=== PATIENT | female | born 1945 | race Caucasian/White ===

== ENCOUNTER 2019-08-20 12:43 | Outpatient (CLI) | payer MEDICARE, SELFPAY ==
--- NOTE | 2019-08-20 12:55 | MM_ITS ---
WS: [id number] RIGHT DIGITAL MAMMOGRAPHY WITH CAD CLINICAL INFORMATION: 6 MO F/U RT BREAST NODULE COMPARISON: 12/31/2018 and 07/14/2018 TECHNIQUE: 3 views of the right breast were obtained. FINDINGS: Fatty-replaced right breast. Again seen is the 7 mm nodule lower inner quadrant right breast with ass ociated calcifications. Adjacent post biopsy marker. This is unchanged in appearance. Ultrasound is p ending. ULTRASOUND BREAST RIGHT TECHNIQUE: Ultrasound right breast focused area of concern. CLINICAL INFORMATION: 6 MO F/U RT BREAST NODULE FINDINGS: Right breast ultrasound 2:00 position 2 cm in the nipple. Again seen is the hypoechoic partially calc ified nodule with adjacent biopsy marker. This is unchanged in appearance since the prior examination s. Recommend return to annual screening mammography. MM/[place] [id number] IMPRESSION: BI-RADS: 2-Benign FOLLOW UP: 1 Year Follow-up Recommend return to annual screening mammography.
== END 2019-08-20 12:44 | disposition home or self-care (01) ==
LOC: RADSHAW 12:46
PROVIDERS: Family Provider Internal Medicine; PCP Internal Medicine; Visit Provider Internal Medicine
DX: N63.14 Unspecified lump in the right breast, lower inner quadrant (principal); R92.8 Other abnormal and inconclusive findings on diagnostic imaging of breast
CPT/HCPCS: 76642; 77065

== ENCOUNTER → 2019-09-07 08:40 | Outpatient (BNVA) | payer MEDICARE, SELFPAY | PROVIDERS: Family Provider Internal Medicine; PCP Internal Medicine; Visit Provider Nurse Practitioner | DX: F43.12 Post-traumatic stress disorder, chronic (principal) | CPT/HCPCS: 99213 ==

== ENCOUNTER 2019-12-01 12:43 | Outpatient (CLI) | payer MEDICARE, SELFPAY ==
--- NOTE | 2019-12-01 12:50 | XR_ITS ---
WS: [id number] Left hip, AP and frog-leg views, 12/01/2019 Clinical Data: PAIN IN L HIP/S/P FALL Comparison: None. Findings: No fractures or dislocations are seen. The hip joint is intact. The soft tissues are not remarkable. The adjacent pelvis is normal. XR/XR hip LT 2-3V wo/w pel* [id number] Impression: Negative left hip.
== END 2019-12-01 12:44 | disposition home or self-care (01) ==
LOC: RAD 12:47
PROVIDERS: Family Provider Internal Medicine; PCP Internal Medicine; Visit Provider Internal Medicine
DX: M25.552 Pain in left hip (principal)
CPT/HCPCS: 73502

== ENCOUNTER 2020-02-03 11:18 | Outpatient (CLI) | payer MEDICARE, SELFPAY ==
--- NOTE | 2020-02-03 11:26 | XR_ITS ---
WS: [id number] Thoracic spine, 3 views, 02/03/2020 Clinical Data: PAIN IN MID BACK, FALL, EVAL FOR COMPRESSION FRACTURE Comparison: None. Findings: There is a compression fracture of the T12 vertebral body with loss of at least 50% of the anterior a nd central vertebral body height. No other compression fractures are seen. The disc heights are normal. The paravertebral regions are unremarkable. There is degenerative change of the upper lumbar vertebral bodies. There is calcification in the region of the left carotid bifur cation. Osteoporosis of the vertebral bodies is present. XR/XR thoracic spine 3V* [id number] Impression: T12 compression fracture with loss of at least 50% of vertebral body height.
== END 2020-02-03 11:19 | disposition home or self-care (01) ==
LOC: RADWPI 11:25
PROVIDERS: Family Provider Internal Medicine; PCP Internal Medicine; Visit Provider Internal Medicine
DX: S22.080A Wedge compression fracture of T11-T12 vertebra, initial encounter for closed fracture (principal); W19.XXXA Unspecified fall, initial encounter
CPT/HCPCS: 72072

== ENCOUNTER 2020-02-08 17:08 | Outpatient (CLI) | payer MEDICARE, SELFPAY ==
--- NOTE | 2020-02-08 17:25 | MR_ITS ---
WS: [id number] EXAM: MR hip LT wo con* [id number] DATE OF EXAMINATION: 02/08/2020, 1805 hours COMPARISON: CT of the abdomen and pelvis from 11/08/2013. HISTORY: 74 years old with multiple falls for the last 2 months. Complaining of left hip pain. TECHNIQUE: Axial and coronal T1 and T2 inversion recovery; left hip sagittal T1 and T2 inversion recovery FINDINGS: There are findings of edema within both sides of the sacrum consistent with sacral insufficiency frac tures. Edema is also present within the left anterior column of the acetabulum with a fracture at the juncti on with the anterior column and left superior pubic ramus. Additional fracture involving the left pub ic body and the adjacent inferior pubic ramus seen. The left proximal femur is without evidence of paco ny fracture. Small amount of inflammatory changes seen within the adductor muscles surrounding the le ft hip most likely compensatory in nature as well as a small amount of greater trochanteric bursitis change. Some minimal right hip trochanteric bursitis changes also noted. Muscle groups show slight changes of atrophy. Uterus is atretic otherwise unremarkable. No adnexal ma ss. MR/MR hip LT wo con* [id number] IMPRESSION: Findings of bilateral sacral insufficiency fractures. Additional insufficiency fracture involving the left hip anterior acetabular co lumn as well as a fracture involving the left tibia body and adjacent left infe rior pubic ramus. No proximal left femur fracture seen. Greater trochanteric bursitis changes bilaterally. Small amount of edema within the adductor muscles medial left hip region most l ikely compensatory in nature.
== END 2020-02-08 17:09 | disposition home or self-care (01) ==
LOC: RADSHAW 17:16
PROVIDERS: PCP Internal Medicine; Visit Provider Internal Medicine
DX: R29.6 Repeated falls (principal); S32.10XA Unspecified fracture of sacrum, initial encounter for closed fracture; R60.0 Localized edema; X58.XXXA Exposure to other specified factors, initial encounter
CPT/HCPCS: 73721

== ENCOUNTER 2020-02-21 13:32 | Outpatient (CLI) | payer MEDICARE, SELFPAY ==
[2020-02-21 15:07] LABS: 25 Hydroxy Vitamin D 49 ng/mL (30-100); Calcium 9.6 mg/dL (8.5-10.5); Parathyroid Hormone 78.2 pg/mL (15-65); Thyroid Stimulating Hormone 1.94 uIU/mL (0.27-4.20)
== END 2020-02-21 13:33 | disposition home or self-care (01) ==
PROVIDERS: PCP Internal Medicine; Visit Provider Internal Medicine
DX: M81.0 Age-related osteoporosis without current pathological fracture (principal)
CPT/HCPCS: 82306; 82310; 83970; 84443

== ENCOUNTER 2020-02-22 14:20 | Outpatient (CLI) | payer MEDICARE, SELFPAY ==
--- NOTE | 2020-02-22 14:24 | XR_ITS ---
WS: [id number] SCREENING DEXA SCAN [facility] CLINICAL INFORMATION: OSTEOPOROSIS COMPARISON: FINDINGS: Lumbar spine bone mineral density likely spuriously elevated due to endplate sclerosis. The L1-L4 bone mineral density measures 1.077 g/cm2. This corresponds to a T score score of -0.9 and Z score of 0.6. Left femoral neck bone mineral density measures 0.696 g/cm2. This corresponds to a T score of -2.5 an d Z score of -1.0. Right femoral neck bone mineral density measures 0.745 g/cm2. This corresponds to a T score -2.1of an d Z score of -0.6. Mean femoral neck bone mineral density measures 0.721 g/cm2. This corresponds to a T score of -2.3 an d Z score of -0.8. XR/XR DEXA axial skeleton* [id number] IMPRESSION: Osteoporosis femoral necks. Patient's FRAX calculated 10 year probability for major osteoporotic fracture i s 23.1 % and osteoporotic hip fracture is 9.6%.
== END 2020-02-22 14:21 | disposition home or self-care (01) ==
PROVIDERS: PCP Internal Medicine; Visit Provider Internal Medicine
DX: M81.0 Age-related osteoporosis without current pathological fracture (principal)
CPT/HCPCS: 77080

== ENCOUNTER → 2020-02-25 13:30 | Outpatient (BNVA) | payer MEDICARE, SELFPAY | PROVIDERS: PCP Internal Medicine; Referring Provider Internal Medicine; Visit Provider Internal Medicine | DX: M80.059A Age-related osteoporosis with current pathological fracture, unspecified femur, initial encounter for fracture (principal); E34.9 Endocrine disorder, unspecified; R79.89 Other specified abnormal findings of blood chemistry | CPT/HCPCS: 99204 ==

== ENCOUNTER → 2020-03-09 07:54 | Outpatient (BNVA) | payer MEDICARE, SELFPAY | PROVIDERS: Family Provider Internal Medicine; PCP Internal Medicine; Visit Provider Nurse Practitioner | DX: F43.12 Post-traumatic stress disorder, chronic (principal); F41.1 Generalized anxiety disorder | CPT/HCPCS: 99213 ==

== ENCOUNTER 2020-03-17 | Outpatient (CLI) | payer MEDICARE, SELFPAY | END 2020-03-17 23:55 | disposition home or self-care (01) | LOC: SPT 06-07 08:13 | PROVIDERS: PCP Internal Medicine; Referring Provider Internal Medicine; Visit Provider Internal Medicine | DX: Z46.89 Encounter for fitting and adjustment of other specified devices (principal); R29.6 Repeated falls | CPT/HCPCS: 97760; L0456 ==

== ENCOUNTER 2020-03-17 12:34 | Outpatient (CLI) | payer MEDICARE, SELFPAY ==
--- NOTE | 2020-03-17 12:40 | XR_ITS ---
WS: [id number] Left hip, AP and frog leg, AP pelvis, 03/17/2020 Clinical Data: LEFT HIP PAIN Comparison: Left hip, 12/01/2019. Findings: There is a fracture of the junction of the left superior pubic ramus with the body of the left ilium. There is a fracture of the inferior left ischiopubic ramus with periosteal new bone formation. No other pelvic fractures are seen. There are no hip fractures. The SI joints and pubic symphysis are not remarkable. XR/XR hip LT 2-3V wo/w pel* [id number] Impression: Fractures of the left superior and left inferior ischiopubic rami which are sev eral weeks old.
== END 2020-03-17 12:35 | disposition home or self-care (01) ==
LOC: RAD 12:38
PROVIDERS: PCP Internal Medicine; Visit Provider Nurse Practitioner Family
DX: S32.592A Other specified fracture of left pubis, initial encounter for closed fracture (principal); X58.XXXA Exposure to other specified factors, initial encounter
CPT/HCPCS: 73502

== ENCOUNTER 2020-04-10 10:19 | Outpatient (CLI) | payer MEDICARE, SELFPAY ==
--- NOTE | 2020-04-10 10:42 | MR_ITS ---
WS: [id number] MRI LUMBAR SPINE NONCONTRAST HISTORY: BACK PAIN WITH RADICULOPATHY/PAIN IN LEFT LEG COMPARISON: CT abdomen and pelvis 11/08/2013 TECHNIQUE: Sagittal and axial multisequence imaging is submitted. CT from 11/08/2013 is reviewed. 5 nonrib-bearing vertebral bodies were identified on the prior CT. The re are probably 11 thoracic vertebral bodies. Thoracolumbar scoliosis. Burst fractures of T10 and T11. T11 retrolisthesis by 12 mm with contact on the thecal sac and conus. There is encroachment upon the thecal sac at the T10 level through the retropulsion of T10 and facet arthritis. These are probably subacute fractures as there is still increased T2 signal on the STIR s equence. L5 anterolisthesis by 12.3 mm. Slight retrolisthesis of L1. 20% compression fracture of L3. Severe disc desiccation at L5-S1. Otherwise mild spondylitic changes throughout the lumbar spine. Conus terminates normally at L1. L1-L2: Diffuse annular disc bulging with a moderate size central disc protrusion and annular fissure. L2-L3: Diffuse annular disc bulging and osteophytic ridging. Moderate bilateral foraminal and subarti cular recess stenosis. L3-L4: Mild annular disc bulging and osteophytic ridging. Mild foraminal narrowing. L4-L5: Mild annular disc bulging. Shallow central disc protrusion. Mild bilateral foraminal narrowing . L5-S1: Mild deformity the central thecal sac. No central stenosis. Moderate bilateral subarticular re cess and foraminal stenosis. MR/MR lumbar spine wo con* [id number] IMPRESSION: 1. 5 lumbar type vertebral bodies and 11 thoracic vertebral bodies. 2. Subacute burst fractures at T10 and T11 with encroachment upon the conus. 3. T11 retropulsion by 12 mm contacting and displacing the ventral thoracic co rd. 4. Moderate bilateral foraminal and subarticular recess stenosis at L2-3. 5. Moderate size central disc protrusion at L1-2 without stenosis. 6. Moderate bilateral subarticular and foraminal stenosis at L5-S1. 7. L5 grade 2 spondylolisthesis. 8. Remote 20% L3 compression fracture. 9. There is additional marrow edema noted in the lower thoracic spine involvin g the facet joints, paravertebral soft tissue and the facets of the thoracic ve rtebral bodies. Follow-up MRI thoracic spine may be necessary for for complete evaluation. Also to better assess the burst fractures in the lower thoracic spi ne. Probably related to the acute fall. These fractures at T10 and T11 have pro gressed since 02/03/2020.
== END 2020-04-10 10:20 | disposition home or self-care (01) ==
PROVIDERS: PCP Internal Medicine; Visit Provider Surgery
DX: M54.9 Dorsalgia, unspecified (principal); M54.10 Radiculopathy, site unspecified; M48.54XA Collapsed vertebra, not elsewhere classified, thoracic region, initial encounter for fracture; M48.061 Spinal stenosis, lumbar region without neurogenic claudication; M51.26 Other intervertebral disc displacement, lumbar region; M48.07 Spinal stenosis, lumbosacral region; M43.16 Spondylolisthesis, lumbar region; M48.56XA Collapsed vertebra, not elsewhere classified, lumbar region, initial encounter for fracture; R93.7 Abnormal findings on diagnostic imaging of other parts of musculoskeletal system; M51.34 Other intervertebral disc degeneration, thoracic region
CPT/HCPCS: 72148

== ENCOUNTER 2020-04-25 12:57 | Outpatient (RCR) | payer MEDICARE, SELFPAY | END 2020-05-22 23:59 | disposition home or self-care (01) | LOC: SPT 12:57 | PROVIDERS: PCP Internal Medicine; Visit Provider Internal Medicine | DX: R29.6 Repeated falls (principal) | CPT/HCPCS: 97110; 97162 ==

== ENCOUNTER 2020-05-23 06:00 | Outpatient (RCR) | payer MEDICARE, SELFPAY | END 2020-06-22 23:59 | disposition home or self-care (01) | LOC: SPT 06:00 | PROVIDERS: PCP Internal Medicine; Visit Provider Internal Medicine | DX: R29.6 Repeated falls (principal) | CPT/HCPCS: 97110 ==

== ENCOUNTER 2020-06-23 06:00 | Outpatient (RCR) | payer MEDICARE, SELFPAY | END 2020-07-23 23:59 | disposition home or self-care (01) | LOC: SPT 06:00 | PROVIDERS: PCP Internal Medicine; Visit Provider Internal Medicine | DX: R29.6 Repeated falls (principal) | CPT/HCPCS: 97110 ==

== ENCOUNTER 2020-08-25 13:24 | Outpatient (CLI) | payer MEDICARE, SELFPAY ==
--- NOTE | 2020-08-25 13:40 | MR_ITS ---
WS: [id number] MRI THORACIC SPINE WITHOUT CONTRAST TECHNIQUE: Sagittal T1, T2 and STIR imaging. Axial T2 imaging. Noncontrast imaging obtained. CLINICAL INFORMATION: STABLE BURST FRACTURE OF T 11-12 VERTEBRA COMPARISON: MRI April 10, 2020 FINDINGS: Counting performed from the craniocervical junction. 11 thoracic vertebral bodies and 5 lumbar verteb ral bodies. This is in keeping with the prior number convention. Mild thoracic kyphosis. Mild thoracic curve. Anterior wedging with chronic compression of the T10 and T11 vertebral bodies not significantly changed since April 10, 2020. Small fluid-filled fracture c lefts. Moderate retropulsion of the posterior inferior cortex at T11 appears unchanged with slight in dentation on the thoracic cord and mild central canal stenosis. Mild central canal stenosis at T10-11 due to mild disc bulging. No new compression fractures. Small central disc protrusion L1-2 with slight effacement of the ventral thecal sac. Mild bony forami nal narrowing worse at bilateral T9-T10, bilateral T10-11, and right T11-T12. Moderate facet arthropa thy in the lower thoracic spine. Cord signal is normal. Large esophageal hiatal hernia.Lobulated soft tissue density in the upper mediastinum partially visua lized measuring 2.4 x 2.1 cm may be arising from the left inferior thyroid or adjacent esophagus. Rec ommend further evaluation with contrast-enhanced chest CT. This abuts the upper thoracic esophagus. MR/MR thoracic spin wo con* [id number] IMPRESSION: 1. Chronic compression fractures T10 and T11 vertebral bodies with anterior we dging unchanged since April 10, 2020. No new compression fractures. 2. Mild retropulsion of the T11 vertebral body with mild disc bulging at T10-T 11 and T11-T12. Slight indentation on the thoracic cord at T11 with mild centra l canal stenosis. Mild central canal stenosis at T10-11. 3. Mild bony foraminal narrowing described above. 4. Large esophageal hiatal hernia with partial intrathoracic stomach. 5. Lobulated soft tissue density in the upper mediastinum partially visualized measuring 2.4 x 2.1 cm may be arising from the left inferior thyroid or adjace nt esophagus. Recommend further evaluation with contrast-enhanced chest CT.
== END 2020-08-25 13:25 | disposition home or self-care (01) ==
PROVIDERS: PCP Internal Medicine; Visit Provider Anesthesiology Pain Medicine
DX: S22.081A Stable burst fracture of T11-T12 vertebra, initial encounter for closed fracture (principal); S22.070A Wedge compression fracture of T9-T10 vertebra, initial encounter for closed fracture; S22.080A Wedge compression fracture of T11-T12 vertebra, initial encounter for closed fracture; K44.9 Diaphragmatic hernia without obstruction or gangrene; X58.XXXA Exposure to other specified factors, initial encounter
CPT/HCPCS: 72146

== ENCOUNTER → 2020-09-12 15:32 | Outpatient (BNVA) | payer MEDICARE, SELFPAY | PROVIDERS: PCP Internal Medicine; Visit Provider Internal Medicine | DX: E34.9 Endocrine disorder, unspecified (principal); E83.59 Other disorders of calcium metabolism; M80.059A Age-related osteoporosis with current pathological fracture, unspecified femur, initial encounter for fracture; M81.0 Age-related osteoporosis without current pathological fracture | CPT/HCPCS: 99214 ==

== ENCOUNTER 2020-09-27 13:11 | Outpatient (CLI) | payer MEDICARE, SELFPAY ==
--- NOTE | 2020-09-27 13:24 | CT_ITS ---
WS: [id number] CT CHEST WITH INTRAVENOUS CONTRAST HISTORY: ABNORMAL MAGNETIC RESONANCE TECHNIQUE: Contiguous 5 mm axial imaging performed on the thorax. Coronal and sagittal reformats are submitted. All CT scans at [facility] use at least one of these dose optimization techniq ues: automated exposure control; mA and/or kV adjustment per patient size (includes targeted exams wh ere dose is matched to clinical indication); or iterative reconstruction. CONTRAST: Visipaque 320; 95 mL IV. DLP: 869.13 mGycm COMPARISON: MRI thoracic spine 08/25/2020. Lungs and central airway: Mild volume loss in the LEFT lung is probably due to mild scoliosis. No pul monary nodule or mass. No pneumonia. Mild dependent changes and subsegmental atelectasis at the lung bases. Pleura: Normal. No pleural effusion. Heart and pericardium: Mildly enlarged heart. Very mild pericardial thickening surrounding the heart but no fluid. Mediastinum and darrin: No mediastinum or hilar adenopathy. Vessels: Moderate atherosclerosis aorta. Normal size pulmonary artery. Chest wall and lower neck: Enlarged LEFT substernal thyroid corresponds to the abnormality seen on th e recent MRI. Portion of the LEFT thyroid extends inferior to the clavicular heads and posterior to t he trachea to abut the esophagus. There is very slight deviation and mass effect upon the esophagus. Thyroid nodule is similar enhancement as the remaining thyroid. Nodule measures 2.6 x 1.3 cm. Upper abdomen: Stomach extends above the diaphragm. There is no obstruction of the stomach or torsion . Majority of the stomach is above the diaphragm. Osseous structures: Severe compression fractures at T10 and T11 with retropulsion of the T11 vertebra l body. Focal osteophyte or bone fragment projecting into the thecal sac and deforming the thecal sac at the T11 level. These findings were noted on the prior MRI. CT/CT chest w con* [id number] IMPRESSION: 1. Soft tissue mass described on the recent MRI thoracic spine corresponds to a LEFT substernal and posterior tracheal thyroid nodule which is probably part of a goiter. Enhancement and density is similar to the remaining thyroid gland. 2. Retrosternal LEFT thyroid nodule abuts and slightly displaces the esophagus to the RIGHT. 3. Intrathoracic stomach.
== END 2020-09-27 13:12 | disposition home or self-care (01) ==
LOC: RADWPI 13:17
PROVIDERS: PCP Internal Medicine; Visit Provider Internal Medicine
DX: R93.89 Abnormal findings on diagnostic imaging of other specified body structures (principal); E04.1 Nontoxic single thyroid nodule
CPT/HCPCS: 71260; Q9967

== ENCOUNTER 2020-09-29 13:34 | Outpatient (CLI) | payer MEDICARE, SELFPAY ==
--- NOTE | 2020-09-29 13:36 | MM_ITS ---
WS: [id number] BILATERAL SCREENING DIGITAL MAMMOGRAM WITH CAD HISTORY: SCREENING COMPARISON: 08/20/2019 and 12/31/2018 Bilateral CC and MLO views submitted. Computer aided detection analyzed. Breast composition: There are scattered areas of fibroglandular density. No suspicious masses, microc alcifications or architectural distortion. Benign calcifications are stable in the RIGHT breast. MM/[place] [id number] IMPRESSION: BI-RADS: 2-Benign FOLLOW UP: 1 Year Follow-up
== END 2020-09-29 13:35 | disposition home or self-care (01) ==
LOC: RADSHAW 13:35
PROVIDERS: PCP Internal Medicine; Visit Provider Internal Medicine
DX: Z12.31 Encounter for screening mammogram for malignant neoplasm of breast (principal)
CPT/HCPCS: 77067

== ENCOUNTER → 2020-11-10 11:58 | Outpatient (BNVA) | payer MEDICARE, SELFPAY | PROVIDERS: PCP Internal Medicine; Visit Provider Surgery | DX: Z01.812 Encounter for preprocedural laboratory examination (principal); Z20.822 Contact with and (suspected) exposure to COVID-19 | CPT/HCPCS: 87635 ==

== ENCOUNTER 2020-11-13 09:47 | Inpatient (IN) | payer MEDICARE, SELFPAY ==
[2020-11-13] VITALS (11 sets, daily range): BP systolic 100–158; BP diastolic 54–88; PULSE 61–91; RESP 17–20; TEMP 36.6–37.2; O2SAT 90–99; BMI 25.9
--- NOTE | 2020-11-13 09:50 | CT_ITS ---
WS: [id number] CT HEAD NONCONTRAST HISTORY: HEADACHE TECHNIQUE: Contiguous axial imaging performed through the brain in 2.5 mm imaging. Bone and soft tiss ue windows. Sagittal and coronal reformats reviewed. All CT scans at [facility] use at le ast one of these dose optimization techniques: automated exposure control; mA and/or kV adjustment pe r patient size (includes targeted exams where dose is matched to clinical indication); or iterative r econstruction. DLP: 1203.20 mGy-cm. COMPARISON: None available. No acute intracranial hemorrhage, midline shift or mass effect. Mild atrophy and mild chronic microvascular ischemic disease. No large territory prior infarcts. Ventricles: Ventricles and extra-axial spaces are prominent on the basis of atrophy. There are a few foci of air associated with the RIGHT dorsum sellae. This may be pneumatized bone. Th e wall of the adjacent sinus cavities appears intact. Paranasal sinuses: Near complete opacification of the RIGHT sphenoid sinus. Mastoid air cells: Well pneumatized. Calvarium and scalp: Skull is intact with no soft tissue edema or swelling. CT/CT head wo con* [id number] IMPRESSION: 1. No acute intracranial hemorrhage or edema. 2. Mild atrophy and mild chronic microvascular ischemic disease.
--- NOTE | 2020-11-13 09:50 | XR_ITS ---
WS: [id number] Exam: XR chest 1V portable [id number] Date/Time of Exam: 11/13/2020 9:53 AM Reason For Exam: CVA Comparison 03/01/2014. The lungs are fully expanded and clear. Heart size is upper limits normal. No pleural effusions. Ther e may be a hiatal hernia present. Regional bony structures are intact. The mediastinum is not widened . XR/XR chest 1V portable [id number] IMPRESSION: 1. No acute cardiopulmonary finding. 2. There may be a hiatal hernia present
--- NOTE | 2020-11-13 09:51 | ECG_ITS ---
[facility] Test Date: 2020-11-13 Pat Name: Shanon Chávez Department: Room: Gender: Female [employer]: : [id number] Requested By: Darci Cespedes Order Number: [id number] Dl MD: Chris Monson M.D. Measurements Intervals [place] Rate: 76 P: 54 WV: 177 QRS: 51 QRSD: 78 T: 42 QT: 379 QTc: 427 Interpretive Statements SINUS RHYTHM LOW QRS VOLTAGE [QRS DEFLECTION < 0.5/1.0 mV IN LIMB/CHEST LEADS] No previous ECG available for comparison Electronically Signed On 11-13-2020 16:15:10 CDT by Chris Monson M.D. [email or web address]
--- NOTE | 2020-11-13 10:00 | ED_ITS ---
HPI - General Adult General: Chief complaint: Altered Mental Status Stated complaint: ams/ slurred speech/ constricted pupils Time Seen by Provider: 11/13/20 09:49 Source: patient, EMS and RN notes reviewed Mode of arrival: EMS Limitations: altered mental status History of Present Illness: HPI narrative: This patient is a 75-year-old female who presents to the emergency department from confusion/altered mental status. Patient is a history of chronic pain and does take hydrocodone regularly. Initially the concern by family was the patient might have overdosed. Patient has been suffering from some shaking over the past few days and complained of increased left hip pain. Patient was having some slurred speech last night around 8 PM but the family let her go to bed. Patient awakened this morning and having some more difficulty with confusion. Glucose at the bedside was 74. Patient is is awake and alert answers questions appropriately. But is somewhat slow to respond at times. Does not appear to be in acute strokelike pattern however we will CT scan the head and evaluate treat further as needed. Patient does take multiple medications that are on the patient's medication list. The patient states she has been taking her medications regularly. Onset (ago): day(s) Associated symptoms: Reports confusion; Deny chest pain, dyspnea, headache(s), nausea, rash, palpitations or vomiting Review of Systems General: Reports: 10 or more systems reviewed and unremarkable except in HPI and below Const: Denies: fever(s), chills, body aches or fatigue Eyes: Denies: change in vision or blurry vision ENMT: Denies: throat pain, hoarseness or mouth pain Card: Denies: chest pain, palpitations, irregular heart rhythm, edema, swelling of feet/ankles or lightheadedness Resp: Denies: dyspnea, productive cough, non-productive cough, wheezing or pain on inspiration GI: Denies: abdominal pain, nausea or vomiting : Denies: flank pain, difficulty voiding, dysuria, urinary frequency, urinary urgency or urinary hesitancy Musc: Denies: neck pain, back pain, extremity pain, extremity swelling, joint pain, joint swelling, joint redness, joint warmth or limited range of motion Skin/Breast: Denies: rash, pruritus, erythema or skin tenderness Neuro: Reports: sensory changes and confusion; Denies: headache(s), numbness in extremities or weakness in extremities Psych: Denies: anxiety or depression PFS ED PFSH: Medical History Depression Diabetes Dyslipidemia Post-traumatic stress disorder, chronic Surgical History H/O left wrist surgery Status post colonoscopy Family History Mother Diabetes Father No problems noted. Social History Smoking and tobacco status: never smoked Alcohol intake: never Physical Exam Const: COMMON NORMALS: no acute distress, average body habitus, no limitations, healthy appearing, alert and well nourished O RIENTATION/CONSCIOUSNESS: Yes oriented to person HENMT: COMMON NORMALS: normocephalic, atraumatic, hearing grossly normal bilaterally, external ears normal, EAC's normal, TM's normal bilaterally, Normal external nose present, Normal nasal mucous membranes and turbinates present, moist oral mucous membranes, oropharynx normal, dentition normal and gingiva normal HEAD & SCALP: normocephalic and atraumatic NOSE: Normal external nose present and Normal nasal mucous membranes and turbinates present EXTERNAL EAR: Yes external ears normal EXTERNAL AUDITORY CANAL: EAC's normal TYMPANIC MEMBRANE: TM's normal bilaterally Neck/C-Spine: COMMON NORMALS: full ROM, no lymphadenopathy, supple, no meninge al signs, no JVD, Thyroid normal and No carotid bruits THYROID: Thyroid normal Chest: COMMONS NORMALS: normal inspection of the chest, normal palpation of entire chest wall, normal inspection of the breasts and normal palpation of the breasts Breast/axilla inspection: Yes normal inspection of the breasts BREAST/AXILLA PALPATION: Yes normal palpation of the breasts Resp: COMMON NORMALS: normal respiratory effort, No retractions, No use of accessory muscles, clear to auscultation bilaterally and percussion normal AUSCULTATION: clear to auscultation bilaterally PERCUSSION: percussion normal Cardio: COMMON NORMALS: no JVD, regular rate, regular rhythm, S1 normal heart sound present, S2 normal heart sound present, No gallops present (Cardio), No clicks present (Cardio), No murmurs present (Cardio), No rub (Cardio) and Peripheral pulses 2+ throughout RATE: regular rate RHYTHM: regular rhythm HEART SOUNDS: S1 normal heart sound present and S2 normal heart sound present PERIPHERAL PULSES: Peripheral pulses 2+ throughout GI: COMMON NORMALS: Normal to inspection, nondistended, normoactive bowel sounds present, Soft to palpation, non-tender, No hepatosplenomegaly present, no masses and no bruits PALPATION: Yes Soft to palpation and Yes No hepatosplenomegaly present : COMMON NORMALS: Yes no CVA tenderness, Yes normal external appearance, Yes normal appearance of the vagina, Yes normal appearance of the cervix, Yes normal bimanual exam, Yes No adnexal tenderness and Yes no masses BLADDER/KIDNEY EXAM: Yes no CVA tenderness BIMANUAL EXAM - VAGINA & UTERUS: Yes normal bimanual exam Back/Pelvis: COMMON NORMALS: no CVA tenderness, thoracic and lumbar spine normal to inspection, no thoracic nor lumbar tenderness, thoraco-lumbar ROM normal and straight leg raise negative bilaterally Extremity: COMMON NORMALS: normal to inspection, full ROM, capillary refill normal, no joint enlargement, no clubbing, cyanosis or edema, no calf tenderness and no pedal edema Neuro: COMMON NORMALS: CN's II-XII intact bilaterally, moves all extremities, no focal motor deficits and no sensory deficits noted SENSORIUM/ORIENTATION: Yes alert and Yes oriented to person MENINGEAL SIGNS: Yes no meningeal signs Course Reevaluation(s): Reevaluation #1: Patient is restless and appears to be a little bit confused. Patient explained in her IV lines and electrodes. Will give patient Ativan 25 mg to try to help calm down. Time: 10:29 Reevaluation #2: Patient has elevated lactate level. I do not believe this patient has sepsis but I do believe the lactate level is elevated due to the patient's tremors and shaking. Agitation. Patient has been treated with antibiotics and has had IV fluid bolus. However I do not believe the patient needs in the complete 30 mL/kg bolus at this time. But may need additional fluids. We will repeat the initial 500 cc bolus of normal saline and then will put her on normal saline at 125 mL's per hour. Patient will be admitted to the hospital. Rocephin given for UTI. Time: 11:47 Reevaluation #3: I did discuss at length with patient spouse at the bedside he stated that patient was having issues this morning when he come back into the bedroom about 630 this morning the patient was sitting and squatting and fighting with things and they went near. Patient has had a history of having problems with her medication and at times the states that he had had his medications for the patient was taken. He states normally everything is okay but she does have issues he is agreeable with patient be admitted to the hospital. Patient is calm at this time and resting comfortably after second 0.5 of Ativan has been given. Time: 11:59 Consultations: Consultation #1: I did discuss at length with Dr. Torres hospitalist. He will come see the patient and evaluate and accepts the patient for admission. Time: 11:59 Consultation #2: Patient was seen and evaluated by Dr. Torres who believes patient can go to the [facility] floor with observation with one-to-one at the bedside. Time: 12:42 Vital Signs: Vital signs: Vital Signs Temperature 98.8 F 11/13/20 09:50 Pulse Rate 84 11/13/20 10:07 Respiratory Rate 18 11/13/20 10:07 Blood Pressure 158/78 11/13/20 10:07 Pulse Oximetry 99 11/13/20 10:07 MDM - General Adult MDM Narrative: Medical decision making narrative: This patient is a 75-year-old female who presents to the emergency department from confusion/altered mental status. Patient is a history of chronic pain and does take hydrocodone regularly. Initially the concern by family was the patient might have overdosed. Patient has been suffering from some shaking over the past few days and complained of increased left hip pain. Patient was having some slurred speech last night around 8 PM but the family let her go to bed. Patient awakened this morning and having some more difficulty with confusion. Glucose at the bedside was 74. Patient is is awake and alert answers questions appropriately. But is somewhat slow to respond at times. Does not appear to be in acute strokelike pattern however we will CT scan the head and evaluate treat further as needed. Patient does take multiple medications that are on the patient's medication list. The patient states she has been taking her medications regularly. Patient appears to have be a urinary tract infection. Patient started on Rocephin. We will admit the patient for further altercations with patient and treatment. Patient has elevated lactate level. I do not believe this patient has sepsis but I do believe the lactate level is elevated due to the patient's tremors and shaking. Agitation. Patient has been treated with antibiotics and has had IV fluid bolus. However I do not believe the patient needs in the complete 30 mL/kg bolus at this time. But may need additional fluids. We will repeat the initial 500 cc bolus of normal saline and then will put her on normal saline at 125 mL's per hour. Patient will be admitted to the hospital. Rocephin given for UTI. I did discuss at length with patient spouse at the bedside he stated that patient was having issues this morning when he come back into the bedroom about 630 this morning the patient was sitting and squatting and fighting with things and they went near. Patient has had a history of having problems with her m edication and at times the states that he had had his medications for the patient was taken. He states normally everything is okay but she does have issues he is agreeable with patient be admitted to the hospital. Patient is calm at this time and resting comfortably after second 0.5 of Ativan has been given. I did discuss at length with Dr. Torres hospitalist. [facility] and accepts the patient for [facility]. Medical Records: Attestation: I reviewed the patient's medical records. Lab Data: Attestation: I reviewed the patient's lab results. Labs: Lab Results 11/13/20 11/13/20 11/13/20 Range/Units 09:52 09:59 10:05 WBC 16.9 H (4.0-10.0) 10^3/ uL RBC 4.22 (4.1-5.3) 10^6/u L Hgb 12.5 (11.5-15.3) g/dL Hct 38.7 (37.0-47.0) % MCV 91.7 (81-99) fL MCH 29.6 (28.0-34.0) pg MCHC 32.3 (30.0-36.0) g/dL RDW 13.6 (12.1-15.1) % Plt Count 303 (130-400) 10^3/c mm MPV 12.5 H (7.4-10.4) fL Neut % (Auto) 91.7 % Lymph % (Auto) 5.0 % Chaves % (Auto) 2.7 % Eos % (Auto) 0.0 % Baso % (Auto) 0.2 % Neut # (Auto) 15.44 H (1.8-7.7) 10^3/u L Lymph # (Auto) 0.9 (0.8-4.8) 10^3/u L Chaves # (Auto) 0.5 (0.2-0.9) 10^3/u L Eos # (Auto) 0.0 (0.0-0.8) 10^3/u L Baso # (Auto) 0.0 (0.0-0.1) 10^3/u L Nucleated RBC % (a uto) 0 % Nucleated RBCs # 0.0 /100WBC PT (12.1-14.9) SECO NDS INR (0.8-1.2) APTT (23.9-36.7) SECO NDS Specimen Type Arterial Sample Site Radial, right ABG pH 7.56 H (7.35-7.45) ABG pCO2 22.2 L (35-45) mmHg ABG pO2 84.4 (80.0-100.0) mmH g ABG HCO3 19.8 L (22-26) mmol/L ABG O2 Saturation 98.5 ABG Base Excess -0.7 (-2.0-2.0) mmol/ L Timmy Test Pos A-a O2 Gradient 4.8 L (5-10) mmHg Hematocrit 40.1 (37-47) % Hgb O2 Saturation 96.9 (95-100) % Carboxyhemoglobin 0.8 (0.4-20.1) %THgb Methemoglobin 0.8 (0.4-1.5) % Total Hemoglobin 13.1 (12-16) g/dL Sodium 143.0 (131-143) mmol/L Potassium 3.9 (3.5-5.0) mmol/L Glucose 78.0 (70-115) mg/dL Ionized Calcium 1.1 (1.1-1.4) mmol/L O2 Delivery Device Room air FiO2 21.0 % Secondary English Teacher ID Ed Chloride (98-107) mmol/L Carbon Dioxide (22-29) mmol/L Anion Gap (5-19) BUN (8-23) mg/dL Creatinine (0.5-0.9) mg/dL GFR Calculation POC Glucose 72 (70-110) mg/dL Calculated Osmolal ity (285-295) mOsm/k g Lactic Acid (0.5-2.2) mmol/L Calcium (8.5-10.5) mg/dL Total Bilirubin (0.15-1.2) mg/dL AST (0-32) U/L ALT (0-33) U/L Alkaline Phosphata se (35-105) IU/L Ammonia (11-51) umol/L Creatine Kinase (26-192) U/L Troponin T Baselin e (0-10) ng/L NT-Pro-B Natriuret Pep (0-125) pg/mL Total Protein (6.6-8.7) g/dL Albumin (3.5-5.2) g/dL Globulin (1.3-4.6) g/dL Urine Color (Yellow) Urine Appearance (CLEAR) Urine pH (5-7) Ur Specific Gravit y (1.005-1.030) Urine Protein (Negative) Urine Glucose (UA) (Normal) Urine Ketones (Negative) Urine Blood (Negative) Urine Nitrate (Negative) Urine Bilirubin (Negative) Urine Urobilinogen (Negative) mg/dL Ur Leukocyte Chrystal ase (Negative) Urine RBC (0-2) /hpf Urine WBC (0-5) /hpf Ur Squamous Epith Cells (0-5) /hpf Amorphous Sediment Urine Bacteria (NONE) /hpf Salicylates (3-10) mg/dL Urine Opiates Scre en (Negative) ng/mL Acetaminophen (10-30) ug/mL Ur Barbiturates Sc reen (Negative) ng/mL Ur Phencyclidine S crn (Negative) ng/mL Ur Amphetamines Sc reen (Negative) ng/mL U Benzodiazepines Scrn (Negative) ng/mL Urine Cocaine Scre en (Negative) ng/mL U Marijuana (THC) Screen (Negative) ng/mL Ethyl Alcohol (0-10) mg/dL SARS-CoV-2 Ag (Rap id) (Negative) 11/13/20 11/13/20 11/13/20 Range/Units 10:05 10:05 10:05 WBC (4.0-10.0) 10^3/ uL RBC (4.1-5.3) 10^6/u L Hgb (11.5-15.3) g/dL Hct (37.0-47.0) % MCV (81-99) fL MCH (28.0-34.0) pg MCHC (30.0-36.0) g/dL RDW (12.1-15.1) % Plt Count (130-400) 10^3/c mm MPV (7.4-10.4) fL Neut % (Auto) % Lymph % (Auto) % Chaves % (Auto) % Eos % (Auto) % Baso % (Auto) % Neut # (Auto) (1.8-7.7) 10^3/u L Lymph # (Auto) (0.8-4.8) 10^3/u L Chaves # (Auto) (0.2-0.9) 10^3/u L Eos # (Auto) (0.0-0.8) 10^3/u L Baso # (Auto) (0.0-0.1) 10^3/u L Nucleated RBC % (a uto) % Nucleated RBCs # /100WBC PT 12.80 (12.1-14.9) SECO NDS INR 0.94 (0.8-1.2) APTT 30.1 (23.9-36.7) SECO NDS Specimen Type Sample Site ABG pH (7.35-7.45) ABG pCO2 (35-45) mmHg ABG pO2 (80.0-100.0) mmH g ABG HCO3 (22-26) mmol/L ABG O2 Saturation ABG Base Excess (-2.0-2.0) mmol/ L Timmy Test A-a O2 Gradient (5-10) mmHg Hematocrit (37-47) % Hgb O2 Saturation (95-100) % Carboxyhemoglobin (0.4-20.1) %THgb Methemoglobin (0.4-1.5) % Total Hemoglobin (12-16) g/dL Sodium 142 (131-143) mmol/L Potassium 4.1 (3.5-5.0) mmol/L Glucose 71 (70-115) mg/dL Ionized Calcium (1.1-1.4) mmol/L O2 Delivery Device FiO2 % Secondary English Teacher ID Chloride 106 (98-107) mmol/L Carbon Dioxide 20 L (22-29) mmol/L Anion Gap 20.1 H (5-19) BUN 22 (8-23) mg/dL Creatinine 1.0 H (0.5-0.9) mg/dL GFR Calculation Not Reportable POC Glucose (70-110) mg/dL Calculated Osmolal ity 296 H (285-295) mOsm/k g Lactic Acid 2.9 H (0.5-2.2) mmol/L Calcium 8.7 (8.5-10.5) mg/dL Total Bilirubin 0.6 (0.15-1.2) mg/dL AST 23 (0-32) U/L ALT 14 (0-33) U/L Alkaline Phosphata se 137 H (35-105) IU/L Ammonia (11-51) umol/L Creatine Kinase 81 (26-192) U/L Troponin T Baselin e (0-10) ng/L NT-Pro-B Natriuret Pep 534 H (0-125) pg/mL Total Protein 6.8 (6.6-8.7) g/dL Albumin 4.2 (3.5-5.2) g/dL Globulin 2.6 (1.3-4.6) g/dL Urine Color (Yellow) Urine Appearance (CLEAR) Urine pH (5-7) Ur Specific Gravit y (1.005-1.030) Urine Protein (Negative) Urine Glucose (UA) (Normal) Urine Ketones (Negative) Urine Blood (Negative) Urine Nitrate (Negative) Urine Bilirubin (Negative) Urine Urobilinogen (Negative) mg/dL Ur Leukocyte Chrystal ase (Negative) Urine RBC (0-2) /hpf Urine WBC (0-5) /hpf Ur Squamous Epith Cells (0-5) /hpf Amorphous Sediment Urine Bacteria (NONE) /hpf Salicylates < 0.3 L (3-10) mg/dL Urine Opiates Scre en (Negative) ng/mL Acetaminophen < 5.0 L (10-30) ug/mL Ur Barbiturates Sc reen (Negative) ng/mL Ur Phencyclidine S crn (Negative) ng/mL Ur Amphetamines Sc reen (Negative) ng/mL U Benzodiazepines Scrn (Negative) ng/mL Urine Cocaine Scre en (Negative) ng/mL U Marijuana (THC) Screen (Negative) ng/mL Ethyl Alcohol < 10 (0-10) mg/dL SARS-CoV-2 Ag (Rap id) (Negative) 11/13/20 11/13/20 11/13/20 Range/Units 10:05 10:05 10:14 WBC (4.0-10.0) 10^3/ uL RBC (4.1-5.3) 10^6/u L Hgb (11.5-15.3) g/dL Hct (37.0-47.0) % MCV (81-99) fL MCH (28.0-34.0) pg MCHC (30.0-36.0) g/dL RDW (12.1-15.1) % Plt Count (130-400) 10^3/c mm MPV (7.4-10.4) fL Neut % (Auto) % Lymph % (Auto) % Chaves % (Auto) % Eos % (Auto) % Baso % (Auto) % Neut # (Auto) (1.8-7.7) 10^3/u L Lymph # (Auto) (0.8-4.8) 10^3/u L Chaves # (Auto) (0.2-0.9) 10^3/u L Eos # (Auto) (0.0-0.8) 10^3/u L Baso # (Auto) (0.0-0.1) 10^3/u L Nucleated RBC % (a uto) % Nucleated RBCs # /100WBC PT (12.1-14.9) SECO NDS INR (0.8-1.2) APTT (23.9-36.7) SECO NDS Specimen Type Sample Site ABG pH (7.35-7.45) ABG pCO2 (35-45) mmHg ABG pO2 (80.0-100.0) mmH g ABG HCO3 (22-26) mmol/L ABG O2 Saturation ABG Base Excess (-2.0-2.0) mmol/ L Timmy Test A-a O2 Gradient (5-10) mmHg Hematocrit (37-47) % Hgb O2 Saturation (95-100) % Carboxyhemoglobin (0.4-20.1) %THgb Methemoglobin (0.4-1.5) % Total Hemoglobin (12-16) g/dL Sodium (131-143) mmol/L Potassium (3.5-5.0) mmol/L Glucose (70-115) mg/dL Ionized Calcium (1.1-1.4) mmol/L O2 Delivery Device FiO2 % Secondary English Teacher ID Chloride (98-107) mmol/L Carbon Dioxide (22-29) mmol/L Anion Gap (5-19) BUN (8-23) mg/dL Creatinine (0.5-0.9) mg/dL GFR Calculation POC Glucose (70-110) mg/dL Calculated Osmolal ity (285-295) mOsm/k g Lactic Acid (0.5-2.2) mmol/L Calcium (8.5-10.5) mg/dL Total Bilirubin (0.15-1.2) mg/dL AST (0-32) U/L ALT (0-33) U/L Alkaline Phosphata se (35-105) IU/L Ammonia 18 (11-51) umol/L Creatine Kinase (26-192) U/L Troponin T Baselin e 33 H (0-10) ng/L NT-Pro-B Natriuret Pep (0-125) pg/mL Total Protein (6.6-8.7) g/dL Albumin (3.5-5.2) g/dL Globulin (1.3-4.6) g/dL Urine Color Yellow (Yellow) Urine Appearance Hazy A (CLEAR) Urine pH 6.5 (5-7) Ur Specific Gravit y 1.010 (1.005-1.030) Urine Protein Neg (Negative) Urine Glucose (UA) Norm (Normal) Urine Ketones Negative (Negative) Urine Blood Neg (Negative) Urine Nitrate Negative (Negative) Urine Bilirubin Neg (Negative) Urine Urobilinogen Norm (Negative) mg/dL Ur Leukocyte Chrystal ase 2+ H (Negative) Urine RBC 0-4 H (0-2) /hpf Urine WBC 40-55 H (0-5) /hpf Ur Squamous Epith Cells 5-10 H (0-5) /hpf Amorphous Sediment Not Reportable Urine Bacteria 2+ H (NONE) /hpf Salicylates (3-10) mg/dL Urine Opiates Scre en (Negative) ng/mL Acetaminophen (10-30) ug/mL Ur Barbiturates Sc reen (Negative) ng/mL Ur Phencyclidine S crn (Negative) ng/mL Ur Amphetamines Sc reen (Negative) ng/mL U Benzodiazepines Scrn (Negative) ng/mL Urine Cocaine Scre en (Negative) ng/mL U Marijuana (THC) Screen (Negative) ng/mL Ethyl Alcohol (0-10) mg/dL SARS-CoV-2 Ag (Rap id) (Negative) 11/13/20 11/13/20 Range/Units 10:14 10:45 WBC (4.0-10.0) 10^3/ uL RBC (4.1-5.3) 10^6/u L Hgb (11.5-15.3) g/dL Hct (37.0-47.0) % MCV (81-99) fL MCH (28.0-34.0) pg MCHC (30.0-36.0) g/dL RDW (12.1-15.1) % Plt Count (130-400) 10^3/c mm MPV (7.4-10.4) fL Neut % (Auto) % Lymph % (Auto) % Chaves % (Auto) % Eos % (Auto) % Baso % (Auto) % Neut # (Auto) (1.8-7.7) 10^3/u L Lymph # (Auto) (0.8-4.8) 10^3/u L Chaves # (Auto) (0.2-0.9) 10^3/u L Eos # (Auto) (0.0-0.8) 10^3/u L Baso # (Auto) (0.0-0.1) 10^3/u L Nucleated RBC % (a uto) % Nucleated RBCs # /100WBC PT (12.1-14.9) SECO NDS INR (0.8-1.2) APTT (23.9-36.7) SECO NDS Specimen Type Sample Site ABG pH (7.35-7.45) ABG pCO2 (35-45) mmHg ABG pO2 (80.0-100.0) mmH g ABG HCO3 (22-26) mmol/L ABG O2 Saturation ABG Base Excess (-2.0-2.0) mmol/ L Timmy Test A-a O2 Gradient (5-10) mmHg Hematocrit (37-47) % Hgb O2 Saturation (95-100) % Carboxyhemoglobin (0.4-20.1) %THgb Methemoglobin (0.4-1.5) % Total Hemoglobin (12-16) g/dL Sodium (131-143) mmol/L Potassium (3.5-5.0) mmol/L Glucose (70-115) mg/dL Ionized Calcium (1.1-1.4) mmol/L O2 Delivery Device FiO2 % Secondary English Teacher ID Chloride (98-107) mmol/L Carbon Dioxide (22-29) mmol/L Anion Gap (5-19) BUN (8-23) mg/dL Creatinine (0.5-0.9) mg/dL GFR Calculation POC Glucose (70-110) mg/dL Calculated Osmolal ity (285-295) mOsm/k g Lactic Acid (0.5-2.2) mmol/L Calcium (8.5-10.5) mg/dL Total Bilirubin (0.15-1.2) mg/dL AST (0-32) U/L ALT (0-33) U/L Alkaline Phosphata se (35-105) IU/L Ammonia (11-51) umol/L Creatine Kinase (26-192) U/L Troponin T Baselin e (0-10) ng/L NT-Pro-B Natriuret Pep (0-125) pg/mL Total Protein (6.6-8.7) g/dL Albumin (3.5-5.2) g/dL Globulin (1.3-4.6) g/dL Urine Color (Yellow) Urine Appearance (CLEAR) Urine pH (5-7) Ur Specific Gravit y (1.005-1.030) Urine Protein (Negative) Urine Glucose (UA) (Normal) Urine Ketones (Negative) Urine Blood (Negative) Urine Nitrate (Negative) Urine Bilirubin (Negative) Urine Urobilinogen (Negative) mg/dL Ur Leukocyte Chrystal ase (Negative) Urine RBC (0-2) /hpf Urine WBC (0-5) /hpf Ur Squamous Epith Cells (0-5) /hpf Amorphous Sediment Urine Bacteria (NONE) /hpf Salicylates (3-10) mg/dL Urine Opiates Scre en Positive H (Negative) ng/mL Acetaminophen (10-30) ug/mL Ur Barbiturates Sc reen Negative (Negative) ng/mL Ur Phencyclidine S crn Negative (Negative) ng/mL Ur Amphetamines Sc reen Negative (Negative) ng/mL U Benzodiazepines Scrn Negative (Negative) ng/mL Urine Cocaine Scre en Negative (Negative) ng/mL U Marijuana (THC) Screen Negative (Negative) ng/mL Ethyl Alcohol (0-10) mg/dL SARS-CoV-2 Ag (Rap id) Negative (Negative) Imaging Data^: CT Head: Attestation: I personally reviewed and interpreted this imaging study as follows: Radiologist's impression: IMPRESSION: 1. No acute intracranial hemorrhage or edema. 2. Mild atrophy and mild chronic microvascular ischemic disease. CXR: Attestation: I personally reviewed and interpreted this imaging study as follows: Radiologist's impression: IMPRESSION: 1. No acute cardiopulmonary finding. 2. There may be a hiatal hernia present EKG Data^: EKG 1: Attestation: I personally reviewed and interpreted this EKG as follows: EKG interpretation date: 11/13/20 EKG interpretation time: 10:07 Prior EKG tracings: available for review Interpretation: Sinus rhythm heart rate 76 nonspecific EKG changes. Computer generated interpretation: Chest X-Ray 11/13/20 09:50 IMPRESSION: 1. No acute cardiopulmonary finding. 2. There may be a hiatal hernia present Head CT 11/13/20 09:50 IMPRESSION: 1. No acute intracranial hemorrhage or edema. 2. Mild atrophy and mild chronic microvascular ischemic disease. ABG Data^: ABG Interpretation 1: ABG results: 11/13/20 09:52 ABG pH 7.56 H ABG pCO2 22.2 L ABG pO2 84.4 ABG HCO3 19.8 L ABG O2 Saturation 98.5 ABG Base Excess -0.7 Respiratory alkalosis. Attestation: I personally reviewed and interpreted this ABG as follows: Discharge Plan Discharge Patient Disposition: Admitted As Inpatient Clinical Impression: Altered mental status, Acute UTI, Medication adverse effect, Chronic pain, Elevated lactic acid level Condition: Stable Coding Level of Care Code ED V [employer] for Chg Fwd Exam Comprehensive
[2020-11-13 10:02] LABS: Glucose Point of Care 72 mg/dL (70-110)
[2020-11-13 10:02] LABS: ABG PCO2 22.2 mmHg (35-45); ABG PH Result 7.56 (7.35-7.45); Alveolar-Arterial Oxygen Gradi 4.8 mmHg (5-10); Arterial Blood Gas Hematocrit 40.1 % (37-47); Base Excess ABG -0.7 mmol/L (-2.0-2.0); Blood Gas Allen Test Pos; Blood Gas Sample Type Arterial; Carboxyhemoglobin 0.8 %THgb (0.4-20.1); HCO3 ABG 19.8 mmol/L (22-26); HGB O2 Sat 96.9 % (95-100); Ionized Calcium Level - ABG 1.1 mmol/L (1.1-1.4); Methemoglobin 0.8 % (0.4-1.5); Oxygen Saturation ABG 98.5; PO2 ABG 84.4 mmHg (80.0-100.0); Potassium Level - ABG 3.9 mmol/L (3.5-5.0); Total Hemoglobin 13.1 g/dL (12-16)
[2020-11-13 10:03] LABS: Blood Gas Operator Identificat ED; Blood Gas Sample Site Radial, right; Oxygen Device ROOM AIR
[2020-11-13 10:16] LABS: Basophils % 0.2 %; Hematocrit 38.7 % (37.0-47.0); Hemoglobin 12.5 g/dL (11.5-15.3); Lymphocytes # 0.9 10^3/uL (0.8-4.8); Mean Corpuscular HGB Conc 32.3 g/dL (30.0-36.0); Mean Corpuscular Hemoglobin 29.6 pg (28.0-34.0); Mean Corpuscular Volume 91.7 fL (81-99); Mean Platelet Volume 12.5 fL (7.4-10.4); Monocytes # 0.5 10^3/uL (0.2-0.9); Monocytes % 2.7 %; Neutrophils # 15.44 10^3/uL (1.8-7.7); Neutrophils % 91.7 %; Nucleated Red Blood Cells % 0 %; Platelet Count 303 10^3/cmm (130-400); Red Blood Count 4.22 10^6/uL (4.1-5.3); Red Cell Distribution Width 13.6 % (12.1-15.1); White Blood Count 16.9 10^3/uL (4.0-10.0)
[2020-11-13] MEDS: dextrose 50% syringe 50 mL 25 ML IVP (10:17)
[2020-11-13] MEDS: sodium chloride 0.9% 500 ML IV ×2 (10:18→11:51)
[2020-11-13 10:31] LABS: Add Urine Microscopic? YES; Bilirubin Urine Neg (Negative); Blood Urine Neg (Negative); Glucose Urine UA Norm (Normal); Ketones Urine Negative (Negative); Leukocyte Esterase Urine 2+ (Negative); Nitrate Urine Negative (Negative); Protein Urine Neg (Negative); Urine Appearance Hazy (CLEAR); Urine Color Yellow (Yellow); Urobilinogen Urine Norm (Negative); pH Urine 6.5 (5-7)
[2020-11-13 10:36] LABS: INR 0.94 (0.8-1.2)
[2020-11-13 10:37] LABS: Partial Thromboplastin Time 30.1 SECONDS (23.9-36.7)
[2020-11-13] MEDS: LORazepam 2 mg/mL INJ 1 mL 0.5 MG IVP ×2 (10:37→11:09)
[2020-11-13 10:40] LABS: Amphetamines Screen Urine Negative (Negative); Barbiturates Screen Urine Negative (Negative); Benzodiazepines Screen Urine Negative (Negative); Cocaine Screen Urine Negative (Negative); Opiate Screen Urine Positive (Negative); PCP Screen Urine Negative (Negative); RBC Urine 0-4 /hpf (0-2); THC Screen Urine Negative (Negative); WBC Urine 40-55 /hpf (0-5)
[2020-11-13 10:42] LABS: Bacteria Urine 2+ /hpf
[2020-11-13] MEDS: cefTRIAXone 1,000 MG in sodium chloride 0.9% (plus) 50 ML 100 MG IV (10:42)
[2020-11-13 10:43] LABS: Add Urine Culture? Yes
[2020-11-13 11:08] LABS: SARS Covid-2 Antigen Negative (Negative)
[2020-11-13 11:12] LABS: Ammonia 18 umol/L (11-51); Lactic Sepsis W/Reflex 2.9 mmol/L (0.5-2.2); Troponin(5th) Baseline 33 ng/L (0-10)
--- NOTE | 2020-11-13 11:14 | PC.NURSE ---
Sitter in room
[2020-11-13 11:19] LABS: Albumin Level 4.2 g/dL (3.5-5.2); Alkaline Phosphatase 137 IU/L (35-105); Chloride 106 mmol/L (98-107); NT Pro B Type Natriuretic Pept 534 pg/mL (0-125); Potassium 4.1 mmol/L (3.5-5.1); Sodium 142 mmol/L (136-145)
[2020-11-13 11:24] LABS: Acetaminophen < 5.0 ug/mL (10-30)
[2020-11-13 11:35] LABS: Alanine Aminotransferase 14 U/L (0-33); Anion Gap 20.1 (5-19); Aspartate Amino Transferase 23 U/L (0-32); Blood Urea Nitrogen 22 mg/dL (8-23); Calcium 8.7 mg/dL (8.5-10.5); Carbon Dioxide 20 mmol/L (22-29); Creatine Phosphokinase 81 U/L (26-192); Globulin 2.6 g/dL (1.3-4.6); Glucose 71 mg/dL (65-115); Osmolality Calculated 296 mOsm/kg (285-295); Total Bilirubin 0.6 mg/dL (0.15-1.2); Total Protein 6.8 g/dL (6.6-8.7)
[2020-11-13 11:38] LABS: Alcohol Level < 10 mg/dL (0-10); Salicylate < 0.3 mg/dL (3-10)
[2020-11-13] MEDS: metroNIDAZOLE IV 500 MG/100 ML PREMIX 100 MG IV (11:50)
[2020-11-13 12:02] LABS: Reflex Lactate Order REFLEX LACTIC ORDERD
--- NOTE | 2020-11-13 12:36 | P.HP_ITS ---
Providers/Chief Complaint Primary Care Provider: Camila Rao MD Chief Complaint: ams/ slurred speech/ constricted pupils History of Present Illness Shanon Chávez is a 75 year old female who presents to the emergency department with her family with history of not acting normally since 8 PM last night. They report at that time she was having some twitching, and confused. Family reports this is happened before and she has come out of it and it is never lasted this long. They attributed in the past the medicine she takes for anxiety, and pain. They do not know of any intentional overdose. They do report that she had one episode of emesis, last night. She has not had any diarrhea. There is no documented fever. There is no blood in the emesis. She has been complaining of some pain lately, and there is documentation in the emergency to physicians record of left hip pain although I did not get the specific history from the family. She was eating normally and drinking normally up until 8 PM when symptoms occurred. Family did not believe symptom onset was sudden. They report she does not typically have any hypoglycemia although she did have an event perhaps last year. No history of any particular chest pain, shortness of breath, cough, or abdominal pain according to the family. The patient herself is really not able to give a history. She has received some Ativan in the emergency department and from all indications she had delirium upon arrival. In the emergency department she received Rocephin, Flagyl, a dose of D50 although sugar was not documented as significantly low, fluids, and a dose of Ativan. Review of Systems General: Reports: 10 or more systems reviewed and unremarkable except in HPI and below and ROS unobtainable due to mental status (Review of systems is markedly limited as the patient currently has delirium) Const: Denies: fever(s) or chills Eyes: Denies: change in vision ENMT: Reports: other (History of difficulty swallowing) Card: Denies: chest pain Resp: Denies: dyspnea GI: Reports: nausea and vomiting; Denies: abdominal pain : Denies: flank pain Musc: Reports: back pain Neuro: Reports: confusion Psych: Reports: anxiety and depression Endo: Denies: deepening of the voice Cody/Lymph: Denies: easy bruising All/Imm: Denies: urticaria Medications/Allergies Home Medications Medication Instructions Recorded Confirmed Last Taken Type cetirizine 10 mg capsule 10 mg PO DAILY PRN cap 09/07/19 11/13/20 Unknown History lisinopril 10 mg tablet 10 mg PO DAILY 09/07/19 11/13/20 Unknown History aspirin 81 mg tablet,delayed 81 mg PO DAILY 02/25/20 11/13/20 Unknown History release atorvastatin 20 mg tablet 40 mg PO DAILY tab 02/25/20 11/13/20 Unknown History hydroxyzine HCl 25 mg tablet See Rx Instructions PO DAILY PRN 03/09/20 11/13/20 Unknown Rx #90 tab trazodone 50 mg tablet See Rx Instructions PO DAILY PRN 03/09/20 11/13/20 Unknown Rx #60 tab hydrocodone 5 mg-acetaminophen 325 1 tab PO BID PRN 09/12/20 11/13/20 Unknown Hi story mg tablet insulin detemir U-100 100 unit/mL 21 unit SUBCUT BID ml 09/12/20 11/13/20 U nknown History (3 mL) subcutaneous pen Celexa 20 mg PO DAILY 11/13/20 11/13/20 Unknown History Allergies Allergy/AdvReac Type Severity Reaction Status Date / Time Penicillins Allergy Unknown Verified 10/27/20 11:18 PFSH Acute PFSH: Medical History (Updated 11/13/20 @ 12:58 by Anastacio Torres MD) Chronic pain Depression Diabetes Dyslipidemia Insomnia Post-traumatic stress disorder, chronic Surgical History H/O left wrist surgery Status post colonoscopy Family History Mother Diabetes Father No problems noted. Social History Smoking and tobacco status: never smoked Alcohol intake: never Vitals/I&O/Wt Last Vital Signs Temp 98.8 F 11/13/20 09:50 Pulse 84 11/13/20 10:07 Resp 18 11/13/20 10:07 BP 158/78 11/13/20 10:07 Pulse Ox 99 11/13/20 10:07 11/12/20 11/13/20 11/13/20 22:59 06:59 14:59 Intake Total 550 / 550 Balance 550 / 550 Weight last 48 hrs Weight 60.328 kg Physical Exam Narrative: EXAM NARRATIVE: Obese white female, who has diminished responsiveness. She is able to answer a few questions but not accurately. She appears confused. She will awaken for several seconds at a time, and then go back to sleep. Neurologic: No obvious focal deficits. She moves all 4 extremities. She responds when stimulated. HEENT: Pupils equally round. They are reactive to light. Oropharynx is clear. Head was atraumatic and normocephalic. Mucous membranes are moist Neck is supple no lymphadenopathy or thyromegaly Cardiovascular regular rate and rhythm without murmur. No S3 or S4 Lungs are clear no wheezing or crackles Abdomen is soft with positive bowel sounds. No obvious organomegaly was deferred. Sifuentes is noted Extremities show no cyanosis clubbing or edema, cap refill brisk. Left lower extremity appears shortened, with external rotation Skin no obvious rash Data : 11/13/20 10:05 11/13/20 10:05 Other data: ABG demonstrates pH 7.56, PCO2 of 22, PO2 of 84. LFTs are normal with exception of alk phos which is 137 Calcium 8.7 Albumin 4.2 Urinalysis demonstrates 2+ leukocyte Estrace 0-4 white blood cells and 40-55 w hites. There are 5-10 squamous epithelials, and 2+ bacteria. Urine drug screen is positive for opiates, negative for salicylates and ethanol. Rapid Covid is negative Chest x-ray demonstrates hiatal hernia, calcified aortic knob consistent with atherosclerotic disease and no infiltrate EKG demonstrates normal sinus rhythm, normal axis with a rate of 76. No ST or T wave changes noted CT head is negative for any acute findings Lactic acid was 2.9 A&P Assessment and plan (1) Delirium, acute: Acute delirium may be secondary to UTI with systemic effects. This could also be secondary to medications. Doubt CVA. Will provide supportive care, treatment of underlying conditions, and monitor closely. One-on-one will be needed currently secondary to agitation, pulling at IV lines, risk of fall Status: Acute (2) Acute UTI: Urinalysis suggest UTI. Rocephin has been initiated. Urine culture and sensitivity Blood culture Status: Acute (3) Dehydration: Hydration with IV fluids. She has been given 2 boluses in the emergency department as well. Status: Acute (4) Medication adverse effect: She is on quite a bit of antihistamines, as well as serotonin reuptake inhibitors. This may contribute to her twitching and/or acute delirium. We will hold these currently while providing supportive care. Status: Acute (5) Diabetes: Mild sliding scale insulin Status: Acute Additional A&P Information History of left hip pain, and abnormal physical exam. Check x-ray of left hip. Hyperlipidemia. Continue home medications Depression. Hold medication currently, reassess in the morning Chronic pain. Hold medication currently, reassess in the morning History of memory loss, nonacute according to family. She has had a rather recent TSH that was normal. We will check a B12. Full code Lovenox for DVT prophylaxis Attestations Medical Necessity Statement*: Will need greater than 2 midnight stay for evaluation and treatment of acute delirium, acute UTI with systemic effect, l ikely medication effect. Time Spent in Patient Care: Greater than 35 minutes Coding Level of Care Code Acute Probate Clerk for Adonis Buck Diagnoses Delirium, acute R41.0 Acute UTI N39.0 Dehydration E86.0 Medication adverse effect T50.905A Diabetes E11.9
--- NOTE | 2020-11-13 12:39 | XR_ITS ---
WS: [id number] Exam: XR hip LT 2-3V wo/w pel* [id number] Date/Time of Exam: 11/13/2020 12:39 PM Reason For Exam: pain There is an old subcapital fracture of the left hip. There has been partial resorption of the femoral head and neck. There is superior and lateral displacement of the femoral shaft.. Joint effusion is n oted. Healed fracture of the left ischium noted. XR/XR hip LT 2-3V wo/w pel* [id number] IMPRESSION: 1. Displaced subcapital fracture of the left hip probably old. There has been p artial resorption of the femoral head and neck. The proximal femoral shaft is d isplaced superior and lateral.
--- NOTE | 2020-11-13 12:50 | PC.NURSE ---
Difficult to get accurate vital. Pt pulls and tugs, moves arms or legs with blood pressure.
--- NOTE | 2020-11-13 12:52 | PC.NURSE ---
Pt uncooperative, pulling at tubes, holding on to rails and beating them.
[2020-11-13 13:01] LABS: Troponin 5 2HR 31.87 ng/L (0-10); Troponin 5 2HR Delta -1.13 ABS# (0-10)
--- NOTE | 2020-11-13 13:10 | PC.NURSE ---
Report taken from ER nurse. Informed that patient pulled IV access out from her arm and the only access that could be obtained was in her right ankle. Per ED nurse Dr. Torres was present at the time of IV placement and he was okay with it being in her ankle. Dr. Torres clarified this via voalte messaging with this nurse.
[2020-11-13 13:29] LABS: Vitamin B12 379 pg/mL (232-1245)
[2020-11-13] MEDS: morphine 4 mg/mL SDV 1 mL IVP (13:36)
--- NOTE | 2020-11-13 13:46 | PC.NURSE ---
pt report called to Shannan BRADSHAW in SBAR format.
[2020-11-13 13:50] LABS: Lactic Acid level (Lactate) 1.9 mmol/L (0.5-2.2)
[2020-11-13] MEDS: enoxaparin 40 mg/0.4 mL Syringe SUBCUT (16:00)
[2020-11-13] MEDS: sodium chloride 0.9% 1,000 ML 100 ML IV (16:03)
--- NOTE | 2020-11-13 16:50 | PM.CONSULT ---
Providers/Reason For Consult Consulting Physican/Specialty*: Godwin Brennan MD; orthopedic surgery Reason for Consult*: Left hip fracture Attending Physician: Anastacio Torres MD Primary Care Provider: Camila Rao MD History of Present Illness History of Present Illness Shanon Chávez is a 75 year old female who I am asked to see for a left hip fracture. Apparently was admitted to the emergency room for a confusion. While in the ER she complained of left hip pain. I have no specific history. The patient is confused and cannot contribute anything to her care Meds/Allergies Home Medications and Allergies Home Medications Medication Instructions Recorded Confirmed Last Taken Type cetirizine 10 mg capsule 10 mg PO DAILY PRN cap 09/07/19 11/13/20 Unknown History lisinopril 10 mg tablet 10 mg PO DAILY 09/07/19 11/13/20 Unknown History aspirin 81 mg tablet,delayed 81 mg PO DAILY 02/25/20 11/13/20 Unknown History release atorvastatin 20 mg tablet 40 mg PO DAILY tab 02/25/20 11/13/20 Unknown History hydroxyzine HCl 25 mg tablet See Rx Instructions PO DAILY PRN 03/09/20 11/13/20 Unknown Rx #90 tab trazodone 50 mg tablet See Rx Instructions PO DAILY PRN 03/09/20 11/13/20 Unknown Rx #60 tab hydrocodone 5 mg-acetaminophen 325 1 tab PO BID PRN 09/12/20 11/13/20 Unknown History mg tablet insulin detemir U-100 100 unit/mL 21 unit SUBCUT BID ml 09/12/20 11/13/20 Unknown History (3 mL) subcutaneous pen Celexa 20 mg PO DAILY 11/13/20 11/13/20 Unknown History Allergies Allergy/AdvReac Type Severity Reaction Status Date / Time Penicillins Allergy Unknown Verified 10/27/20 11:18 Current Medications Current Medications Generic Name Dose Route Start Last Admin Trade Name Freq PRN Reason Stop Dose Admin Enoxaparin Sodium 40 mg 11/13/20 16:00 11/13/20 16:00 Enoxaparin 40 Mg/0.4 Ml Syringe SUBCUT 40 mg Q24H DIANELYS Administration Sodium Chloride 1,000 mls @ 100 mls/hr 11/13/20 14:07 11/13/20 16:03 Sodium Chloride 0.9% IV 100 mls/hr .Q10H DIANELYS Administration PFSH Acute PFSH: Medical History (Updated 11/13/20 @ 16:56 by Godwin Brennan MD) Chronic pain Depression Diabetes Dyslipidemia Insomnia Post-traumatic stress disorder, chronic Surgical History H/O left wrist surgery Status post colonoscopy Family History Mother Diabetes Father No problems noted. Social History Smoking and tobacco status: never smoked Alcohol intake: never Vitals/I&O/Wt Last Vital Signs Temp 98.0 F 11/13/20 16:00 Pulse 89 11/13/20 16:00 Resp 18 11/13/20 16:00 BP 153/54 11/13/20 16:00 Pulse Ox 95 11/13/20 16:00 11/13/20 11/13/20 11/13/20 06:59 14:59 22:59 Intake Total 1150 / 1150 Balance 1150 / 1150 Weight last 48 hrs Weight 133 lb Physical Exam Narrative: EXAM NARRATIVE: The patient is curled up in a decubital position on her left side. She does appear to have some clear shortening of the left hip compared to the right and there may be some pain with motion of the hip. Data Micro: Micro: Microbiology 11/13/20 13:13 Blood Culture - Pr eliminary Blood SPECIMEN [facility] JERONIMO 11/13/20 13:16 Blood Culture - Pr eliminary Blood SPECIMEN [facility] Imaging^: Xray Ortho: Radiologist's impression: I reviewed radiographs of the left hip obtained today. The patient has a nonunion of the left femoral neck. There is substantial migration of the shaft relative to the acetabulum and resorption of the femoral head. I found old radiographs dated 03/16/2020 showing fractures left superior and inferior pubic rami as well as a minimally displaced femoral neck fracture. 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 It would appear the fracture happened at least in February of the last year. Patient is delirious and I really cannot have any quality discussion dictated history or treatment goals. She alleges he has been ambulatory and based on that I am not certain that surgical stabilization would be of significant benefit. I am suggesting at this point that they optimize her medical status. 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
[2020-11-13 17:20] LABS: Glucose Point of Care 121 mg/dL (70-110)
[2020-11-13 20:24] LABS: Glucose Point of Care 175 mg/dL (70-110)
[2020-11-14] MEDS: sodium chloride 0.9% 1,000 ML 100 ML IV (02:03)
[2020-11-14 04:23] VITALS: BP 100/58; PULSE 78; RESP 17; TEMP 36.7; O2SAT 95
[2020-11-14 06:02] LABS: Basophils # 0.1 10^3/uL (0.0-0.1); Basophils % 0.7 %; Eosinophils # 0.1 10^3/uL (0.0-0.8); Eosinophils % 0.8 %; Hematocrit 34.1 % (37.0-47.0); Hemoglobin 10.6 g/dL (11.5-15.3); Lymphocytes # 3.5 10^3/uL (0.8-4.8); Lymphocytes % 28.5 %; Mean Corpuscular HGB Conc 31.1 g/dL (30.0-36.0); Mean Corpuscular Hemoglobin 29.5 pg (28.0-34.0); Mean Platelet Volume 13.2 fL (7.4-10.4); Monocytes # 1.2 10^3/uL (0.2-0.9); Monocytes % 9.9 %; Neutrophils # 7.22 10^3/uL (1.8-7.7); Neutrophils % 59.7 %; Nucleated Red Blood Cells % 0 %; Platelet Count 209 10^3/cmm (130-400); Red Blood Count 3.59 10^6/uL (4.1-5.3); Red Cell Distribution Width 13.7 % (12.1-15.1); White Blood Count 12.1 10^3/uL (4.0-10.0)
[2020-11-14 06:29] LABS: Alanine Aminotransferase 11 U/L (0-33); Alkaline Phosphatase 109 IU/L (35-105); Anion Gap 14.9 (5-19); Aspartate Amino Transferase 26 U/L (0-32); Blood Urea Nitrogen 16 mg/dL (8-23); Calcium 7.8 mg/dL (8.5-10.5); Carbon Dioxide 20 mmol/L (22-29); Chloride 110 mmol/L (98-107); Globulin 2.3 g/dL (1.3-4.6); Glucose 92 mg/dL (65-115); Osmolality Calculated 293 mOsm/kg (285-295); Potassium 3.9 mmol/L (3.5-5.1); Sodium 141 mmol/L (136-145); Total Bilirubin 0.6 mg/dL (0.15-1.2); Total Protein 5.3 g/dL (6.6-8.7)
[2020-11-14 06:39] LABS: Glucose Point of Care 93 mg/dL (70-110)
--- NOTE | 2020-11-14 07:47 | PM.PN ---
Subjective Subjective: Interval history: Shanon reports she feels better today. She is alert, and appears to be oriented. She denies any specific complaints today. Medications: Reviewed: Yes Vitals/I&O/Wt Last Vital Signs Temp 98.0 F 11/14/20 04:23 Pulse 78 11/14/20 04:23 Resp 17 11/14/20 04:23 BP 100/58 11/14/20 04:23 Pulse Ox 95 11/14/20 04:23 11/13/20 11/14/20 11/14/20 22:59 06:59 14:59 Intake Total 120 / 1270 1000 / 2270 Output Total 400 / 400 300 / 700 Balance -280 / 870 700 / 1570 Weight last 48 hrs Weight 60.328 kg Physical Exam Narrative: EXAM NARRATIVE: General exam is an alert, oriented female in no distress Cardiovascular regular rate and rhythm without murmur. No S3 or S4 Lungs are clear no wheezing or crackles Abdomen is soft with positive bowel sounds. No obvious organomegaly Sifuentes is noted Extremities show no cyanosis clubbing or edema, cap refill brisk. Left lower extremity appears shortened, with external rotation Data : 11/14/20 05:25 11/14/20 05:25 Micro: Microbiology 11/13/20 13:13 Blood Culture - Preliminary Blood SPECIMEN COLLECTED 11/13/20 13:16 Blood Culture - Preliminary Blood SPECIMEN COLLECTED A&P Assessment and plan (1) Delirium, acute: Acute delirium may be secondary to UTI with systemic effects. This could also be secondary to medications. Doubt CVA. Will provide supportive care, treatment of underlying conditions, and monitor closely. Today, 11/14 patient is alert and oriented. She is no longer nauseated. Status: Acute (2) Acute UTI: Urinalysis suggest UTI. Rocephin has been initiated. UTI likely complicated secondary to systemic effects and acute encephalopathy manifested with acute delirium. White blood cell count improving Await urine culture, blood culture Secondary to severity of illness and mental status change further monitoring is needed prior to discharge. Status: Acute (3) Dehydration: Hydration improved. Reduce fluids to 50 cc an hour Status: Acute (4) Medication adverse effect: She is on quite a bit of antihistamines, as well as serotonin reuptake inhibitors. This may contribute to her twitching and/or acute delirium. These medications were held. The patient no longer has any twitching and is alert. Will reinstitute Celexa alone. Try to avoid hydroxyzine. Status: Acute (5) Diabetes: Mild sliding scale insulin. No evidence of hypoglycemia Status: Acute Additional A&P Information History of left hip pain, and abnormal physical exam. 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 Orthopedics consulted. Will need outpatient follow-up. No weightbearing restrictions currently. Hyperlipidemia. Continue home medications Depression. Restart Celexa History of hypertension. Blood pressure borderline low. Hold lisinopril today. Chronic pain. Hydrocodone as needed History of memory loss, nonacute according to family. She has had a rather recent TSH that was normal. B12 was normal Full code Lovenox for DVT prophylaxis Attestations Medical Necessity Statement*: Needs continued hospitalization for IV antibiotics secondary to complicated UTI with acute delirium/encephalopathy. Coding Level of Care Code Acute Kennel Manager Dog Track for Adonis Buck Diagnoses Delirium, acute R41.0 Acute UTI N39.0 Dehydration E86.0 Medication adverse effect T50.905A Diabetes E11.9
[2020-11-14 07:56] VITALS: PULSE 80; O2SAT 94
[2020-11-14 07:58] VITALS: BP 111/68; PULSE 80; RESP 16; TEMP 37.1; O2SAT 94
[2020-11-14] MEDS: aspirin 81 mg EC Tablet PO (08:27)
[2020-11-14] MEDS: atorvastatin 40 mg Tablet PO (08:27)
--- NOTE | 2020-11-14 10:42 | PC.CHAP ---
Pastoral Care Encounter/Spiritual Assessment Type of Contact [] Declined robotic toy inventor visit [] Patient/Family/Request visit [] Outpatient visit [] Follow-up visit [] Physician referral [] Code/Alert [xx] Routine visit [] Staff referral [] Actively dying [x] Patient sleeping [] Family support [] [] Out of room [] Palliative care [] [] Receiving care in room [] Pre-surgical visit [] Trauma [] Long length of stay [] ICU visit [] Other: Relational/Emotional Strength [] Patient feels connected with others/family/visitors/staff [] Distress [] Loneliness/isolation [] Abandonment Spirituality of Patient [] Person of Patricia [] Attends Religious of their Patricia [] Believes in Prayer [] Reads Bible or Buddhist materials [] There are Spiritual issues to be addressed Rn Radiology Interventions [] Prayer [] Active listening [] Non-anxious presence [] Spiritual/emotional support [] Crisis/trauma care [] Spiritual counseling [] Bereavement support [] Provided bereavement packet [] Provided Bible/devotional materials [] Provided toy/stuffed animal, coloring book to patient or family member [] Provided Communion [] Anointing/[place] [] Salvation [] Completed spiritual assessment [] Other: Impact on Illness or Injury [] Angry [] Fearful [] Anxious [] Often cries [] Exhaustion [] Unable to work [] Unable to attend sikh [] Unable to walk/stand [] Unable to read [] Unable to drive [] Unable to eat/drink [] Unable to sleep [] Unable to be with family [] Patient intubated [] Other: Summary Time spent with patient
[2020-11-14 11:36] VITALS: BP 129/83; PULSE 77; RESP 16; TEMP 37.2; O2SAT 95
[2020-11-14 11:39] LABS: Glucose Point of Care 208 mg/dL (70-110)
[2020-11-14] MEDS: cefTRIAXone 1,000 MG in sodium chloride 0.9% (plus) 50 ML 100 MG IV (12:40)
[2020-11-14] MEDS: sodium chloride 0.9% 1,000 ML 50 ML IV (15:31)
[2020-11-14] MEDS: enoxaparin 40 mg/0.4 mL Syringe SUBCUT (15:32)
[2020-11-14 16:00] VITALS: BP 138/83; PULSE 77; RESP 18; TEMP 36.6; O2SAT 96
[2020-11-14 16:59] LABS: Glucose Point of Care 187 mg/dL (70-110)
[2020-11-14 19:27] VITALS: BP 124/75; PULSE 74; RESP 18; TEMP 36.6; O2SAT 94
[2020-11-14 20:12] LABS: Glucose Point of Care 194 mg/dL (70-110)
[2020-11-15] VITALS: BP 120/76; PULSE 77; RESP 18; TEMP 36.5; O2SAT 95
[2020-11-15 04:01] VITALS: BP 135/73; PULSE 73; RESP 18; TEMP 36.6; O2SAT 96
--- NOTE | 2020-11-15 05:17 | PC.NURSE ---
SHIFT SUMMARY Patient rested well throughout the night. PAtient had no complaints of pain during this shift.
[2020-11-15 06:22] VITALS: PULSE 75; O2SAT 96
[2020-11-15 06:34] LABS: Glucose Point of Care 313 mg/dL (70-110)
[2020-11-15 06:35] LABS: Basophils # 0.1 10^3/uL (0.0-0.1); Basophils % 0.9 %; Eosinophils # 0.3 10^3/uL (0.0-0.8); Hematocrit 37.1 % (37.0-47.0); Hemoglobin 11.4 g/dL (11.5-15.3); Lymphocytes # 2.5 10^3/uL (0.8-4.8); Lymphocytes % 26.1 %; Mean Corpuscular HGB Conc 30.7 g/dL (30.0-36.0); Mean Corpuscular Hemoglobin 29.3 pg (28.0-34.0); Mean Corpuscular Volume 95.4 fL (81-99); Mean Platelet Volume 12.7 fL (7.4-10.4); Monocytes # 1.1 10^3/uL (0.2-0.9); Monocytes % 10.8 %; Neutrophils # 5.71 10^3/uL (1.8-7.7); Neutrophils % 58.9 %; Nucleated Red Blood Cells % 0 %; Platelet Count 216 10^3/cmm (130-400); Red Blood Count 3.89 10^6/uL (4.1-5.3); Red Cell Distribution Width 13.6 % (12.1-15.1); White Blood Count 9.7 10^3/uL (4.0-10.0)
[2020-11-15 06:53] LABS: Blood Urea Nitrogen 15 mg/dL (8-23); Calcium 7.7 mg/dL (8.5-10.5); Carbon Dioxide 22 mmol/L (22-29); Chloride 109 mmol/L (98-107); Glucose 330 mg/dL (65-115); Osmolality Calculated 300 mOsm/kg (285-295); Sodium 138 mmol/L (136-145)
[2020-11-15 07:47] VITALS: BP 144/73; PULSE 68; RESP 18; TEMP 36.7; O2SAT 97
[2020-11-15] MEDS: aspirin 81 mg EC Tablet PO (09:00)
[2020-11-15] MEDS: atorvastatin 40 mg Tablet PO (09:00)
[2020-11-15] MEDS: cefTRIAXone 1,000 MG in sodium chloride 0.9% (plus) 50 ML 100 MG IV (10:26)
--- NOTE | 2020-11-15 10:53 | P.DS_ITS ---
Discharge Providers Date of Admission: 11/13/20 12:38 Date of Discharge: November 15, 2020 Attending Provider at Admission: Anastacio Torres MD Attending Provider at Discharge: Anastacio Torres MD Primary Care Provider: Camila Rao MD Diagnoses at Discharge Discharge Diagnosis (1) Delirium, acute: Status: Acute (2) Acute UTI: Status: Acute (3) Dehydration: Status: Acute (4) Medication adverse effect: Status: Acute (5) Diabetes: Status: Acute Reason for Visit Reason for Visit: ams/ slurred speech/ constricted pupils Hospital Course Hospital Course Shanon is a 75-year-old white female who presented to the hospital with altered mental status, consistent with acute encephalopathy. UTI was found, although there is some concern the patient had been taking extra doses of pain or anxiety medicine. Sedative medicine was held, and UTI treated. White blood cell count was markedly elevated on admission, at approximately 17,000. The following the day the patient was responding much more appropriately. She had a low-grade temperature elevation of 99. White blood cell count had come down some to 12.1. It was thought at that time she was not quite back to baseline, and further monitoring would be needed. She was monitored until November 15 when white blood cell count was normal. Mental status was at baseline. Urine culture had come back as group B beta strep. Blood cultures were negative at a 48-hour read. It was then safe for the patient to be discharged home with close follow-up with her primary care provider. Other studies done during her hospital stay included a CT of head which showed no acute changes. She had an x-ray of her left hip secondary to pain and it was found she had a chronic fracture dislocation. Orthopedics saw her and recommended outpatient follow-up, with no weightbearing restrictions. Physical Exam Narrative: EXAM NARRATIVE: General exam no apparent distress Cardiovascular regular in rhythm without murmur Lungs clear Abdomen is soft with positive bowel sounds, obese Extremities no cyanosis clubbing or edema, left lower extremity shortened and externally rotated. Discharge Data Data Completed and Pending: Completed Studies During Hospitalization Category Date Time Status CT head wo con* [id number] [id number] Stat Cat Scan 11/13/20 09:50 Completed XR chest 1V kaden ble [id number] Stat Exams 11/13/20 09:50 Completed XR hip LT 2-3V wo /w pel* [id number] Urge nt Exams 11/13/20 12:39 Completed Pending at discharge Category Date Time Status Blood Culture Sta t Lab 11/13/20 13:13 Results Labs from last 24 hours 11/15/20 11/15/20 11/15/20 06:25 06:17 06:17 WBC 9.7 RBC 3.89 L Hgb 11.4 L Hct 37.1 MCV 95.4 MCH 29.3 MCHC 30.7 RDW 13.6 Plt Count 216 MPV 12.7 H Neut % (Auto) 58.9 Lymph % (Auto) 26.1 [place] % (Auto) 10.8 Eos % (Auto) 3.0 Baso % (Auto) 0.9 Neut # (Auto) 5.71 Lymph # (Auto) 2.5 [place] # (Auto) 1.1 H Eos # (Auto) 0.3 Baso # (Auto) 0.1 Nucleated RBC % (a uto) 0 Nucleated RBCs # 0.0 Sodium 138 Potassium 4.0 Chloride 109 H Carbon Dioxide 22 Anion Gap 11.0 BUN 15 Creatinine 0.9 GFR Calculation Not Reportable Glucose 330 H POC Glucose 313 H Calculated Osmolal ity 300 H Calcium 7.7 L 11/14/20 11/14/20 11/14/20 20:08 16:51 11:33 WBC RBC Hgb Hct MCV MCH MCHC RDW Plt Count MPV Neut % (Auto) Lymph % (Auto) [place] % (Auto) Eos % (Auto) Baso % (Auto) Neut # (Auto) Lymph # (Auto) [place] # (Auto) Eos # (Auto) Baso # (Auto) Nucleated RBC % (a uto) Nucleated RBCs # Sodium Potassium Chloride Carbon Dioxide Anion Gap BUN Creatinine GFR Calculation Glucose POC Glucose 194 H 187 H 208 H Calculated Osmolal ity Calcium Vitals: Last Vital Signs Temp 98.1 F 11/15/20 07:47 Pulse 68 11/15/20 07:47 Resp 18 11/15/20 07:47 BP 144/73 11/15/20 07:47 Pulse Ox 97 11/15/20 07:47 Discharge Plan Discharge Patient Disposition: Home Condition: Stable Prescriptions: New cefuroxime axetil 250 mg tablet 250 mg PO BID 5 Days Qty: 10 RF: 0 Continued lisinopril 10 mg tablet 10 mg PO DAILY RF: 0 atorvastatin 20 mg tablet 40 mg PO DAILY RF: 0 aspirin 81 mg tablet,delayed release (DR/EC) 81 mg PO DAILY RF: 0 insulin detemir U-100 100 unit/mL (3 mL) insulin pen 21 unit SUBCUT BID RF: 0 hydrocodone-acetaminophen 5-325 mg tablet 1 tab PO BID PRN (Reason: Pain) RF: 0 Celexa 20 mg tablet 20 mg PO DAILY RF: 0 Discontinued Zyrtec 10 mg capsule 10 mg PO DAILY PRN (Reason: Allergy Symptoms) RF: 0 trazodone 50 mg tablet See Rx Instructions PO DAILY PRN (Reason: sleep) Qty: 60 RF: 5 hydroxyzine HCl 25 mg tablet See Rx Instructions PO DAILY PRN (Reason: sleep) Qty: 90 RF: 5 Discharge Orders: Discharge Order (Routine); Ordered 11/15/20 Ordered By: Anastacio Torres Referrals: Camila Rao MD [Primary Care Provider] - 4-7 days Godwin Brennan MD [Physician] - 2 weeks Discharge Diet: Cardiac and Diabetic Discharge Activity: Increase activity as tolerated Patient Instructions: Opioid Safety Activity Restrictions/Additional Instructions: Take all medicine as prescribed. Note that your hydroxyzine has been discontinued. Follow-up with Dr. Brennan in 2 weeks Discharge Attestations Time Spent in Discharge Care*: greater than 30 min Quality Metrics Clinical Quality Measures During this hospital stay, did patient experience: None Coding Level of Care Code Acute g FW DC note Diagnoses Delirium, acute R41.0 Acute UTI N39.0 Dehydration E86.0 Medication adverse effect T50.905A Diabetes E11.9
[2020-11-15 11:06] LABS: Glucose Point of Care 162 mg/dL (70-110)
[2020-11-15 11:08] VITALS: BP 122/73; PULSE 70; RESP 15; TEMP 36.7; O2SAT 97
[2020-11-15 15:10] VITALS: BP 122/73; PULSE 70; RESP 15; TEMP 36.7; O2SAT 97
== END 2020-11-15 14:50 | disposition home or self-care (01) | DRG 689 ==
LOC: ER 11:53 → MEDSURG 13:21
PROVIDERS: Admitting Provider Internal Medicine; Emergency Provider Emergency Medicine; PCP Internal Medicine; Visit Provider Internal Medicine
DX: N39.0 Urinary tract infection, site not specified (principal); G92 Toxic encephalopathy; S72.002K Fracture of unspecified part of neck of left femur, subsequent encounter for closed fracture with nonunion; X58.XXXD Exposure to other specified factors, subsequent encounter; G89.29 Other chronic pain; F32.9 Major depressive disorder, single episode, unspecified; E11.9 Type 2 diabetes mellitus without complications; E78.5 Hyperlipidemia, unspecified; G47.00 Insomnia, unspecified; F43.12 Post-traumatic stress disorder, chronic; E86.0 Dehydration; T45.0X5A Adverse effect of antiallergic and antiemetic drugs, initial encounter; Z79.82 Long term (current) use of aspirin; Z79.891 Long term (current) use of opiate analgesic; Z79.4 Long term (current) use of insulin
CPT/HCPCS: 36415; 36416; 36600; 70450; 71045; 73502; 80048; 80051; 80053; 80306; 80307; 81001; 82140; 82330; 82550; 82607; 82805; 82962; 83605; 83880; 84484; 85025; 85610; 85730; 86850; 86900; 87040; 87086; 87426; 87635; 93005; 96365; 96367; 96372; 96375; 96376; 97116; 97161; 97530; 99285; J0696; J1650; J1815; J2060; J2270; J7030; J7040; S0030

== ENCOUNTER → 2020-12-26 11:48 | Outpatient (BNVA) | payer MEDICARE, SELFPAY | PROVIDERS: PCP Internal Medicine; Visit Provider Orthopaedic Surgery | DX: Z01.812 Encounter for preprocedural laboratory examination (principal); Z20.822 Contact with and (suspected) exposure to COVID-19 | CPT/HCPCS: 87635 ==

== ENCOUNTER 2021-01-01 20:51 | Observation (INO) | payer MEDICARE, SELFPAY ==
[2020-12-22 11:35] VITALS: BMI 19.8
--- NOTE | 2020-12-22 12:26 | ANES.PREANE2 ---
Pre-Anesthetic Assessment Pre-Anesthetic Assessment: Height/Weight: Height 1.73 m Weight 58.967 kg Proposed Procedure: Operation Date: 01/01/21 12:00 Proposed Procedures p left Hemiarthroplasty Hip 71642 s72.002k(Left) - Godwin Brennan MD Was Beta [place] taken within 24 hours: N/A Was Clonidine taken within 24 hours: N/A Social: Social History: No alcohol and No tobacco Exam: Pre-Anes Outpt Exam: alert, oriented x 3, clear to auscultation bilaterally and regular rate & rhythm Airway: Submandibular: WNL Cervical ROM: WNL MP: 2 Dentition: Full CV/HEM: CV/HEM: HTN Metabolic: Metabolic: DM and Hyperlipidemia Neuropsych: Comments: PTSD Anesthetic Plan: ASA status: 3 Anesthesia: General Risk of > 500 ml blood loss (7ml/kg in children): No PFSH Anesthesia PFSH: Medical History Chronic pain Depression Diabetes Dyslipidemia Insomnia Medication adverse effect Post-traumatic stress disorder, chronic Surgical History H/O left wrist surgery Status post colonoscopy Family History Mother Diabetes Father No problems noted. Social History Smoking and tobacco status: never smoked Alcohol intake: never Data Anesthesia Cardiac Studies: No Data to Display
[2021-01-01] VITALS (15 sets, daily range): BP systolic 127–179; BP diastolic 62–114; PULSE 74–92; RESP 12–24; TEMP 36.3–36.8; O2SAT 92–100
[2021-01-01] MEDS: CELEcoxib 200 mg Capsule 400 MG PO (14:31)
[2021-01-01] MEDS: sodium chloride 0.9% 1,000 ML 30 ML IV (14:31)
[2021-01-01] MEDS: oxyCODONE 20 mg ER (12 HR) Tablet PO (14:35)
[2021-01-01] MEDS: gabapentin 300 mg Capsule PO (14:39)
[2021-01-01 14:44] LABS: Glucose Point of Care 291 mg/dL (70-110)
--- NOTE | 2021-01-01 15:06 | P.ANESUD_ITS ---
Pre-Anesthetic Update Pre-Anesthetic Assessment: Date of Surgery/Procedure: 01/01/21 Preop Rubi gnosis: Nonunion left femoral neck Proposed Procedure: Operation Date: 01/01/21 12:00 Proposed Procedures p left Hemiarthroplasty Hip 37930 s72.002k(Left) - Godwin Brennan MD Any changes to Pre-Anesthetic Assessment?: No Last Intake: Intake Last Liquid Date 12/31/20 Last Liquid Time 23:00 Last Solid Date 12/31/20 Last Solid Time 21:50 Labs Last 48hrs: Laboratory Results - last 48 hr 01/01/21 14:28 POC Glucose 291 H Vitals: Temperature 98.3 F 01/01/21 13:45 Temperature Source Temporal Artery S can 01/01/21 13:45 Pulse Rate 92 01/01/21 13:45 Respiratory Rate 16 01/01/21 13:45 Blood Pressure 179/114 01/01/21 13:45 Blood Pressure Felisha n 135 01/01/21 13:45 Pulse Oximetry 98 01/01/21 13:45 Oxygen Delivery Me thod 01/01/21 13:45 Exam: Pre-Anes Outpt Exam: alert, oriented x 3, clear to auscultation bilaterally and regular rate & rhythm Other Pertinent Information: Other Pertinent Information: SAB Cardiac Studies: No Data to Display
[2021-01-01] MEDS: insulin regular-human 100 units/1 mL 10 UNIT IVP (15:09)
[2021-01-01 15:51] LABS: Glucose Point of Care 251 mg/dL (70-110)
--- NOTE | 2021-01-01 16:36 | W.PM.OPSFHP ---
Same Day Surgery H&P Indication for Procedure/HPI DATE OF PROCEDURE: January 01, 2021 CHIEF COMPLAINT/INDICATIONFOR SURGICAL PROCEDURE: The patient is a 75-year-old year ago with resulting hip pain. Radiographs in our emergency room earlier this year revealed displaced she was managed in a pain clinic and ultimately was seen in our emergency room for altered mental status. 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 PLANNED PROCEDRUE: Operation Date: 01/01/21 12:00 Proposed Procedures p left Hemiarthroplasty Hip 66170 s72.002k(Left) - Godwin Brennan MD Medications/Allergies* Home Medications Medication Instructions Recorded Confirmed Type lisinopril 10 mg tablet 10 mg PO DAILY 09/07/19 01/01/21 History aspirin 81 mg tablet,delayed 81 mg PO DAILY 02/25/20 01/01/21 History release atorvastatin 20 mg tablet 40 mg PO DAILY tab 02/25/20 01/01/21 History insulin detemir U-100 100 unit/mL 19 unit SUBCUT BID ml 09/12/20 01/01/21 History (3 mL) subcutaneous pen Allergies/Adverse Reactions Allergy/AdvReac Type Severity Reaction Status Date / Time Penicillins Allergy Unknown Verified 12/22/20 11:33 bandaid Allergy ALGY-Hives Uncoded 01/01/21 08:58 Current Medications: Generic Name Dose Route Start Last Admin Trade Name Freq PRN Reason Stop Dose Admin Sodium Chloride 1,000 mls @ 30 mls/hr 01/01/21 13:45 01/01/21 14:31 Sodium Chloride 0.9% IV 01/02/21 13:44 30 mls/hr .Q24H DIANELYS Administration Pertinent History/Comorbid Conditions* Medical History (Updated 11/16/20 @ 00:01 by ) Chronic pain Depression Diabetes Dyslipidemia Insomnia Medication adverse effect Post-traumatic stress disorder, chronic Surgical History (Updated 10/27/20 @ 11:50 by Anibal Valdes MD) H/O left wrist surgery Status post colonoscopy Family History (Updated 02/25/20 @ 13:44 by Ledy Oconnor LPN) Father Mother Diabetes Mother Social History Smoking and tobacco status: never smoked Alcohol intake: never Pertinent Exam Findings alert, oriented x 3, clear to auscultation bilaterally, regular rate & rhythm and operative site marked Recommendations Surgery/Procedure today Coding Level of Care Code Acute Engagement Engineer for g Heber
--- NOTE | 2021-01-01 19:23 | PM.OP ---
Operative Report Date of procedure: January 01, 2021 Pre-op Diagnosis: Nonunion left femoral neck Post-op diagnosis: same Post-op Findings: Same Procedure Done: Left bipolar hip arthroplasty Pathology: none sent Surgeon: Godwin Brennan Anesthesia: General Estimated blood loss (mL): 50 Findings: The patient had a nonunion of the left femoral neck with proximal migration of the shaft relative to the hip Condition: stable Disposition: PACU Procedure: The patient was taken to the operating room and a spinal l anesthesia was provided by the anesthesia service. It was later converted to laryngeal mask airway with the patient continued to experience pain. They were given 2 g of Ancef. and positioned in the lateral position with the hip exposed. A 10 cm long incision was made over the greater trochanter with a scalpel blade. Dissection was carried down through the fascia sunshine to the greater trochanter. The anterior two thirds of gluteus medius and minimus were elevated off the greater trochanter with electrocautery. The capsule was divided T like fashion. The nonunion was identified. The hip was externally rotated and the neck brought up into the wound. An oscillating saw was really used to resect the neck just above the level of the lesser trochanter. A slightly greater resection was done to facilitate reduction of the hip later. The femoral head was removed and the acetabulumt sized to a 44 mm bipolar head. Sequential reaming and broaching of the canal was accomplished up to a size 6. A size 4 Magdi cemeted stem was submitted into place. A trial reduction with a -3 mm neck provided excellent stability. The final head and neck were placed and the hip reduced. The anterior capsule were reapproximated with 1 Ethibond. The gluteus medius and minimus were repaired through the greater trochanter with 5 Ethibond and reinforced with 1 Ethibond. The fascia sunshine was closed with 1 Stratafix. The subcutaneous tissues were closed with 2-0 Stratafixl. The skin was closed with a running 3-0 Stratafix. Sterile dressings were applied. The patient was placed in abduction pillow and taken recovery room in stable condition. Melita 1) Magdi plus 127 degree collored stem, size 4 2) 44 bipolar femoral head 3) 28mm/-3 neck length femoral head
--- NOTE | 2021-01-01 19:31 | XRR_ITS ---
PROCEDURE INFORMATION: Exam: XR Left Hip Exam date and time: 01/01/2021 7:31 PM Age: 75 years old Clinical indication: Condition or disease; Joint replacement status; Left; Prior surgery; Surgery date: Post-operative (0-2 days); Surgery type: Post op lt total hip; Additional info: Total hip arthroplasty, low ap pelvis TECHNIQUE: Imaging protocol: XR Left hip. Views: 1 view hip with pelvis when performed. COMPARISON: CR XR hip LT 2-3V wo/w pel* [id number] 11/13/2020 12:38 PM FINDINGS: Bones/joints: The patient is status post left total hip arthroplasty. No evidence of hardware related complication. No fracture or dislocation. Expected postoperative changes of the adjacent soft tissues is noted. Soft tissues: See Bones/joints finding. XR/XR hip LT 1V wo/w pel [id number] IMPRESSION: Status post left total hip arthroplasty, without evidence of hardware related complication.
--- NOTE | 2021-01-01 20:08 | PC.NURSE ---
FIRST ICE APPLIED TO L HIP, ABDUCTION PILLOW IN PLACE. DRESSING C/D/I, PEDAL PULSE STRONG. RESPONDS TO VOICE AND TOUCH, DENIES PAIN. VSS. REPORT CALLED TO FLOOR.
--- NOTE | 2021-01-01 20:12 | ANE.PACU2 ---
Inpatient post-anesthesia follow up: Airway intact: Yes Vital signs: Temperature 97.8 F Pulse Rate 79 Respiratory Rate 24 Blood Pressure 141/80 Pulse Oximetry 98 Oxygen Delivery Me thod Nasal Cannula Oxygen Flow Rate 2 Fraction of Inspir ed Oxygen Hydration adequate: Yes Nausea and vomiting: No Pain level: 1 Mental status: Baseline
[2021-01-01 21:34] LABS: Glucose Point of Care 133 mg/dL (70-110)
[2021-01-01] MEDS: CELEcoxib 200 mg Capsule PO (23:39)
[2021-01-01] MEDS: sodium chloride 0.9% 1,000 ML 75 ML IV (23:39)
[2021-01-01] MEDS: oxyCODONE 5 mg IR Tab/Cap PO (23:39)
[2021-01-01] MEDS: acetaminophen 500 mg Tablet 1000 MG PO (23:39)
[2021-01-02] VITALS (8 sets, daily range): BP systolic 106–135; BP diastolic 65–72; PULSE 81–93; RESP 14–18; TEMP 36.3–36.7; O2SAT 92–98
[2021-01-02] MEDS: morphine 4 mg/mL SDV 1 mL 2 MG IVP (01:32)
[2021-01-02] MEDS: oxyCODONE 5 mg IR Tab/Cap PO ×2 (05:45→21:51)
[2021-01-02] MEDS: acetaminophen 500 mg Tablet 1000 MG PO ×3 (05:45→21:51)
[2021-01-02 06:26] LABS: Glucose Point of Care 384 mg/dL (70-110)
--- NOTE | 2021-01-02 07:44 | P.PN_ITS ---
Subjective Subjective: Interval history: Patient complains of some left hip pain. Tolerating p.o. intake. Passing urine. Vitals/I&O/Wt Last Vital Signs Temp 97.7 F 01/02/21 03:25 Pulse 81 01/02/21 03:25 Resp 14 01/02/21 05:45 BP 135/67 01/02/21 03:25 Pulse Ox 94 01/02/21 05:45 01/01/21 01/02/21 01/02/21 22:59 06:59 14:59 Intake Total 100 / 100 100 / 200 Output Total 50 / 50 Balance 50 / 50 100 / 150 Physical Exam Narrative: EXAM NARRATIVE: Left hip dressing clean and dry. Expected left thigh left hip dressing clean and dry. Minimal swelling A&P Assessment and plan (1) Closed displaced fracture of left femoral neck with nonunion: Status: Resolved (2) Status post hip hemiarthroplasty: Patient doing well medically she had some instability under anesthesia in the left hip with the hip and abduction. We will continue an abduction pillow except when up with therapy for 1 month to allow time for soft tissue healing. Patient completed surgery late last night. May need additional day of hospitalization Status: Acute Attestations Medical Necessity Statement*: Patient has yet to begin therapy. Discharge home when ambulatory and pain under good control. Coding Level of Care Code Acute Cooker Soda for Adonis Buck Diagnoses Closed displaced fracture of left femoral neck with nonunion S72.002K Status post hip hemiarthroplasty Z96.649
[2021-01-02] MEDS: gabapentin 300 mg Capsule PO ×2 (08:54→17:55)
[2021-01-02] MEDS: sennosides-docusate Tablet 2 TAB PO ×2 (08:54→17:55)
[2021-01-02] MEDS: lisinopril 10 mg Tablet PO (08:54)
[2021-01-02] MEDS: aspirin 81 mg EC Tablet PO (08:54)
[2021-01-02] MEDS: atorvastatin 40 mg Tablet PO (08:54)
[2021-01-02] MEDS: CELEcoxib 200 mg Capsule PO ×2 (08:54→21:51)
[2021-01-02 10:03] LABS: Hemoglobin 12.6 g/dL (11.5-15.3)
--- NOTE | 2021-01-02 10:43 | PC.CHAP ---
Pastoral Care Encounter/Spiritual Assessment Type of Contact [] Declined welding machine setter visit [] Patient/Family/Request visit [] Outpatient visit [] Follow-up visit [] Physician referral [] Code/Alert [x] Routine visit [] Staff referral [] Actively dying [] Patient sleeping [] Family support [] [] Out of room [] Palliative care [] [] Receiving care in room [] Pre-surgical visit [] Trauma [] Long length of stay [] ICU visit [] Other: Relational/Emotional Strength [] Patient feels connected with others/family/visitors/staff [] Distress [] Loneliness/isolation [] Abandonment Spirituality of Patient [x] Person of Patricia [] Attends Religion of their Patricia [x] Believes in Prayer [] Reads Bible or Episcopal materials [] There are Spiritual issues to be addressed Electric Installer Interventions [x] Prayer [] Active listening [] Non-anxious presence [] Spiritual/emotional support [] Crisis/trauma care [] Spiritual counseling [] Bereavement support [] Provided bereavement packet [] Provided Bible/devotional materials [] Provided toy/stuffed animal, coloring book to patient or family member [] Provided Communion [] Anointing/[place] [] Salvation [] Completed spiritual assessment [] Other: Impact on Illness or Injury [] Angry [] Fearful [x] Anxious [] Often cries [] Exhaustion [x] Unable to work [] Unable to attend nondenominational [] Unable to walk/stand [] Unable to read [] Unable to drive [] Unable to eat/drink [] Unable to sleep [x] Unable to be with family [] Patient intubated [] Other: Summary This poor girl feels anxious about getting things done at home. Fears her & daughter are not keeping up with the house and chores at home. Troubled and nervous. She said she was turning her head back and forth a lot, watching to see who is coming in, and was doing that when I entered the room. She said she had had more company in her room in a short time than a long time at home. That was good to her, but seemed like it may be concerning to her. Time spent with patient 5 minutes.
[2021-01-02] MEDS: ondansetron 2 mg/ML SDV 2 mL 4 MG IVP (11:42)
[2021-01-02 12:05] LABS: Glucose Point of Care 326 mg/dL (70-110)
[2021-01-02] MEDS: sodium chloride 0.9% 1,000 ML 75 ML IV (16:29)
[2021-01-02 17:25] LABS: Glucose Point of Care 290 mg/dL (70-110)
[2021-01-02 20:15] LABS: Glucose Point of Care 316 mg/dL (70-110)
[2021-01-03] VITALS (7 sets, daily range): BP systolic 94–136; BP diastolic 59–82; PULSE 87–100; RESP 16–18; TEMP 36.3–37.2; O2SAT 90–95
[2021-01-03] MEDS: acetaminophen 500 mg Tablet 1000 MG PO ×3 (05:47→21:33)
[2021-01-03 06:29] LABS: Glucose Point of Care 366 mg/dL (70-110)
--- NOTE | 2021-01-03 07:51 | PM.DCS ---
Discharge Providers Date of Admission: 01/01/21 20:51 Date of Discharge: January 03, 2021 Attending Provider at Admission: Godwin Brennan MD Attending Provider at Discharge: Godwin Brennan MD Primary Care Provider: Camila Rao MD Diagnoses at Discharge Discharge Diagnosis (1) Closed displaced fracture of left femoral neck with nonunion: Status: Resolved (2) Status post hip hemiarthroplasty: Status: Acute Reason for Visit Reason for Visit: left hip hemiarthroplasty 57536 s72.002K Hospital Course Hospital Course The patient tolerated surgery well. They remained hemodynamically stable. They was begun on aspirin and sequential compression devices for DVT prophylaxis. The patient was mobilized with therapy beginning the day of surgery and by the second postoperative day independent with the walker. Hip abduction precautions were maintained throughout the hospitalization due to soft tissue compromise with the chronic fracture dislocation of the hip preoperatively. As the pain was adequately controlled and they were fully mobile they were discharged home. Physical Exam Narrative: EXAM NARRATIVE: On the day of discharge the hip incision was clean. The incision was free of drainage. They had no particular swelling about the thigh or distal. No distal neurovascular deficits were noted. Discharge Data Data Completed and Pending: Completed Studies During Hospitalization Category Date Time Status XR hip LT 1V wo/w pel [id number] Routine Exams 01/01/21 19:31 Completed Labs from last 24 hours 01/03/21 01/02/21 01/02/21 06:16 20:12 17:09 Hgb POC Glucose 366 H 316 H 290 H 01/02/21 01/02/21 11:58 09:48 Hgb 12.6 POC Glucose 326 H Vitals: Last Vital Signs Temp 98.2 F 01/03/21 03:48 Pulse 100 01/03/21 03:48 Resp 16 01/03/21 03:48 BP 109/67 01/03/21 03:48 Pulse Ox 93 01/03/21 03:48 Discharge Plan Discharge Patient Disposition: Home Condition: Stable Prescriptions: New oxycodone 5 mg Tablet 5 mg PO Q4H PRN (Reason: Moderate Pain) 7 Days Qty: 30 RF: 0 acetaminophen 500 mg Tablet 1,000 mg PO Q8H 14 Days Qty: 84 RF: 0 celecoxib 200 mg Capsule 200 mg PO Q12H 14 Days Qty: 28 RF: 0 Continued lisinopril 10 mg tablet 10 mg PO DAILY RF: 0 atorvastatin 20 mg tablet 40 mg PO DAILY RF: 0 aspirin 81 mg tablet,delayed release (DR/EC) 81 mg PO DAILY RF: 0 insulin detemir U-100 100 unit/mL (3 mL) insulin pen 19 unit SUBCUT BID RF: 0 Discharge Orders: Discharge Order (Routine); Ordered 01/03/21 Ordered By: Godwin Brennan Referrals: Godwin Brennan MD [Physician] - 1-3 days Discharge Diet: Advance as tolerated Discharge Activity: Limit activity as instructed Patient Instructions: Opioid Safety Activity Restrictions/Additional Instructions: Okay to shower. No soaking incision in tub Apply FirstIce up to 20 min/hr for pain and swelling Keep abduction in place at night. Keep pillows or abduction pillow between legs when up in chair. Take Celebrex twice a day for the next 15 days for pain , discontinue other anti-inflammatories Take Tylenol 500mg (up to 2 tabs) 3 times a day for mild pain Take oxycodone for breakthrough pain. Exercises per physical therapy. May weight-bear as tolerated on total hip arthroplasty Discharge Attestations Time Spent in Discharge Care*: other Quality Metrics Clinical Quality Measures During this hospital stay, did patient experience: None Coding Level of Care Code Acute g FW DC note Diagnoses Closed displaced fracture of left femoral neck with nonunion S72.002K Status post hip hemiarthroplasty Z96.649
[2021-01-03] MEDS: sennosides-docusate Tablet 2 TAB PO ×2 (10:17→17:33)
[2021-01-03] MEDS: atorvastatin 40 mg Tablet PO (10:18)
[2021-01-03] MEDS: CELEcoxib 200 mg Capsule PO ×2 (10:18→21:33)
[2021-01-03] MEDS: aspirin 81 mg EC Tablet PO (10:18)
[2021-01-03] MEDS: gabapentin 300 mg Capsule PO ×2 (10:18→17:34)
[2021-01-03] MEDS: lisinopril 10 mg Tablet PO (10:18)
[2021-01-03 11:29] LABS: Glucose Point of Care 563 mg/dL (70-110)
[2021-01-03 11:29] LABS: Glucose Point of Care > 600 mg/dL (70-110)
--- NOTE | 2021-01-03 11:31 | PC.NURSE ---
Blood sugar Samples taken received a reading of 563 Test was reconfirmed, with a reading of HI. Reported to primary nurse Ammon.
--- NOTE | 2021-01-03 11:35 | PC.NURSE ---
Pt has been eating regular diet and had a sprite on her bedside table blood glucose levels are high insulin given and will recheck level.
--- NOTE | 2021-01-03 11:46 | PC.NURSE ---
Bath patient has been uncomfortable the majority of the morning. After pain medications were given, patient back to bed and resting quietly. Will complete bath later when patient is ready. LEACH CELL OPERATOR was notified.
[2021-01-03 12:33] LABS: Glucose Point of Care 553 mg/dL (70-110)
[2021-01-03 14:01] LABS: Glucose Point of Care 510 mg/dL (70-110)
[2021-01-03 14:01] LABS: Glucose Point of Care 547 mg/dL (70-110)
--- NOTE | 2021-01-03 14:19 | P.CONIM_ITS ---
Providers/Reason For Consult Consulting Physician/Specialty*: MD Cullen/internal medicine Reason for Consult*: Hyperglycemia Attending Physician: Godwin Brennan MD Primary Care Provider: Camila Rao MD History of Present Illness History of Present Illness Shanon Chávez is a 75 year old female with past medical history of type 2 diabetes mellitus for which she takes Levemir 19 units twice daily, hypertension, depression with admitted to the hospital on January 01 and underwent left bipolar hip arthroplasty with Dr. Brennan. Patient hospitalization has been unremarkable. Patient was supposed to be discharged today but prior to discharge yesterday morning her blood sugars have been running high in 500s so hospitalist team was consulted for further management. On review of medications with the patient she states she takes Levemir 19 units twice daily. She checks her blood sugar fasting at home and fasting blood sugars usually range from 60s to 134 with numbers as low as 34 as well. She states she has numbers as low as 30 for at least 2 or 3 times a week. On review of hospital records it seems patient has been on a regular diet and getting insulin sliding scale at moderate protocol. Yesterday morning patient has received 30 units of insulin and yesterday she received 48 units of insulin. Review of Systems General: Reports: 10 or more systems reviewed and unremarkable except in HPI and below Const: Denies: fever(s), chills, body aches, change in appetite, change in weight, malaise, night sweats, diaphoresis, change in sleep pattern, daytime sleepiness or snoring Eyes: Denies: change in vision, blurry vision, photophobia, eye discomfort or eye discharge ENMT: Denies: throat pain, enlarged tonsils, hoarseness, mouth pain, oral sores, dry mouth, tinnitus, nasal congestion or post nasal drip Card: Denies: chest pain, palpitations, irregular heart rhythm, edema, swelling of feet/ankles, lightheadedness, syncope, pre-syncope, dyspnea on exertion, orthopnea, leg pain with exertion or acrocyanosis Resp: Denies: dyspnea, productive cough, non-productive cough, wheezing, stridor, pain on inspiration, change in phlegm color, hemoptysis or chest congestion GI: Denies: abdominal pain, nausea, vomiting, hematemesis, coffee ground emesis, dysphagia, heartburn, diarrhea, constipation, bloating, GI cramping, change in bowel habits, pain on defecation, hematochezia or melena : Denies: flank pain, dysuria, urinary frequency, urinary urgency, urinary hesitancy, nocturia or hematuria Musc: Denies: neck pain, back pain, extremity pain, joint pain, joint swelling, joint redness, joint stiffness or limited range of motion Neuro: Denies: headache(s), numbness in extremities, weakness in extremities, sensory changes, lack of coordination, difficulty walking, frequent falls, dizziness, vertigo, confusion, Slurred speech present, difficulty communicating thoughts or seizure-like activity Psych: Denies: anxiety, depression, mood swings, panic attacks, hopelessness or irritability Endo: Denies: polyuria, polydipsia, tired all the time, cold intolerance, excessive sweating, flushing or heat intolerance Cody/Lymph: Denies: easy bruising or easy bleeding All/Imm: Denies: tongue swelling, facial swelling or acute wheezing Meds/Allergies Home Medications and Allergies Home Medications Medication Instructions Recorded Confirmed Last Taken Type lisinopril 10 mg tablet 10 mg PO DAILY 09/07/19 01/01/21 12/31/20 History aspirin 81 mg tablet,delayed 81 mg PO DAILY 02/25/20 01/01/21 12/25/20 History release atorvastatin 20 mg tablet 40 mg PO DAILY tab 02/25/20 01/01/21 12/31/20 History insulin detemir U-100 100 unit/mL 19 unit SUBCUT BID ml 09/12/20 01/01/21 12/31/20 History (3 mL) subcutaneous pen 50 acetaminophen 1,000 mg PO Q8H 14 Days #84 tab 01/03/21 Unknown Rx celecoxib 200 mg PO Q12H 14 Days #28 cap 01/03/21 Unknown Rx oxycodone 5 mg PO Q4H PRN 7 Days #30 tab 01/03/21 Unknown Rx Allergies Allergy/AdvReac Type Severity Reaction Status Date / Time Penicillins Allergy Unknown Verified 12/22/20 11:33 bandaid Allergy ALGY-Hives Uncoded 01/01/21 08:58 Current Medications Current Medications Generic Name Dose Route Start Last Admin Trade Name Freq PRN Reason Stop Dose Admin Acetaminophen 1,000 mg 01/01/21 21:13 01/03/21 12:53 Acetaminophen 500 Mg Tablet PO 1,000 mg Q8H DIANELYS Administration Aspirin 81 mg 01/02/21 09:00 01/03/21 10:18 Aspirin 81 Mg Ec Tablet PO 81 mg DAILY DIANELYS Administration Atorvastatin Calcium 40 mg 01/02/21 09:00 01/03/21 10:18 Atorvastatin 40 Mg Tablet PO 40 mg DAILY DIANELYS Administration Celecoxib 200 mg 01/01/21 21:13 01/03/21 10:18 Celecoxib 200 Mg Capsule PO 200 mg Q12H DIANELYS Administration Gabapentin 300 mg 01/02/21 09:00 01/03/21 10:18 Gabapentin 300 Mg Capsule PO 300 mg BID DIANELYS Administration Sodium Chloride 1,000 mls @ 75 mls/hr 01/01/21 21:13 01/03/21 13:02 Sodium Chloride 0.9% IV Infused .[id number] DIANELYS Infusion Insulin Aspart 0 unit 01/01/21 21:13 01/03/21 11:33 Insulin Aspart 100 Unit/1 Ml SUBCUT 16 unit WM&BEDTIME DIANELYS Administration Protocol Lisinopril 10 mg 01/02/21 09:00 01/03/21 10:18 Lisinopril 10 Mg Tablet PO 10 mg DAILY DIANELYS Administration Ondansetron HCl 4 mg 01/01/21 21:13 01/02/21 11:42 Ondansetron 2 Mg/Ml Sdv 2 Ml IVP 4 mg Q6H PRN Administration NAUSEA AND VOMITING Oxycodone HCl 5 mg 01/01/21 21:13 01/02/21 21:51 Oxycodone 5 Mg Ir Tab/Cap PO 5 mg Q4H PRN Administration MODERATE PAIN Senna/Docusate Sodium 2 tab 01/02/21 09:00 01/03/21 10:17 Sennosides-Docusate Tablet PO 2 tab BID DIANELYS Administration PFSH Acute PFSH: Medical History Chronic pain Depression Diabetes Dyslipidemia Insomnia Medication adverse effect Post-traumatic stress disorder, chronic Surgical History H/O left wrist surgery Status post colonoscopy Family History Mother Diabetes Father No problems noted. Social History Smoking and tobacco status: never smoked Alcohol intake: never Vitals/I&O/Wt Last Vital Signs Temp 97.4 F L 01/03/21 11:40 Pulse 98 01/03/21 11:40 Resp 18 01/03/21 11:40 BP 96/64 01/03/21 11:40 Pulse Ox 95 01/03/21 11:40 01/02/21 01/03/21 01/03/21 22:59 06:59 14:59 Intake Total 300 / 2310 200 / 2510 1600 / 1600 Output Total 150 / 350 Balance 300 / 2110 50 / 2160 1600 / 1600 Physical Exam Narrative: EXAM NARRATIVE: EXAM NARRATIVE: General: No acute distress, AO x3, HEENT: PERRLA, pupils bilaterally equal and reactive Chest: Normal vesicular breath sounds bilaterally, equal good air entry bilaterally, CVS: S1-S2 regular, no murmurs, no tachycardia, no gallops, no rubs Abdomen: Soft, nontender, no organomegaly, bowel sounds present, morbidly obese Neuro: No focal deficits, no facial deformity, AO x3, power 5/5 in all limbs A&P Assessment and plan (1) Hyperglycemia: Status: Acute (2) WENDY (acute kidney injury): Status: Acute (3) Status post hip hemiarthroplasty: Status: Acute (4) Diabetes: Status: Acute Additional A&P Information Hyperglycemia/history of type 2 diabetes mellitus: Patient takes 19 units of Levemir twice daily. Check HbA1c. Start normal saline at 75 cc/h. Check CBC, CMP, urinalysis, procalcitonin to rule out any signs of infection. Start on Levemir 20 units twice daily Insulin sliding scale at high-dose protocol. If patient has diabetic ketoacidosis and a high anion gap can move to ICU for insulin drip. Switch to regular diet to carb consistent diet. For now patient does not have any signs of infection, no fever so we will hold off on starting on any antibiotic. Acute kidney injury: IV fluids as above. Monitor BMP daily for now. Most likely secondary to dehydration from hyperglycemia. Medical reconciliation done for nephrotoxic drugs. For now stop home dose of lisinopril. Hypertension: Goal blood pressure less than 140/90 mmHg. Stop lisinopril because of WENDY. Continue to monitor. Status post hip hemiarthroplasty: Management as per orthopedics team. Full code. Anticoagulation as per orthopedics team. Carb consistent diet. Thank you for making a for part of care for Ms. Chávez. We will continue to follow. Consult Attestations Medical Necessity Statement: Patient requires further hospitalization because of ongoing severe hyperglycemia, acute kidney injury Time Spent in Patient Care: Greater than 35 minutes (>than 50% of time spent in counselling and/or direct pt care on unit) . Coding Level of Care Code Acute Loss Prevention Consultant for Adonis Buck Diagnoses Hyperglycemia R73.9 WENDY (acute kidney injury) N17.9 Status post hip hemiarthroplasty Z96.649 Diabetes E11.9
[2021-01-03] MEDS: sodium chloride 0.9% 1,000 ML 75 ML IV (14:53)
[2021-01-03 15:06] LABS: Basophils % 0.3 %; Eosinophils % 0.3 %; Hematocrit 32.5 % (37.0-47.0); Hemoglobin 10.2 g/dL (11.5-15.3); Lymphocytes # 1.1 10^3/uL (0.8-4.8); Lymphocytes % 7.8 %; Mean Corpuscular HGB Conc 31.4 g/dL (30.0-36.0); Mean Corpuscular Hemoglobin 29.1 pg (28.0-34.0); Mean Corpuscular Volume 92.9 fL (81-99); Mean Platelet Volume 14.1 fL (7.4-10.4); Monocytes # 0.8 10^3/uL (0.2-0.9); Monocytes % 5.6 %; Neutrophils % 85.4 %; Nucleated Red Blood Cells % 0 %; Platelet Count 191 10^3/cmm (130-400); Positive M 1; Red Cell Distribution Width 13.4 % (12.1-15.1); White Blood Count 14.4 10^3/uL (4.0-10.0)
[2021-01-03] MEDS: insulin glargine 100 units/1 mL 20 UNIT SUBCUT ×2 (16:00→17:33)
[2021-01-03 16:06] LABS: Alanine Aminotransferase < 5 U/L (0-33); Albumin Level 2.4 g/dL (3.5-5.2); Alkaline Phosphatase 113 IU/L (35-105); Aspartate Amino Transferase 14 U/L (0-32); Blood Urea Nitrogen 25 mg/dL (8-23); Calcium 7.6 mg/dL (8.5-10.5); Carbon Dioxide 19 mmol/L (22-29); Chloride 106 mmol/L (98-107); Globulin 2.7 g/dL (1.3-4.6); Glucose 398 mg/dL (65-115); Osmolality Calculated 303 mOsm/kg (285-295); Sodium 136 mmol/L (136-145); Total Bilirubin 0.2 mg/dL (0.15-1.2); Total Protein 5.1 g/dL (6.6-8.7)
[2021-01-03 16:09] LABS: Creatinine Clr Calc Pharmacy 37.1164
[2021-01-03 16:46] LABS: Glucose Point of Care 344 mg/dL (70-110)
[2021-01-03 17:32] LABS: Procalcitonin 17.19 ng/mL (0-0.5)
[2021-01-03 18:10] LABS: Bilirubin Urine Neg (Negative); Blood Urine Neg (Negative); Glucose Urine UA 4+ (Normal); Ketones Urine Negative (Negative); Nitrate Urine Negative (Negative); Protein Urine Neg (Negative); Urine Appearance Hazy (CLEAR); Urine Color Yellow (Yellow); Urobilinogen Urine Norm (Negative); pH Urine 5 (5-7)
[2021-01-03 18:11] LABS: Add Urine Microscopic? YES; Leukocyte Esterase Urine Trace (Negative)
[2021-01-03 18:14] LABS: Add Urine Culture? No; Bacteria Urine 1+ /hpf; Squamous Epithelial Cell Urine 25-40 /hpf (0-5); WBC Urine 25-40 /hpf (0-5)
[2021-01-03 19:40] LABS: Glucose Point of Care 237 mg/dL (70-110)
[2021-01-03 20:26] LABS: Estmated Average Glucose 166; Hemoglobin A1C 7.4 % (4.0-6.0)
[2021-01-03 20:55] LABS: Glucose Point of Care 93 mg/dL (70-110)
[2021-01-04 03:57] VITALS: BP 126/74; PULSE 83; RESP 16; TEMP 36.7; O2SAT 90
[2021-01-04] MEDS: acetaminophen 500 mg Tablet 1000 MG PO ×2 (05:47→14:46)
[2021-01-04 06:44] LABS: Glucose Point of Care 67 mg/dL (70-110)
[2021-01-04 07:14] VITALS: BP 120/75; PULSE 86; RESP 17; TEMP 36.8; O2SAT 92
[2021-01-04] MEDS: CELEcoxib 200 mg Capsule PO (08:54)
[2021-01-04] MEDS: gabapentin 300 mg Capsule PO (08:54)
[2021-01-04] MEDS: aspirin 81 mg EC Tablet PO (08:54)
[2021-01-04] MEDS: atorvastatin 40 mg Tablet PO (08:54)
[2021-01-04] MEDS: sennosides-docusate Tablet 2 TAB PO (08:55)
[2021-01-04] MEDS: insulin glargine 100 units/1 mL 20 UNIT SUBCUT (09:19)
[2021-01-04 09:32] LABS: Glucose Point of Care 149 mg/dL (70-110)
[2021-01-04 11:09] LABS: Glucose Point of Care 193 mg/dL (70-110)
[2021-01-04 11:15] VITALS: BP 124/75; PULSE 94; RESP 18; TEMP 36.8; O2SAT 91
[2021-01-04 11:20] LABS: Basophils # 0.1 10^3/uL (0.0-0.1); Basophils % 0.4 %; Eosinophils # 0.3 10^3/uL (0.0-0.8); Eosinophils % 1.9 %; Hematocrit 34.5 % (37.0-47.0); Hemoglobin 11.1 g/dL (11.5-15.3); Lymphocytes # 1.8 10^3/uL (0.8-4.8); Lymphocytes % 12.7 %; Mean Corpuscular HGB Conc 32.2 g/dL (30.0-36.0); Mean Corpuscular Hemoglobin 29.4 pg (28.0-34.0); Mean Corpuscular Volume 91.3 fL (81-99); Mean Platelet Volume 13.2 fL (7.4-10.4); Monocytes % 7.1 %; Neutrophils # 11.12 10^3/uL (1.8-7.7); Neutrophils % 77.4 %; Nucleated Red Blood Cells % 0 %; Platelet Count 228 10^3/cmm (130-400); Red Blood Count 3.78 10^6/uL (4.1-5.3); Red Cell Distribution Width 13.5 % (12.1-15.1); White Blood Count 14.4 10^3/uL (4.0-10.0)
[2021-01-04 11:47] LABS: Alanine Aminotransferase 7 U/L (0-33); Albumin Level 2.6 g/dL (3.5-5.2); Alkaline Phosphatase 124 IU/L (35-105); Anion Gap 14.4 (5-19); Aspartate Amino Transferase 20 U/L (0-32); Blood Urea Nitrogen 25 mg/dL (8-23); Calcium 7.6 mg/dL (8.5-10.5); Carbon Dioxide 20 mmol/L (22-29); Chloride 107 mmol/L (98-107); Globulin 3.1 g/dL (1.3-4.6); Glucose 222 mg/dL (65-115); Osmolality Calculated 297 mOsm/kg (285-295); Potassium 3.4 mmol/L (3.5-5.1); Sodium 138 mmol/L (136-145); Total Bilirubin 0.3 mg/dL (0.15-1.2); Total Protein 5.7 g/dL (6.6-8.7)
--- NOTE | 2021-01-04 13:44 | P.PN_ITS ---
Subjective Subjective: Interval history: Patient complains of some left hip pain. Tolerating p.o. intake. Passing urine. Vitals/I&O/Wt Last Vital Signs Temp 98.2 F 01/04/21 11:15 Pulse 94 01/04/21 11:15 Resp 18 01/04/21 11:15 BP 124/75 01/04/21 11:15 Pulse Ox 91 01/04/21 11:15 01/03/21 01/04/21 01/04/21 22:59 06:59 14:59 Intake Total 100 / 1940 1200 / 3140 480 / 480 Output Total 0 / 0 450 / 450 Balance 100 / 1940 750 / 2690 480 / 480 Physical Exam Narrative: EXAM NARRATIVE: EXAM NARRATIVE: General: No acute distress, AO x3, HEENT: PERRLA, pupils bilaterally equal and reactive Chest: Normal vesicular breath sounds bilaterally, equal good air entry bilaterally, CVS: S1-S2 regular, no murmurs, no tachycardia, no gallops, no rubs Abdomen: Soft, nontender, no organomegaly, bowel sounds present, morbidly obese Neuro: No focal deficits, no facial deformity, AO x3, power 5/5 in all limbs Data : 01/04/21 11:10 01/04/21 11:10 A&P Assessment and plan (1) Hyperglycemia: Status: Acute (2) WENDY (acute kidney injury): Status: Acute (3) Status post hip hemiarthroplasty: Status: Acute (4) Diabetes: Status: Acute Additional A&P Information Labs reviewed. Hyperglycemia/history of type 2 diabetes mellitus: Patient takes 19 units of Levemir twice daily. A1c 7.4. BS better controlled. Noted to have mild hypoglycemia in AM. Patient states same happens at home. Advice to take Levemir 19 Units in AM, 10 units at PM and recheck FBS. If FBS >120 to increase nightly dose Patient is also advised to maintain a blood sugar diary at home and follow-up wi th her primary care provider for further adjustment of hypoglycemics. Acute kidney injury: Creatinine 1.2. Resolving. Most likely secondary to hyperglycemia/dehydration and continuing of NICOLE inhibitor. Patient advised to maintain her hydration with at least 2 to 3 L of fluids daily. She is also advised to stop lisinopril for now as her blood pressures have been fine off the medication. Advised to maintain a blood pressure diary and not to start lisinopril before she repeats a BMP in 1 week and she follow-up with her primary care provider. Hypertension: Goal blood pressure less than 140/90 mmHg. Stop lisinopril because of WENDY. Continue to monitor. Status post hip hemiarthroplasty: Management as per orthopedics team. Full code. Anticoagulation as per orthopedics team. Carb consistent diet. Patient stable enough to be discharged from medicine point of view on above recommendations. Thank you for involving us in care of Ms. Chávez. Attestations Medical Necessity Statement*: As per primary team. Time Spent in Patient Care: Greater than 35 minutes (>than 50% of time spent in counselling and/or direct pt care on unit) . Coding Level of Care Code Acute Informatics Manager for Adonis Buck Diagnoses Hyperglycemia R73.9 WENDY (acute kidney injury) N17.9 Status post hip hemiarthroplasty Z96.649 Diabetes E11.9
[2021-01-04 16:16] VITALS: BP 124/75; PULSE 94; RESP 18; TEMP 36.8; O2SAT 91
== END 2021-01-04 16:17 | disposition home or self-care (01) ==
LOC: MEDSURG 20:51
PROVIDERS: Student in an Organized Health Care Education/Training Program; Admitting Provider Orthopaedic Surgery; PCP Internal Medicine; Visit Provider Orthopaedic Surgery
PROC: (CPT 27125; principal; 2021-01-01 11:40)
DX: S72.002K Fracture of unspecified part of neck of left femur, subsequent encounter for closed fracture with nonunion (principal); X58.XXXD Exposure to other specified factors, subsequent encounter; M80.059A Age-related osteoporosis with current pathological fracture, unspecified femur, initial encounter for fracture; E11.65 Type 2 diabetes mellitus with hyperglycemia; Z79.4 Long term (current) use of insulin; N17.9 Acute kidney failure, unspecified; I10 Essential (primary) hypertension; F32.9 Major depressive disorder, single episode, unspecified; Z79.82 Long term (current) use of aspirin; E11.9 Type 2 diabetes mellitus without complications; E78.5 Hyperlipidemia, unspecified
CPT/HCPCS: 27130; 36415; 36416; 72170; 73501; 80053; 81001; 82962; 83036; 84145; 85018; 85025; 96372; 96374; 97110; 97116; 97161; 97165; 97530; 97535; C1713; C1776; G0378; J0690; J1815 ×2; J2270; J2405; J2704; J3010; J7030

== ENCOUNTER → 2021-01-30 14:10 | Outpatient (BNVA) | payer MEDICARE, SELFPAY | PROVIDERS: PCP Internal Medicine; Visit Provider Orthopaedic Surgery | DX: Z96.642 Presence of left artificial hip joint (principal) | CPT/HCPCS: 73502 ==

== ENCOUNTER 2021-06-14 06:00 | Outpatient (RCR) | payer MEDICARE, SELFPAY | END 2021-06-22 23:59 | disposition home or self-care (01) | LOC: SPT 06:00 | PROVIDERS: PCP Internal Medicine; Referring Provider Internal Medicine; Visit Provider Internal Medicine | DX: M25.552 Pain in left hip (principal) | CPT/HCPCS: 97161 ==

== ENCOUNTER 2021-06-23 06:00 | Outpatient (RCR) | payer MEDICARE, SELFPAY | END 2021-07-23 23:59 | disposition home or self-care (01) | LOC: SPT 06:00 | PROVIDERS: PCP Internal Medicine; Referring Provider Internal Medicine; Visit Provider Internal Medicine | DX: M25.552 Pain in left hip (principal) | CPT/HCPCS: 97110 ==

== ENCOUNTER → 2021-07-03 13:01 | Outpatient (BNVA) | payer MEDICARE, SELFPAY | PROVIDERS: PCP Internal Medicine; Visit Provider Internal Medicine | DX: M80.059A Age-related osteoporosis with current pathological fracture, unspecified femur, initial encounter for fracture (principal); E34.9 Endocrine disorder, unspecified; E83.59 Other disorders of calcium metabolism; X58.XXXA Exposure to other specified factors, initial encounter; Z79.4 Long term (current) use of insulin | CPT/HCPCS: 99214 ==

== ENCOUNTER 2021-07-24 06:00 | Outpatient (RCR) | payer MEDICARE, SELFPAY | END 2021-08-20 23:59 | disposition home or self-care (01) | LOC: SPT 06:00 | PROVIDERS: PCP Internal Medicine; Referring Provider Internal Medicine; Visit Provider Internal Medicine | DX: M25.552 Pain in left hip (principal) | CPT/HCPCS: 97110 ==

== ENCOUNTER 2021-09-05 21:15 | Inpatient (IN) | payer MEDICARE, SELFPAY ==
[2021-09-05 21:16] VITALS: BP 157/86; PULSE 106; RESP 18; TEMP 36.8; O2SAT 95; BMI 22.4
--- NOTE | 2021-09-05 21:16 | ED_ITS ---
HPI - General Adult General: Chief complaint: General Medical Stated complaint: DIABETES Time Seen by Provider: 09/05/21 21:16 Limitations: altered mental status History of Present Illness: Ms. Chávez is a 75-year-old lady with history of diabetes who presents emergency department due to altered mental status. Apparently her daughter called EMS as the patient's blood sugar was high. She did apparently receive insulin about 30 minutes prior to coming to the emergency department however has continued to have high blood sugar. She does not typically check her blood sugar at home. There is a questionable history of seizure-like episodes for the patient shakes but can answer questions. No reported history prior to this of seizures. History is otherwise limited by patient's mental status. Review of Systems General: Reports: ROS unobtainable due to mental status PFS ED PFSH: Medical History Chronic pain Depression Diabetes Dyslipidemia Insomnia Medication adverse effect Post-traumatic stress disorder, chronic Surgical History H/O left wrist surgery Status post colonoscopy Family History Mother Diabetes Father No problems noted. Social History Smoking and tobacco status: never smoked Alcohol intake: never Physical Exam Const: COMMON NORMALS: alert GENERAL APPEARANCE: cooperative, well developed and ill appearing (somewhat) HENMT: COMMON NORMALS: normocephalic and atraumatic HEAD & SCALP: normocephalic and atraumatic THROAT: posterior oropharynx normal Eye: COMMON NORMALS: conjunctivae normal CONJUNCTIVA: Yes conjunctivae normal SCLERA: sclerae normal Neck/C-Spine: COMMON NORMALS: supple GENERAL: Yes trachea midline Resp: COMMON NORMALS: normal respiratory effort EFFORT & INSPECTION: Yes able to speak in complete sentences Cardio: COMMON NORMALS: regular rhythm RATE: tachycardic RHYTHM: regular rhythm GI: COMMON NORMALS: Soft to palpation PALPATION: Yes Soft to palpation and No Tenderness to palpation present (GI) PERCUSSION: normal to percussion Extremity: GENERAL: Yes normal exam except as noted and No edema Neuro: COMMON NORMALS: moves all extremities SENSORIUM/ORIENTATION: Yes amanda rt and Yes Orientation impaired OTHER: Patient is alert but at times provides very limited history, she appears to be unable to recall specific events. No focal neurologic deficits otherwise Course ED course: - Patient was seen and evaluated by me at bedside - Patient placed on cardiac monitors, IV access obtained - Initial evaluation notable for exam as above - Labs and xrays personally interpreted by me - Fluids given - Labs notable for no leukocytosis, normal hemoglobin. ABG with mild hypoxemia and decreased bicarb however pH is normal. Metabolic panel notable for glucose of 1200. Serum osm is a send out and pending at this time. Ketones negative. Urinalysis not concerned for urine tract infection. Toxic?labs otherwise negative. - Imaging notable for no lobar consolidation. CT head and neck negative for acute traumatic injury. Given unclear history and concern regarding possibility of inciting event in conjugation with the patient's mental status CT chest abdomen pelvis limited. No acute allergy/infectious etiology as an explanation for patient symptoms. - Upon serial reexamination after treatment the patient was mildly improved. - Given evidence of HHS additional fluids given and insulin drip initiated at 0.1 units/kg/h. - Based on patient history, evaluation, and testing as interpreted the most likely cause of the patient's condition is HHS resulting in neurologic dysfunction - The results of ED evaluation were discussed with the patient including plan for admission due to requirement for level of care not available if discharged to prevent significant worsening/deterioration. - Hospitalist service contacted and agreed with the patient - Patient was admitted without further deterioration or significant events. Note: Click bubbles or prepopulated cottrell in note writing are used for assistance with data collection and billing and are inherently more limited than narrative and other text portions of this note. Please use narrative for additional clinical history and defer to narrative/free test for any case of contradictory information. If information appears in only free text or click bubble it should be considered present or absent as reported. Please contact note underwriter solicitation director for clarifications of clinical information or contradictory information. MDM is a brief summary, contradictory or erroneous seeming information should be clarified and full note should be reviewed. Vital Signs: Vital signs: Vital Signs Temperature 98.1 F 09/09/21 16:00 Pulse Rate 92 09/09/21 16:00 Respiratory Rate 17 09/09/21 16:00 Blood Pressure 103/63 09/09/21 16:00 Pulse Oximetry 95 09/09/21 16:00 MDM - General Adult Medical Decision Making 75-year-old lady with history of diabetes presenting with altered mental status and hypoglycemia. Patient's glucose 1201 without evidence of DKA. Likely etiology is HHS. Fluids and insulin drip initiated. Admitted to ICU for further treatment and management.. Medical Records I reviewed the patient's medical records. Lab Data I reviewed the patient's lab results. : 09/09/21 05:36 09/09/21 05:36 Radiology Impressions Chest X-Ray 09/05/21 21:25 IMPRESSION: No acute findings. Head CT 09/05/21 21:25 IMPRESSION: No acute intracranial abnormality. Chronic microvascular ischemic changes. Cervical Spine CT 09/05/21 21:29 IMPRESSION: No acute abnormality Chest/Abdomen/Pelvis CT 09/05/21 23:35 IMPRESSION: 1. Large hiatus hernia 2. Mild basilar atelectasis 3. No change in intrathoracic extension of goiter 4. Chronic compression fractures at T11 and T12 5. No acute findings in the chest or significant change compared with 09/27/2020 IMPRESSION: 1. No acute findings in the abdomen or pelvis. 2. Chronic displacement of left hip prosthesis. 3. Old lumbar spine and pelvic fractures. Laboratory Results WBC 9.9 10^3/uL (4.0-10.0) 09/05/21 21: RBC 4.83 10^6/uL (4.1-5.3) 09/05/21 21:21 Hgb 13.9 g/dL (11.5-15.3) 09/05/21 21: Hct 45.9 % (37.0-47.0) 09/05/21 21: MCV 95.0 fl (81-99) 09/05/21 21: MCH 28.8 pg (28.0-34.0) 09/05/21 21: MCHC 30.3 g/dL (30.0-36.0) 09/05/21 21: RDW 12.8 % (12.1-15.1) 09/05/21 21: Plt Count 237 10^3/cmm (130-400) 09/05/21 21:21 MPV 14.4 fL (7.4-10.4) H 09/05/21 21:21 Neut % (Auto) 73.8 % 09/05/21 21:21 Lymph % (Auto) 18.1 % 09/05/21 21:21 [place] % (Auto) 6.6 % 09/05/21 21:21 Eos % (Auto) 0.7 % 09/05/21 21:21 Baso % (Auto) 0.5 % 09/05/21 21:21 Neut # (Auto) 7.33 10^3/uL (1.8-7.7) 09/05/21 21: Lymph # (Auto) 1.8 10^3/uL (0.8-4.8) 09/05/21 21:21 [place] # (Auto) 0.7 10^3/uL (0.2-0.9) 09/05/21 21: Eos # (Auto) 0.1 10^3/uL (0.0-0.8) 09/05/21 21:21 Baso # (Auto) 0.1 10^3/uL (0.0-0.1) 09/05/21 21:21 Nucleated RBC % (auto) 0 % 09/05/21 21: Nucleated RBCs # 0.0 /100WBC 09/05/21 21:21 Specimen Type Arterial 09/05/21 21:40 Sample Site Umbilical cord 09/05/21 21:40 ABG pH 7.41 (7.35-7.45) 09/05/21 21:40 ABG pCO2 33.1 mmHg (35-45) L 09/05/21 21:40 ABG pO2 68.8 mmHg (80.0-100.0) L 09/05/21 21:40 ABG HCO3 21.0 mmol/L (22-26) L 09/05/21 21:40 ABG Base Excess -2.9 mmol/L (-2.0-2.0) L 09/05/21 21:40 Timmy Test Pos 09/05/21 21:40 Hematocrit 39.7 % (37-47) 09/05/21 21:40 O2 Delivery Device None 09/05/21 21:40 Household Appliance Repairer ID [email or web address] 09/05/21 21:40 Sodium 126 mmol/L (136-145) L 09/05/21 21:21 Potassium 4.8 mmol/L (3.5-5.1) 09/05/21 21:21 Chloride 87 mmol/L (98-107) L 09/05/21 21:21 Carbon Dioxide 20 mmol/L (22-29) L 09/05/21 21:21 Anion Gap 23.8 (5-19) H 09/05/21 21:21 BUN 25 mg/dL (8-23) H 09/05/21 21:21 Creatinine 1.2 mg/dL (0.5-0.9) H 09/05/21 21:21 GFR Calculation Not Reportable 09/05/21 21:21 Glucose 1201 mg/dL (65-115) H* 09/05/21 21:21 POC Glucose 191 mg/dL (70-110) H 09/06/21 02:59 Estimat Average Glucose 303 09/05/21 21:21 Hemoglobin A1c 12.2 % (4.0-6.0) H 09/05/21 21:21 Serum Osmolality 331 mOsm/kg (278-305) H 09/05/21 23:30 Calculated Osmolality 328 mOsm/kg (285-295) H 09/05/21 21:21 Lactic Acid 2.5 mmol/L (0.5-2.2) H 09/05/21 23:11 Lactic Acid (Sepsis) 3.5 mmol/L (0.5-2.2) H 09/06/21 03:56 Calcium 9.6 mg/dL (8.5-10.5) 09/05/21 21:21 Phosphorus 3.2 mg/dL (2.5-4.5) 09/05/21 23:30 Magnesium 1.8 mg/dL (1.7-2.3) 09/05/21 23:30 Total Bilirubin 0.2 mg/dL (0.15-1.2) 09/05/21 21:21 AST 17 U/L (0-32) 09/05/21 21:21 ALT 14 U/L (0-33) 09/05/21 21:21 Alkaline Phosphatase 211 IU/L (35-105) H 09/05/21 21:21 Creatine Kinase 145 U/L (26-192) 09/05/21 21:21 Troponin T Baseline 44 ng/L (0-10) H 09/05/21 21:21 Troponin T 120 Minute 45.58 ng/L (0-10) H 09/05/21 23:30 Delta Troponin T 1.58 ABS# (0-10) 09/05/21 23:30 Troponin T Hi Sens 6Hr 32.99 ng/L (0-10) H 09/06/21 03:48 Troponin T Hi Sens 6Hr Delta -11.01 ng/L (0-12) L 09/06/21 03:48 NT-Pro-B Natriuret Pep 321 pg/mL (0-125) H 09/05/21 21:21 Total Protein 6.7 g/dL (6.6-8.7) 09/05/21 21: Albumin 3.8 g/dL (3.5-5.2) 09/05/21 21: Globulin 2.9 g/dL (1.3-4.6) 09/05/21 21: TSH 2.21 uIU/mL (0.27-4.20) 09/05/21 21:21 Urine Color Colorless (Yellow) 09/05/21 22:04 Urine Appearance Clear (CLEAR) 09/05/21 22:04 Urine pH 5 (5-7) 09/05/21 22:04 Ur Specific [place] 1.010 (1.005-1.030) 09/05/21 22:04 Urine Protein Neg (Negative) 09/05/21 22:04 Urine Glucose (UA) 4+ (Normal) H 09/05/21 22:04 Urine Ketones Negative (Negative) 09/05/21 22:04 Urine Blood Neg (Negative) 09/05/21 22:04 Urine Nitrate Negative (Negative) 09/05/21 22:04 Urine Bilirubin Neg (Negative) 09/05/21 22:04 Urine Urobilinogen Norm mg/dL (Negative) 09/05/21 22:04 Ur Leukocyte Esterase Negative (Negative) 09/05/21 22:04 Salicylates < 0.3 mg/dL (3-10) L 09/05/21 21: Acetaminophen < 5.0 ug/mL (10-30) L 09/05/21 21:21 Ethyl Alcohol < 10 mg/dL (0-10) 09/05/21 21:21 Serum Ketones Negative (Negative) 09/05/21 21:21 EKG Data EKG 1: I personally reviewed and interpreted this EKG as follows: EKG interpretation date: 09/05/21 Interpretation: Twelve-lead EKG shows a regular rhythm at a rate of 103. VA interval 172, QRS duration 84, QTc 397. Normal axis. Interpretation: Sinus tachycardia. Nonspecific ST segment abnormalities Computer generated interpretation: Chest X-Ray 09/05/21 21:25 IMPRESSION: No acute findings. Head CT 09/05/21 21:25 IMPRESSION: No acute intracranial abnormality. Chronic microvascular ischemic changes. Cervical Spine CT 09/05/21 21:29 IMPRESSION: No acute abnormality Chest/Abdomen/Pelvis CT 09/05/21 23:35 IMPRESSION: 1. Large hiatus hernia 2. Mild basilar atelectasis 3. No change in intrathoracic extension of goiter 4. Chronic compression fractures at T11 and T12 5. No acute findings in the chest or significant change compared with 09/27/2020 IMPRESSION: 1. No acute findings in the abdomen or pelvis. 2. Chronic displacement of left hip prosthesis. 3. Old lumbar spine and pelvic fractures. EKG 2: I personally reviewed and interpreted this EKG as follows: EKG interpretation date: 09/06/21 EKG interpretation time: 00:10 Interpretation: Twelve-lead EKG shows a regular rhythm at a rate of 96. VA interval 176, QRS ration 85, QTc 417. Right axis deviation Interpretation: Sinus rhythm. [place] deviation. Nonspecific ST segment abnormalities. Computer generated interpretation: Chest X-Ray 09/05/21 21:25 IMPRESSION: No acute findings. Head CT 09/05/21 21:25 IMPRESSION: No acute intracranial abnormality. Chronic microvascular ischemic changes. Cervical Spine CT 09/05/21 21:29 IMPRESSION: No acute abnormality Chest/Abdomen/Pelvis CT 09/05/21 23:35 IMPRESSION: 1. Large hiatus hernia 2. Mild basilar atelectasis 3. No change in intrathoracic extension of goiter 4. Chronic compression fractures at T11 and T12 5. No acute findings in the chest or significant change compared with 09/27/2020 IMPRESSION: 1. No acute findings in the abdomen or pelvis. 2. Chronic displacement of left hip prosthesis. 3. Old lumbar spine and pelvic fractures. Critical Care Time Critical Care Time: Critical Care Time: Yes Total Critical Care Time: 45 Attestation: Due to a high probability of clinically significant, possibly life threatening deterioration, the patient required my highest level of attention and preparedness to intervene emergently and I personally spent this critical care time directly and personally managing the patient. This critical care time included obtaining a history; examining the patient; pulse oximetry; ordering and review of laboratory and imaging studies; arranging urgent treatment with development of a management plan; evaluation of patient's response to treatment; frequent reassessment; and, discussions with other providers as applicable. It was exclusive of separately billable procedures. Primary systems involved is neuro and metabolic/endocrine. Discharge Plan Discharge Patient Disposition: Admitted As Inpatient Admit Provider: Adria Lemus Clinical Impression: HHS (hypothenar hammer syndrome), Altered mental status Condition: Stable Coding Level of Care Code ED [place] Laborer for Adonis Buck
--- NOTE | 2021-09-05 21:25 | XRR_ITS ---
PROCEDURE INFORMATION: Exam: XR Chest Exam date and time: 09/05/2021 9:25 PM Age: 75 years old Clinical indication: Other: AMS TECHNIQUE: Imaging protocol: XR of the chest. Views: 1 view. COMPARISON: CR XR chest 1V portable [id number] 11/13/2020 10:36 AM FINDINGS: Lungs: Unremarkable. No consolidation. Pleural spaces: Unremarkable. No pleural effusion. No pneumothorax. Heart/Mediastinum: Unremarkable. No cardiomegaly. Bones/joints: Unremarkable. XR/XR chest 1V portable [id number] IMPRESSION: No acute findings.
--- NOTE | 2021-09-05 21:25 | ECG_ITS ---
[facility] Test Date: 2021-09-05 Pat Name: Shanon Chávez Department: Room: Gender: Female Pan Puller: : 1945 Requested By: Juan F Salgado Order Number: [id number] Dl MD: Chris Monson M.D. Measurements Intervals [place] Rate: 103 P: 65 AR: 172 QRS: 63 QRSD: 84 T: 50 QT: 338 QTc: 443 Interpretive Statements SINUS TACHYCARDIA LOW QRS VOLTAGE [QRS DEFLECTION < 0.5/1.0 mV IN LIMB/CHEST LEADS] Compared to ECG 11/13/2020 10:07:14 Sinus rhythm no longer present Electronically Signed On 09-05-2021 23:04:53 CDT by Chris Monson M.D. [id number]
--- NOTE | 2021-09-05 21:25 | CTR_ITS ---
PROCEDURE INFORMATION: Exam: CT Head Without Contrast Exam date and time: 09/05/2021 9:25 PM Age: 75 years old Clinical indication: Injury or trauma; Fall; Blunt trauma (contusions or hematomas); Altered mental status/memory loss; Patient HX: AMS. Seizure like activity. Elevated blood glucose. Patient states she fell out of bed this evening. Poor historian. ; Additional info: AMS, seizure like episodes TECHNIQUE: Imaging protocol: Computed tomography of the head without contrast. Radiation optimization: All CT scans at this facility use at least one of these dose optimization techniques: automated exposure control; mA and/or kV adjustment per patient size (includes targeted exams where dose is matched to clinical indication); or iterative reconstruction. COMPARISON: CT head wo con* [id number] 11/13/2020 9:49 AM RADIATION DOSE METRICS: Total DLP (mGy-cm): 874.61 FINDINGS: Brain: There are moderate periventricular and subcortical lucencies consistent with chronic microvascular ischemic changes. The cordoba-white differentiation is maintained. No hemorrhage. No edema. Cerebral ventricles: No ventriculomegaly. Paranasal sinuses: Visualized sinuses are unremarkable. No fluid levels. Mastoid air cells: Visualized mastoid air cells are well aerated. Bones/joints: Unremarkable. No acute fracture. Soft tissues: Unremarkable. CT/CT head wo con* [id number] IMPRESSION: No acute intracranial abnormality. Chronic microvascular ischemic changes.
[2021-09-05] MEDS: LORazepam 2 mg/mL INJ 1 mL 1 MG IVP (21:28)
--- NOTE | 2021-09-05 21:29 | CTR_ITS ---
PROCEDURE INFORMATION: Exam: CT Cervical Spine Without Contrast Exam date and time: 09/05/2021 9:29 PM Age: 75 years old Clinical indication: Injury or trauma; Fall; Blunt trauma; Patient HX: AMS. Seizure like activity. Elevated blood glucose. Patient states she fell out of bed this evening. Poor historian. TECHNIQUE: Imaging protocol: Computed tomography images of the cervical spine without contrast. Radiation optimization: All CT scans at this facility use at least one of these dose optimization techniques: automated exposure control; mA and/or kV adjustment per patient size (includes targeted exams where dose is matched to clinical indication); or iterative reconstruction. COMPARISON: CT head wo con* [id number] 09/05/2021 9:39 PM RADIATION DOSE METRICS: Total DLP (mGy-cm): 359.57 FINDINGS: Bones/joints: Grade 1 retrolisthesis of C3 over C4. Discs/Spinal canal/Neural foramina: Non fusion of posterior arch of C1.There is multilevel uncovertebral and facet hypertrophy with neural foramina narrowing. Multilevel degenerative disc disease. Lungs: Lung apices are normal. Soft tissues: Unremarkable. CT/CT cervical spin wo con* [id number] IMPRESSION: No acute abnormality
[2021-09-05 21:37] LABS: Glucose Point of Care > 600 mg/dL (70-110)
[2021-09-05 21:52] LABS: ABG PCO2 33.1 mmHg (35-45); ABG PH Result 7.41 (7.35-7.45); Arterial Blood Gas Hematocrit 39.7 % (37-47); Base Excess ABG -2.9 mmol/L (-2.0-2.0); Blood Gas Allen Test Pos; Blood Gas Sample Site Umbilical cord; Blood Gas Sample Type Arterial; PO2 ABG 68.8 mmHg (80.0-100.0)
[2021-09-05 22:03] LABS: Basophils # 0.1 10^3/uL (0.0-0.1); Basophils % 0.5 %; Eosinophils # 0.1 10^3/uL (0.0-0.8); Eosinophils % 0.7 %; Hematocrit 45.9 % (37.0-47.0); Hemoglobin 13.9 g/dL (11.5-15.3); Lymphocytes # 1.8 10^3/uL (0.8-4.8); Lymphocytes % 18.1 %; Mean Corpuscular HGB Conc 30.3 g/dL (30.0-36.0); Mean Corpuscular Hemoglobin 28.8 pg (28.0-34.0); Monocytes # 0.7 10^3/uL (0.2-0.9); Monocytes % 6.6 %; Neutrophils # 7.33 10^3/uL (1.8-7.7); Neutrophils % 73.8 %; Nucleated Red Blood Cells % 0 %; Platelet Count 237 10^3/cmm (130-400); Red Blood Count 4.83 10^6/uL (4.1-5.3); Red Cell Distribution Width 12.8 % (12.1-15.1); White Blood Count 9.9 10^3/uL (4.0-10.0)
[2021-09-05 22:04] LABS: Mean Platelet Volume 14.4 fL (7.4-10.4)
[2021-09-05 22:07] LABS: Ketone (Acetest) Serum Negative (Negative)
[2021-09-05] MEDS: sodium chloride 0.9% 1,000 ML 999 ML IV (22:09)
[2021-09-05 22:10] LABS: Add Urine Microscopic? NO; Charge for UA Resulting for Rev
[2021-09-05 22:12] LABS: Bilirubin Urine Neg (Negative); Blood Urine Neg (Negative); Glucose Urine UA 4+ (Normal); Ketones Urine Negative (Negative); Leukocyte Esterase Urine Negative (Negative); Nitrate Urine Negative (Negative); Protein Urine Neg (Negative); Urine Appearance Clear (CLEAR); Urine Color Colorless (Yellow); Urobilinogen Urine Norm (Negative); pH Urine 5 (5-7)
[2021-09-05 22:18] LABS: Troponin(5th) Baseline 44 ng/L (0-10)
[2021-09-05 22:19] LABS: Acetaminophen < 5.0 ug/mL (10-30); Alanine Aminotransferase 14 U/L (0-33); Albumin Level 3.8 g/dL (3.5-5.2); Alcohol Level < 10 mg/dL (0-10); Alkaline Phosphatase 211 IU/L (35-105); Anion Gap 23.8 (5-19); Aspartate Amino Transferase 17 U/L (0-32); Blood Urea Nitrogen 25 mg/dL (8-23); Calcium 9.6 mg/dL (8.5-10.5); Carbon Dioxide 20 mmol/L (22-29); Chloride 87 mmol/L (98-107); Creatine Phosphokinase 145 U/L (26-192); Globulin 2.9 g/dL (1.3-4.6); Potassium 4.8 mmol/L (3.5-5.1); Salicylate < 0.3 mg/dL (3-10); Sodium 126 mmol/L (136-145); Total Bilirubin 0.2 mg/dL (0.15-1.2); Total Protein 6.7 g/dL (6.6-8.7)
[2021-09-05 22:25] LABS: NT Pro B Type Natriuretic Pept 321 pg/mL (0-125); Thyroid Stimulating Hormone 2.21 uIU/mL (0.27-4.20)
[2021-09-05 22:31] LABS: Glucose 1201 mg/dL (65-115); Osmolality Calculated 328 mOsm/kg (285-295)
[2021-09-05 23:13] VITALS: BP 161/94; PULSE 90; RESP 20; TEMP 36.2; O2SAT 98
--- NOTE | 2021-09-05 23:25 | ECG_ITS ---
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 Measurements Intervals [place] Rate: 96 P: 75 [place]: 176 QRS: 101 QRSD: 85 T: 31 QT: 363 QTc: 460 Interpretive Statements SINUS RHYTHM RIGHT AXIS DEVIATION [QRS AXIS > 100] LOW QRS VOLTAGE [QRS DEFLECTION < 0.5/1.0 mV IN LIMB/CHEST LEADS] Compared to ECG 09/05/2021 20:56:31 Right-axis deviation now present Sinus tachycardia no longer present Electronically Signed On 09-06-2021 21:55:31 CDT by Nicole Radford M.D. [id number]
--- NOTE | 2021-09-05 23:35 | CTR_ITS ---
PROCEDURE INFORMATION: Exam: CT Chest With Contrast; Diagnostic Exam date and time: 09/05/2021 11:35 PM Age: 75 years old Clinical indication: Other: Ams/ bsg of 1200; Other: Ams/bsg of 1200; Prior surgery; Surgery type: Thr; Patient HX: AMS. Blood sugar of 1200. Hyponatremia. TECHNIQUE: Imaging protocol: Diagnostic computed tomography of the chest with contrast. Radiation optimization: All CT scans at this facility use at least one of these dose optimization techniques: automated exposure control; mA and/or kV adjustment per patient size (includes targeted exams where dose is matched to clinical indication); or iterative reconstruction. Contrast material: VISI 320; Contrast volume: 75 ml; Contrast route: INTRAVENOUS (IV); COMPARISON: CT chest w con* [id number] 09/27/2020 1:49 PM RADIATION DOSE METRICS: Total DLP (mGy-cm): 1487.55 FINDINGS: Lungs: There is some partial atelectasis at the left lung base. No focal consolidation is identified. Pleural spaces: Unremarkable. No pneumothorax. No pleural effusion. Heart: There is left paratracheal soft tissue mass contiguous with the lower pole of the left thyroid gland representing intrathoracic extension of border not significantly changed There is moderate atherosclerotic calcification of the coronary arteries. Aorta: There is atherosclerotic calcification of the aortic arch.There is no thoracic aortic aneurysm or dissection. Lymph nodes: There is no evidence of lymphadenopathy. Diaphragm: A large hiatal hernia is present. Bones/joints: There is severe compression deformity of T11 and T12 not significantly changed. Soft tissues: Unremarkable. PROCEDURE INFORMATION: Exam: CT Abdomen And Pelvis With Contrast Exam date and time: 09/05/2021 11:35 PM Age: 75 years old Clinical indication: Other: Ams/ bsg of 1200; Other: Ams/bsg of 1200; Prior surgery; Surgery type: Thr; Patient HX: AMS. Blood sugar of 1200. Hyponatremia. TECHNIQUE: Imaging protocol: Computed tomography of the abdomen and pelvis with contrast. Radiation optimization: All CT scans at this facility use at least one of these dose optimization techniques: automated exposure control; mA and/or kV adjustment per patient size (includes targeted exams where dose is matched to clinical indication); or iterative reconstruction. Contrast material: VISI 320; Contrast volume: 75 ml; Contrast route: INTRAVENOUS (IV); COMPARISON: CR XR hip LT 2-3V wo/w pel* [id number] 01/30/2021 2:18 PM RADIATION DOSE METRICS: Total DLP (mGy-cm): 1487.55 FINDINGS: Tubes, catheters and devices: There is left hip replacement with chronic displacement of the acetabular component of the left hip prosthesis is demonstrated on prior plain radiographs of 01/30/2021. The degree of displacement appears slightly greater than on the plain radiographs. Liver: There is no focal abnormality within the liver. Gallbladder and bile ducts: The gallbladder is normal. Pancreas: Pancreas is moderately atrophic but otherwise unremarkable. Spleen: The spleen is normal. Adrenal glands: The adrenal glands are normal. Kidneys and ureters: The kidneys are normal. There is no evidence of hydronephrosis. There is no evidence of renal or ureteral calcifications. Stomach and bowel: There is no evidence of colitis/diverticulitis. Appendix: Not identified Intraperitoneal space: Unremarkable. No free air. No significant fluid collection. Vasculature: The aorta demonstrates mild atherosclerotic calcification. There is no evidence of an abdominal aortic aneurysm. Lymph nodes: There is no evidence of lymphadenopathy. Urinary bladder: Unremarkable as visualized. Reproductive: Unremarkable as visualized. Bones/joints: There are old healed pelvic fractures. There is bilateral L5 spondylolysis and severe disc space narrowing and spondylolisthesis at L5-S1 with approximately 12 mm of anterior displacement of L5 on S1. There is chronic appearing compression deformity of the superior endplate of L3. Soft tissues: Unremarkable. CT/CT chest abd pel w con* IMPRESSION: 1. Large hiatus hernia 2. Mild basilar atelectasis 3. No change in intrathoracic extension of goiter 4. Chronic compression fractures at T11 and T12 5. No acute findings in the chest or significant change compared with 09/27/2020 IMPRESSION: 1. No acute findings in the abdomen or pelvis. 2. Chronic displacement of left hip prosthesis. 3. Old lumbar spine and pelvic fractures.
[2021-09-05] MEDS: iodixanol 320 mg/mL 100mL Btl IV (23:51)
[2021-09-05 23:54] LABS: Lactic Sepsis W/Reflex 2.5 mmol/L (0.5-2.2)
[2021-09-06] VITALS (107 sets, daily range): BP systolic 107–169; BP diastolic 64–115; PULSE 57–123; RESP 9–26; TEMP 36.4–36.8; O2SAT 92–98; BMI 22.8
[2021-09-06] LABS: Troponin 5 2HR 45.58 ng/L (0-10)
[2021-09-06 00:04] LABS: Troponin 5 2HR Delta 1.58 ABS# (0-10)
[2021-09-06] MEDS: insulin regular-human 250 UNIT in sodium chloride 0.9% 250 ML 34.23 UNIT IV (00:04)
[2021-09-06 00:05] LABS: Magnesium 1.8 mg/dL (1.7-2.3); Phosphorus 3.2 mg/dL (2.5-4.5)
[2021-09-06] MEDS: sodium chloride 0.9% 250 ML IV (00:16)
[2021-09-06 01:05] LABS: Glucose Point of Care 590 mg/dL (70-110)
[2021-09-06 01:13] LABS: Reflex Lactate Order REFLEX LACTIC ORDERD
[2021-09-06] MEDS: LORazepam 2 mg/mL INJ 1 mL 1 MG IVP (01:37)
[2021-09-06 02:14] LABS: Glucose Point of Care 308 mg/dL (70-110)
[2021-09-06 03:01] LABS: Glucose Point of Care 191 mg/dL (70-110)
--- NOTE | 2021-09-06 03:23 | P.HP_ITS ---
Providers/Chief Complaint Primary Care Provider: Camila Rao MD Chief Complaint: DIABETES History of Present Illness 75-year-old lady with history of DM 2 among other chronic conditions was brought in for evaluation due to altered mental status to ER where she is found to have extremely elevated blood glucose as high as 1201. History obtained discussion with ER physician and from documentation as she is unable to provide history. She appears to now realize that she is in the hospital, tells me I will be all right , dialysis deny pain or discomfort, does not answer other questions. Cannot tell me the year. Reports he received insulin 30 minutes prior to coming to the ER. Serum and urine ketones negative. TSH normal. Lactic acid 2.5. Bicarb 20, anion gap 23.8, BUN 25, creatinine 1.2. Alkaline phosphatase 211. In ER she has been fluid bolus, started on IV hydration, insulin drip. She is afebrile, without leukocytosis. Exam and assessment in ER did not reveal infection as possible trigger of her condition. Chest x-ray without acute findings, CT head without acute abnormality, chronic microvascular ischemic changes. CT cervical spine without acute abnormality. CT chest abdomen pelvis with contrast with noted large hiatal hernia, mild basilar atelectasis, no change in intrathoracic distention of goiter, chronic compression fractures T11 and T12, no acute changes from prior CT/01/10. No acute findings in abdomen pelvis. Current displacement of left hip prosthesis. Old lumbar spine and pelvic fractures. Review of Systems General: Reports: ROS unobtainable due to mental status Medications/Allergies Home Medications Medication Instructions Recorded Confirmed Last Taken Type aspirin 81 mg tablet,delayed 81 mg PO DAILY 02/25/20 07/24/21 12/25/20 History release atorvastatin 20 mg tablet 40 mg PO DAILY tab 02/25/20 07/24/21 12/31/20 History insulin detemir U-100 100 unit/mL 24 unit SUBCUT BID ml 07/03/21 07/24/21 Unknown History (3 mL) subcutaneous pen Allergies Allergy/AdvReac Type Severity Reaction Status Date / Time Penicillins Allergy Unknown Verified 07/24/21 10:10 bandaid Allergy ALGY-Hives Uncoded 07/24/21 10:10 PFSH Acute PFSH: Medical History Chronic pain Depression Diabetes Dyslipidemia Insomnia Medication adverse effect Post-traumatic stress disorder, chronic Surgical History H/O left wrist surgery Status post colonoscopy Family History Mother Diabetes Father No problems noted. Social History Smoking and tobacco status: never smoked Alcohol intake: never Vitals/I&O/Wt Last Vital Signs Temp 97.2 F L 09/05/21 23:13 Pulse 90 09/05/21 23:13 Resp 20 H 09/05/21 23:13 BP 161/94 09/05/21 23:13 Pulse Ox 98 09/05/21 23:13 09/05/21 09/05/21 09/06/21 14:59 22:59 06:59 Intake Total 301.757 / 301.757 Balance 301.757 / 301.757 Weight last 48 hrs Weight 52.163 kg Physical Exam Const: COMMON NORMALS: no acute distress; negative for patient oriented x3 ORIENTATION/CONSCIOUSNESS: Yes confused HENMT: COMMON NORMALS: oropharynx normal Neck/C-Spine: COMMON NORMALS: no JVD Resp: COMMON NORMALS: normal respiratory effort and clear to auscultation bilaterally AUSCULTATION: clear to auscultation bilaterally Cardio: COMMON NORMALS: no JVD, regular rhythm, S1 normal heart sound present, S2 normal heart sound present and No murmurs present (Cardio) RHYTHM: regular rhythm HEART SOUNDS: S1 normal heart sound present and S2 normal heart sound present GI: COMMON NORMALS: Normal to inspection, nondistended, normoactive bowel sounds present, Soft to palpation and non-tender PALPATION: Yes Soft to palpation Extremity: COMMON NORMALS: no joint enlargement and no pedal edema Neuro: COMMON NORMALS: patient oriented x3 and moves all extremities Skin: COMMON NORMALS: no rashes or lesions noted GENERAL SKIN EXAM: no rashes or lesions noted Data : 09/05/21 21:21 09/05/21 21:21 Micro: Microbiology 09/05/21 23:11 Blood Culture - Preliminary Blood SPECIMEN COLLECTED 09/05/21 23:11 Blood Culture - Preliminary Blood SPECIMEN COLLECTED A&P Assessment and plan (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 Drip was stopped with glucose decreasing to 308. She is transitioned to subcutaneous insulin, Lantus plus sliding scale. Still with encephalopathy, although possibly some improvement and she now knows she is . continue IV fluids for now until safe to resume oral intake. Serum abnormality was requested but it is a send out. Status: Acute (2) Altered mental status: Acute metabolic encephalopathy secondary to HHS. Continue to treat hyperglycemia, continue IV hydration. Reassess mental status. Status: Acute (3) Hyperglycemia: Improving, insulin drip stopped. Transition to subcu insulin. Status: Acute (4) Chronic kidney disease: Creatinine 1.2 which appears to be at baseline since 2020. Status: Acute (5) Troponin level elevated: Baseline 44, 2hr 45.58. She denies chest pain or pressure. Complete troponin EKG series. Suspect this is due to demand from her acute medical condition. Consider referral for additional risk stratification with stress testing on outpatient basis. Status: Acute Plan DM2: With severe hyperglycemia. Check A1c Attestations Medical Necessity Statement*: Admission of over 2 midnights is anticipated for assessment of management of HHS, severe hyperglycemia, acute metabolic encephalopathy. 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
--- NOTE | 2021-09-06 03:25 | ECG_ITS ---
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 Measurements Intervals [place] Rate: 108 P: 74 SC: 196 QRS: 83 QRSD: 97 T: 53 QT: 344 QTc: 463 Interpretive Statements SINUS TACHYCARDIA Possible old inferior wall PA LOW QRS VOLTAGE [QRS DEFLECTION < 0.5/1.0 mV IN LIMB/CHEST LEADS] Compared to ECG 09/06/2021 00:04:28 Sinus rhythm no longer present Right-axis deviation no longer present Electronically Signed On 09-06-2021 21:56:31 CDT by Nicole Radford M.D. [id number]
[2021-09-06 04:17] LABS: Lactic Acid level (Lactate) 3.5 mmol/L (0.5-2.2)
[2021-09-06] MEDS: sodium chloride 0.9% 250 ML 10.6 ML IV ×2 (04:22→05:49)
[2021-09-06 04:40] LABS: Troponin 5 6HR 32.99 ng/L (0-10)
[2021-09-06 04:57] LABS: Estmated Average Glucose 303; Hemoglobin A1C 12.2 % (4.0-6.0)
[2021-09-06] MEDS: insulin regular-human 250 UNIT in sodium chloride 0.9% 250 ML IV (05:10)
--- NOTE | 2021-09-06 05:13 | PC.NURSE ---
2950 verbal order to stop insulin drip
[2021-09-06] MEDS: enoxaparin 40 mg/0.4 mL Syringe SUBCUT (05:19)
[2021-09-06] MEDS: pantoprazole 40 mg SDV IVP (05:19)
[2021-09-06] MEDS: insulin lispro 100 unit/1 mL SUBCUT ×3 (05:54→21:36)
[2021-09-06 07:41] LABS: Glucose Point of Care 181 mg/dL (70-110)
[2021-09-06] MEDS: insulin glargine 100 units/1 mL 20 UNIT SUBCUT ×2 (08:10→21:37)
--- NOTE | 2021-09-06 10:05 | PC.PHAR ---
pt unable to verify medications-medications entered are from what [facility] has filled recently-called pts and daughter dorinda they read out some medications for lasix 20mg daily,ibu 600mg, fluconazole 200mg once a week and bupropion 100mg bid called [facility] they state they have never filled those medications for the pt states they fill that medication for the pts daughter lenora-notes are made in the pharmacy comments
[2021-09-06 12:09] LABS: Glucose Point of Care 167 mg/dL (70-110)
[2021-09-06] MEDS: dextrose 5%-sod chloride 0.45% 1,000 ML 50 ML IV (15:07)
[2021-09-06 21:33] LABS: Glucose Point of Care 332 mg/dL (70-110)
[2021-09-07] VITALS (39 sets, daily range): BP systolic 108–155; BP diastolic 59–108; PULSE 81–112; RESP 14–48; TEMP 36.9–37.1; O2SAT 94–100
[2021-09-07 01:34] LABS: Glucose Point of Care 106 mg/dL (70-110)
[2021-09-07] MEDS: insulin lispro 100 unit/1 mL SUBCUT ×3 (02:33→20:45)
[2021-09-07 02:35] LABS: Glucose Point of Care 150 mg/dL (70-110)
[2021-09-07] MEDS: pantoprazole 40 mg SDV IVP (04:33)
[2021-09-07] MEDS: enoxaparin 40 mg/0.4 mL Syringe SUBCUT (04:33)
[2021-09-07 04:52] LABS: Basophils % 0.3 %; Eosinophils # 0.3 10^3/uL (0.0-0.8); Eosinophils % 2.4 %; Hematocrit 39.8 % (37.0-47.0); Hemoglobin 12.9 g/dL (11.5-15.3); Lymphocytes # 2.9 10^3/uL (0.8-4.8); Lymphocytes % 21.2 %; Mean Corpuscular HGB Conc 32.4 g/dL (30.0-36.0); Mean Corpuscular Hemoglobin 29.1 pg (28.0-34.0); Mean Corpuscular Volume 89.6 fl (81-99); Monocytes # 1.2 10^3/uL (0.2-0.9); Monocytes % 8.6 %; Neutrophils % 67.1 %; Nucleated Red Blood Cells % 0 %; Platelet Count 229 10^3/cmm (130-400); Red Blood Count 4.44 10^6/uL (4.1-5.3); Red Cell Distribution Width 12.4 % (12.1-15.1); White Blood Count 13.6 10^3/uL (4.0-10.0)
[2021-09-07 05:02] LABS: Mean Platelet Volume 13.5 fL (7.4-10.4)
[2021-09-07 05:18] LABS: Alanine Aminotransferase 11 U/L (0-33); Albumin Level 3.2 g/dL (3.5-5.2); Alkaline Phosphatase 136 IU/L (35-105); Anion Gap 13.9 (5-19); Aspartate Amino Transferase 18 U/L (0-32); Blood Urea Nitrogen 16 mg/dL (8-23); Calcium 8.6 mg/dL (8.5-10.5); Carbon Dioxide 22 mmol/L (22-29); Chloride 109 mmol/L (98-107); Globulin 3.3 g/dL (1.3-4.6); Glucose 79 mg/dL (65-115); Magnesium 1.6 mg/dL (1.7-2.3); Osmolality Calculated 294 mOsm/kg (285-295); Sodium 142 mmol/L (136-145); Total Bilirubin 0.3 mg/dL (0.15-1.2); Total Protein 6.5 g/dL (6.6-8.7)
[2021-09-07 05:47] LABS: Potassium 2.9 mmol/L (3.5-5.1)
[2021-09-07] MEDS: lidocaine 1% 5 ML in potassium chloride premix 100 ML 25 ML IV (06:28)
[2021-09-07] MEDS: magnesium sulfate premix 2 GM/50 ML PIGGYBACK IV ×2 (06:29→14:36)
[2021-09-07 07:47] LABS: Glucose Point of Care 92 mg/dL (70-110)
[2021-09-07] MEDS: insulin glargine 100 units/1 mL 20 UNIT SUBCUT ×2 (08:34→20:45)
[2021-09-07] MEDS: dextrose 5%-sod chloride 0.45% 1,000 ML 50 ML IV (10:22)
--- NOTE | 2021-09-07 10:25 | P.PN_ITS ---
Subjective Subjective: Pt is doing better. BS in the 200s now. Little confused per family but otherwise said to be doing better. Vitals/I&O/Wt Last Vital Signs Temp 96.9 F L 09/08/21 07:30 Pulse 82 09/08/21 10:30 Resp 24 H 09/08/21 10:30 BP 136/75 09/08/21 08:00 Pulse Ox 96 09/08/21 10:30 09/07/21 09/08/21 09/08/21 22:59 06:59 14:59 Intake Total 290 / 1887.5 1000 / 2887.5 480 / 480 Balance 290 / 1687.5 1000 / 2687.5 480 / 480 Weight last 48 hrs Weight 56.064 kg Weight 52.072 kg Physical Exam Narrative: NAD CVS: S1S2, RRR, Mur (-), JVD (-) Resp: BS+ Clear Abd: soft, NT, BS+, HSM (-) Edema (-)CERTIFIED NURSE MIDWIFE: A&Ox2, non focal Data : 09/08/21 02:50 09/08/21 02:50 A&P Assessment and plan (1) Acute metabolic encephalopathy: improving Status: Acute (2) Diabetic hyperosmolar non-ketotic state: improving Status: Acute (3) Hypokalemia: K 2.6 Status: Acute Plan KCL 40 mEq IVPB x1 KCL 40 mEq po bid D/C IVF NS Start D3 0.45% NS Introduce DM diet Lantus 20 U qd SSI D/C IV Insulin Check Mg level and Rpt K level 4 hrs after IV KCl Attestations Medical Necessity Statement*: Pt w/ Ac Metabolic Encephalopathy, Non Ketotoc diabetic hyperosmolar state, and severe hypokalemia, would need continuation of hospitalization for further critical care Time Spent in Patient Care: 40 min Critical Care Time: 15 min Coding Level of Care Code Acute Bowling Ball Weigher And Packer for Adonis Fwelijah Diagnoses Acute metabolic encephalopathy G93.41 Diabetic hyperosmolar non-ketotic state E11.00 Hypokalemia E87.6
--- NOTE | 2021-09-07 10:27 | PC.CHAP ---
Pastoral Care Encounter/Spiritual Assessment Type of Contact [] Declined computer game programmer visit [] Patient/Family/Request visit [] Outpatient visit [] Follow-up visit [] Physician referral [] Code/Alert [x] Routine visit [] Staff referral [] Actively dying [x] Patient sleeping [] Family support [] [] Out of room [] Palliative care [] [] Receiving care in room [] Pre-surgical visit [] Trauma [] Long length of stay [x] ICU visit [] Other: Relational/Emotional Strength [] Patient feels connected with others/family/visitors/staff [] Distress [] Loneliness/isolation [] Abandonment Spirituality of Patient [] Person of Patricia [] Attends Hoahaoism of their Patricia [] Believes in Prayer [] Reads Bible or Hindu materials [] There are Spiritual issues to be addressed Biztalk Consultant Interventions [x] Prayer [] Active listening [] Non-anxious presence [] Spiritual/emotional support [] Crisis/trauma care [] Spiritual counseling [] Bereavement support [] Provided bereavement packet [] Provided Bible/devotional materials [] Provided toy/stuffed animal, coloring book to patient or family member [] Provided Communion [] Anointing/Mentcle [] Salvation [x] Completed spiritual assessment [] Other: Impact on Illness or Injury [] Angry [] Fearful [] Anxious [] Often cries [] Exhaustion [] Unable to work [] Unable to attend druze [] Unable to walk/stand [] Unable to read [] Unable to drive [] Unable to eat/drink [] Unable to sleep [] Unable to be with family [] Patient intubated [] Other: Summary Time spent with patient
[2021-09-07 12:44] LABS: Glucose Point of Care 263 mg/dL (70-110)
[2021-09-07 17:08] LABS: Osmolality Serum 331 mOsm/kg (278-305)
[2021-09-07 17:31] LABS: Potassium 3.7 mmol/L (3.5-5.1)
[2021-09-07] MEDS: potassium chloride ER 20 mEq Tablet 40 MEQ PO (17:59)
[2021-09-07 19:01] LABS: Glucose Point of Care 297 mg/dL (70-110)
[2021-09-07 20:42] LABS: Glucose Point of Care 390 mg/dL (70-110)
[2021-09-08] VITALS (38 sets, daily range): BP systolic 104–142; BP diastolic 58–87; PULSE 82–122; RESP 16–30; TEMP 36.1–36.9; O2SAT 92–99
[2021-09-08 02:50] LABS: Glucose Point of Care 206 mg/dL (70-110)
[2021-09-08] MEDS: insulin lispro 100 unit/1 mL SUBCUT ×4 (02:52→21:30)
[2021-09-08] MEDS: enoxaparin 40 mg/0.4 mL Syringe SUBCUT (03:34)
[2021-09-08] MEDS: pantoprazole 40 mg SDV IVP (03:34)
[2021-09-08 03:44] LABS: Basophils # 0.1 10^3/uL (0.0-0.1); Basophils % 0.5 %; Eosinophils # 0.2 10^3/uL (0.0-0.8); Hematocrit 40.3 % (37.0-47.0); Hemoglobin 12.8 g/dL (11.5-15.3); Lymphocytes % 25.8 %; Mean Corpuscular HGB Conc 31.8 g/dL (30.0-36.0); Mean Corpuscular Hemoglobin 28.8 pg (28.0-34.0); Mean Corpuscular Volume 90.8 fl (81-99); Mean Platelet Volume 13.9 fL (7.4-10.4); Monocytes # 1.1 10^3/uL (0.2-0.9); Monocytes % 9.2 %; Neutrophils % 62.1 %; Nucleated Red Blood Cells % 0 %; Platelet Count 229 10^3/cmm (130-400); Red Blood Count 4.44 10^6/uL (4.1-5.3); Red Cell Distribution Width 12.8 % (12.1-15.1); White Blood Count 11.8 10^3/uL (4.0-10.0)
[2021-09-08 04:04] LABS: Alanine Aminotransferase 7 U/L (0-33); Albumin Level 3.4 g/dL (3.5-5.2); Alkaline Phosphatase 151 IU/L (35-105); Anion Gap 13.3 (5-19); Aspartate Amino Transferase 22 U/L (0-32); Blood Urea Nitrogen 14 mg/dL (8-23); Carbon Dioxide 21 mmol/L (22-29); Chloride 108 mmol/L (98-107); Globulin 3.3 g/dL (1.3-4.6); Glucose 191 mg/dL (65-115); Osmolality Calculated 292 mOsm/kg (285-295); Potassium 4.3 mmol/L (3.5-5.1); Sodium 138 mmol/L (136-145); Total Bilirubin 0.3 mg/dL (0.15-1.2); Total Protein 6.7 g/dL (6.6-8.7)
[2021-09-08 06:11] LABS: Glucose Point of Care 63 mg/dL (70-110)
[2021-09-08] MEDS: dextrose 5%-sod chloride 0.45% 1,000 ML 50 ML IV (06:26)
[2021-09-08] MEDS: potassium chloride ER 20 mEq Tablet 40 MEQ PO ×2 (09:15→17:42)
[2021-09-08 09:16] LABS: Glucose Point of Care 192 mg/dL (70-110)
[2021-09-08] MEDS: insulin glargine 100 units/1 mL 20 UNIT SUBCUT ×2 (09:16→21:34)
[2021-09-08 11:46] LABS: Glucose Point of Care 220 mg/dL (70-110)
[2021-09-08 14:36] LABS: Glucose Point of Care 386 mg/dL (70-110)
--- NOTE | 2021-09-08 15:04 | PM.PN ---
Subjective Subjective: Pt doing much better today. Well oriented. Denies CP, SOB, cough. Vitals/I&O/Wt Last Vital Signs Temp 96.9 F L 09/08/21 07:30 Pulse 82 09/08/21 10:30 Resp 24 H 09/08/21 10:30 BP 136/75 09/08/21 08:00 Pulse Ox 96 09/08/21 10:30 09/08/21 09/08/21 09/08/21 06:59 14:59 22:59 Intake Total 1000 / 2887.5 480 / 480 Balance 1000 / 2687.5 480 / 480 Weight last 48 hrs Weight 56.064 kg Weight 52.072 kg Physical Exam Narrative: NAD CVS: S1S2, RRR, Mur (-), JVD (-) Resp: BS+ Clear Abd: soft, NT, BS+, HSM (-) Edema (-) CLINICAL EDUCATION COORDINATOR: A&Ox3, non focal Data : 09/08/21 02:50 09/08/21 02:50 A&P Assessment and plan (1) Hypokalemia: Being corrected Status: Acute (2) Diabetic hyperosmolar non-ketotic state: Better controlled BS Status: Acute (3) Troponin level elevated: Poss Inf HI Status: Acute (4) Acute metabolic encephalopathy: Improved. Due to high BS Status: Acute (5) Hypomagnesemia: being corrected Status: Acute Plan Transfer pt to the CSU Continue Lantus and SSI Will Cardiac Sttress Test F/U K, Mg levels Attestations Medical Necessity Statement*: Pt w/ Ac Metaboli c Encephalopathy, Non Ketotoc diabet ic hyperosmolar st ate, and severe hy pokalemia, would n eed continuation o f hospitalization for further critic al care Time Spent in Patient Care: 40 min Critical Care Time: 10 min Coding Level of Care Code Acute Disease Education Specialist for Chg Fwd Diagnoses Hypokalemia E87.6 Diabetic hyperosmolar non-ketotic state E11.00 Troponin level elevated R77.8 Acute metabolic encephalopathy G93.41 Hypomagnesemia E83.42
--- NOTE | 2021-09-08 18:12 | PC.NURSE ---
This AM patient was a&o to self only but as shift continued mental status improved to a&ox4. Fluids were stopped per verbal orders. Family was at bedside and all questions answered.
--- NOTE | 2021-09-08 18:36 | PC.NURSE ---
Pt was transferred to [facility] at 1830 via bed with all belongings on room air. Staff aware.
--- NOTE | 2021-09-08 19:03 | PC.NURSE ---
Patient to floor at 1835. Patient doing well. No skin issues. No Medications due until tonight. Heart sounds regular, bowel sounds active. No edema present. Hematoma located on left inner forearm.
[2021-09-08] MEDS: atorvastatin 40 mg Tablet PO (21:31)
[2021-09-08 22:00] LABS: Glucose Point of Care 329 mg/dL (70-110)
[2021-09-09] VITALS (8 sets, daily range): BP systolic 98–119; BP diastolic 63–74; PULSE 71–101; RESP 16–18; TEMP 36.5–37.1; O2SAT 94–97
[2021-09-09 01:37] LABS: Glucose Point of Care 135 mg/dL (70-110)
[2021-09-09] MEDS: enoxaparin 40 mg/0.4 mL Syringe SUBCUT (04:24)
[2021-09-09 06:13] LABS: Glucose Point of Care 94 mg/dL (70-110)
[2021-09-09 06:21] LABS: Basophils % 0.4 %; Eosinophils # 0.2 10^3/uL (0.0-0.8); Eosinophils % 2.1 %; Hematocrit 41.2 % (37.0-47.0); Hemoglobin 12.9 g/dL (11.5-15.3); Lymphocytes # 3.1 10^3/uL (0.8-4.8); Lymphocytes % 27.3 %; Mean Corpuscular HGB Conc 31.3 g/dL (30.0-36.0); Mean Corpuscular Volume 92.6 fl (81-99); Mean Platelet Volume 14.1 fL (7.4-10.4); Monocytes % 9.2 %; Neutrophils # 6.79 10^3/uL (1.8-7.7); Neutrophils % 60.6 %; Nucleated Red Blood Cells % 0 %; Platelet Count 175 10^3/cmm (130-400); Red Blood Count 4.45 10^6/uL (4.1-5.3); Red Cell Distribution Width 13.2 % (12.1-15.1); White Blood Count 11.2 10^3/uL (4.0-10.0)
[2021-09-09 06:29] LABS: Alanine Aminotransferase 9 U/L (0-33); Albumin Level 3.3 g/dL (3.5-5.2); Alkaline Phosphatase 126 IU/L (35-105); Anion Gap 11.2 (5-19); Aspartate Amino Transferase 16 U/L (0-32); Blood Urea Nitrogen 14 mg/dL (8-23); Calcium 9.3 mg/dL (8.5-10.5); Carbon Dioxide 20 mmol/L (22-29); Chloride 104 mmol/L (98-107); Globulin 3.5 g/dL (1.3-4.6); Glucose 98 mg/dL (65-115); Osmolality Calculated 272 mOsm/kg (285-295); Potassium 4.2 mmol/L (3.5-5.1); Sodium 131 mmol/L (136-145); Total Bilirubin 0.3 mg/dL (0.15-1.2); Total Protein 6.8 g/dL (6.6-8.7)
[2021-09-09] MEDS: aspirin 81 mg EC Tablet PO (09:10)
[2021-09-09] MEDS: duloxetine 30 mg Capsule PO (09:10)
[2021-09-09] MEDS: insulin glargine 100 units/1 mL 20 UNIT SUBCUT (09:11)
[2021-09-09] MEDS: potassium chloride ER 20 mEq Tablet 40 MEQ PO (09:15)
--- NOTE | 2021-09-09 09:22 | ECG_ITS ---
[facility] Test Date: 2021-09-10 Pat Name: Shanon Chávez Department: Room: 256 Gender: Female Shipping Room Supervisor: Olga Oleary : 1945 Requested By: Francis Sears Order Number: [id number] Dl MD: Shila Lira M.D. Interpretive Statements NAME OF STUDY: LEXISCAN SESTAMIBI STRESS TEST INDICATION: Elevated Troponin PROCEDURE: At the baseline, the blood pressure was 171/59 mmHg, oxygen saturation 93% with a heart rate of 89 beats per minute. The electrocardiogram showed normal sinus rhythm, low QRS voltage. 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 Baseline artifact. The Lexiscan was infused over a period of 20 seconds. A total of 0.4 milligrams of Lexiscan was infused. The stress phase was continued for a total of 5 minutes. Heart rate at the end of the stress phase was 102 bpm, oxygen saturation 95% with a blood pressure of 91/68 mmHg. The EKG at the peak infusion revealed sinus tachycardia at 102 bpm with no significant [address]-T wave changes. The study was terminated to protocol completion. Sestamibi was injected 20 seconds after the Lexiscan infusion. Blood pressure at the end of the recovery phase was 168/99 mmHg, oxygen saturation 95% with a heart rate of 103 beats per minute. CONCLUSION: 1. No significant EKG changes with the LexiScan infusion 2. No LexiScan induced chest pain or cardiac arrhythmia. 3. Baseline hypertension with normal blood pressure and heart rate response. 4. Functional status could not be assessed due to pharmacological protocol. 5. Sestamibi/sestamibi perfusion scan pending; see separate report. Electronically Signed On 09-10-2021 11:20:34 CDT by Shila Lira M.D. [id number]
--- NOTE | 2021-09-09 11:25 | PC.SOCIAL ---
IMM update IMM updated with patient. Verbalized an understanding. Copy Pg 2 provided. Initialled, dated, timed, and placed in chart.
--- NOTE | 2021-09-09 11:32 | PC.NURSE ---
EMERGENCY DOCTOR NOTIFIED TO SCHEDULE STRESS TEST FOR TOMORROW MORNING.
--- NOTE | 2021-09-09 11:34 | PC.SOCIAL ---
IMM update IMM updated with patient. Verbalized an understanding. Copy Pg 2 provided. Initialled, dated, timed, and placed in chart.
--- NOTE | 2021-09-09 13:49 | P.PN_ITS ---
Subjective Subjective: Pt is doing better. BS are much improved. Denies CP, SOB, cough Vitals/I&O/Wt Last Vital Signs Temp 97.7 F 09/09/21 12:00 Pulse 95 09/09/21 12:00 Resp 17 09/09/21 12:00 BP 115/72 09/09/21 12:00 Pulse Ox 95 09/09/21 12:00 09/08/21 09/09/21 09/09/21 22:59 06:59 14:59 Intake Total 350 / 830 100 / 930 240 / 240 Output Total 150 / 150 200 / 350 Balance 200 / 680 -100 / 580 240 / 240 Weight last 48 hrs Weight 55.338 kg Weight 56.064 kg Physical Exam Narrative: NAD CVS: S1S2, RRR, Mur (-), JVD (-) Resp: BS+ Clear Abd: soft, NT, BS+, HSM (-) Edema (-) TOOL ROOM ATTENDANT: A&Ox3, non focal Data : 09/09/21 05:36 09/09/21 05:36 A&P Assessment and plan (1) Diabetic hyperosmolar non-ketotic state: DM better controlled Status: Acute (2) Acute metabolic encephalopathy: improved Status: Acute (3) Troponin level elevated: Had high Tropinins on adm w/ ECG showing Inf [place] possibly. R/O CAD Status: Acute (4) Hypomagnesemia: corrected Status: Acute (5) Hypokalemia: corrected Status: Acute Plan Nuc Med Stress Test tomorrow. If neg, can go home Attestations Medical Necessity Statement*: Pt w/ Ac Metabolic Encephalopathy, Non Ketotoc diabetic hyperosmolar st ate, and severe hypokalemia, and ghulam Troponins w/ ECG changes would need continuation of hospitalization for further critic al care and hospitalization Time Spent in Patient Care: 40 min Coding Level of Care Code Acute Diesel Engineer for Chg Fwd Diagnoses Diabetic hyperosmolar non-ketotic state E11.00 Acute metabolic encephalopathy G93.41 Troponin level elevated R77.8 Hypomagnesemia E83.42 Hypokalemia E87.6
[2021-09-09 14:26] LABS: Glucose Point of Care 416 mg/dL (70-110)
[2021-09-09] MEDS: insulin lispro 100 unit/1 mL SUBCUT ×2 (14:31→20:44)
[2021-09-09 17:00] LABS: Glucose Point of Care 359 mg/dL (70-110)
--- NOTE | 2021-09-09 18:56 | PC.NURSE ---
Notified Dr. Sears of Patients blood Sugar at evening meal. Blood sugar was 359. Patient is on Q6H checks. Blood sugar check ruddy by RESEARCH ADMINISTRATOR. Dr. Sears changed Lantus to 25 mg Qam and HS. Ordered Consistant Carb as well.
[2021-09-09 20:41] LABS: Glucose Point of Care 334 mg/dL (70-110)
[2021-09-09] MEDS: atorvastatin 40 mg Tablet PO (20:43)
[2021-09-09] MEDS: insulin glargine 100 units/1 mL 25 UNIT SUBCUT (20:45)
[2021-09-10] VITALS: BP 110/64; PULSE 93; RESP 17; TEMP 36.6; O2SAT 95
[2021-09-10 02:25] LABS: Glucose Point of Care 74 mg/dL (70-110)
[2021-09-10 03:05] LABS: Glucose Point of Care 85 mg/dL (70-110)
[2021-09-10 04:00] VITALS: BP 105/66; PULSE 89; RESP 16; TEMP 36.6; O2SAT 92
[2021-09-10] MEDS: enoxaparin 40 mg/0.4 mL Syringe SUBCUT (05:19)
[2021-09-10 05:47] VITALS: PULSE 77
[2021-09-10] MEDS: regadenoson 0.4 Mg/5 ml Syringe IVP (07:56)
[2021-09-10 08:17] VITALS: BP 168/99; PULSE 103
--- NOTE | 2021-09-10 09:25 | NMCV_ITS ---
NM isaias perf SPECT r/s* [id number] Shanon Chávez Age: 75 Gender: F : 1945 Exam Date: 09/10/2021 07:04 Ordering Phys: Francis Sears MD Technologist: HARVINDER Nagel Exam Location: [facility] Indications: CHEST PAIN STRESS TEST Please see separate [facility] for [facility] findings IMAGE PROTOCOL Rest/Stress 1 Lexiscan Day Radiopharmaceutical Dose (mCi) Administration Site Administered by Rest: Tc-99m 10.8 IV HARVINDER Umanzor Sestamibi Stress:Tc-99m 32.7 IV HARVINDER Umanzor Sestamibi Rest: 10-Sep-2021 60 Discovery 630 Stress: 10-Sep-2021 30 Discovery 630 0.4mg Lexiscan. Images obtained in supine and prone position. SPECT RESULTS Technical Quality: Excellent Raw Data Analysis: Normal Image Corrections: No attenuation or motion correction applied Summed Stress Score: 3 Summed Rest Score: 3 Summed Difference Score: 1 PERFUSION FINDINGS Small size perfusion abnormality of mild severity of mid inferior and mid inferolateral wall on rest and stress images. FUNCTIONAL RESULTS (calculated via Gated SPECT) Stress Image LV EF (%): 89 Stress EDV (mL):28 TID: 1.1 Stress ESV (mL):3 FUNCTIONAL FINDINGS: The left ventricle is normal in size. Transient Ischemia Dilatation of 1.1. There is normal left ventricular systolic function. The left ventricular ejection fraction is hyperdynamic with a value of 89%. There is hyperdynamic left ventricular wall thickening with no regional wall motion abnormality. IMPRESSIONS 1. Small sized perfusion abnormality of mild severity of mid inferior and mid inferolateral montanez. This may represent old myocardial infarction in right coronary artery territory or attenuation artifact. 2. Overall left ventricular systolic function is normal without regional wall motion abnormalities. 3. The left ventricular ejection fraction is hyperdynamic with a value of 89%. 4. No significant EKG changes with Lexiscan infusion. Refer to separate report for details. 5. Scan indicates low risk for cardiac events. Shila Lira MD (Electronically Signed) Final Date: 10 September 2021 11:26 S
[2021-09-10] MEDS: duloxetine 30 mg Capsule PO (09:56)
[2021-09-10] MEDS: aspirin 81 mg EC Tablet PO (09:56)
[2021-09-10] MEDS: insulin glargine 100 units/1 mL 25 UNIT SUBCUT (10:34)
--- NOTE | 2021-09-10 10:40 | P.DS_ITS ---
Discharge Providers Date of Admission: 09/06/21 04:41 Date of Discharge: September 10, 2021 Attending Provider at Admission: Adria Lemus Attending Provider at Discharge: Jemima King MD Primary Care Provider: Camila Rao MD Diagnoses at Discharge Discharge Diagnosis (1) Diabetic hyperosmolar non-ketotic state: Status: Acute (2) Acute metabolic encephalopathy: Status: Acute (3) Troponin level elevated: Status: Acute (4) Hypomagnesemia: Status: Acute (5) Hypokalemia: Status: Acute Reason for Visit Reason for Visit: DIABETES Hospital Course Hospital Course Admitting note by Dr. More 75-year-old lady with history of DM 2 among other chronic conditions was brought in for evaluation due to altered mental status to ER where she is found to have extremely elevated blood glucose as high as 1201.? History obtained discussion with ER physician and from documentation as she is unable to provide history.? She appears to now realize that she is in the hospital, tells me I will be all right , dialysis deny pain or discomfort, does not answer other questions.? Cannot tell me the year. Reports he received insulin 30 minutes prior to coming to the ER.? Serum and urine ketones negative.? TSH normal.? Lactic acid 2.5.? Bicarb 20, anion gap 23.8, BUN 25, creatinine 1.2.? Alkaline phosphatase 211. In ER she has been fluid bolus, started on IV hydration, insulin drip. She is afebrile, without leukocytosis.? Exam and assessment in ER did not reveal infection as possible trigger of her condition.? Chest x-ray without acute findings, CT head without acute abnormality, chronic microvascular ischemic changes.? CT cervical spine without acute abnormality.? CT chest abdomen pelvis with contrast with noted large hiatal hernia, mild basilar atelectasis, no change in intrathoracic distention of goiter, chronic compression fractures T11 and T12, no acute changes from prior CT/01/10.? No acute findings in abdomen pelvis.? Current displacement of left hip prosthesis.? Old lumbar spine and pelvic fracture Hospital course Patient was admitted for management and evaluation of hyperosmolar nonketotic hyperglycemia, insulin drip was gradually weaned off, she was started on Lantus and sliding scale. Her encephalopathy improved significantly. Hemoglobin A1c has worsened from 9-12, added Humalog low-dose sliding scale and escalated Lantus dose to 26 units twice daily. This was conveyed to her daughter. Secondary to troponin leak card stress test was obtained which was unremarkable. Physical Exam Narrative: Very pleasant cooperative female Fatigue lethargic Nonfocal neuro exam S1, S2 Breathing well on room air Abdomen is soft No joint swelling Discharge Data Studies Completed and Pending Completed Studies During Hospitalization Category Date Time Status CT cervical spin wo con* [id number] Urgent Cat Scan 09/05/21 21:[address] chest abd pel w con* Urgent Cat Scan 09/05/21 23:[address] head wo con* [id number] Urgent Cat Scan 09/05/21 21:25 Completed Cardiac Stress Test MIBI [Sestamibi Stress Test Request Exams 09/09/21 09:22 Draft ] Routine XR chest 1V portable [id number] Urgent Exams 09/05/21 21:25 Completed Pending at discharge Category Date Time Status Blood Culture Stat Lab 09/05/21 23:11 Results NM isaias perf SPECT r/s* [id number] Routine Nuc Med 09/10/21 09:25 Taken Radiology Impressions Chest X-Ray 09/05/21 21:25 IMPRESSION: No acute findings. Head CT 09/05/21 21:25 IMPRESSION: No acute intracranial abnormality. Chronic microvascular ischemic changes. Cervical Spine CT 09/05/21 21:29 IMPRESSION: No acute abnormality Chest/Abdomen/Pelvis CT 09/05/21 23:35 IMPRESSION: 1. Large hiatus hernia 2. Mild basilar atelectasis 3. No change in intrathoracic extension of goiter 4. Chronic compression fractures at T11 and T12 5. No acute findings in the chest or significant change compared with 09/27/2020 IMPRESSION: 1. No acute findings in the abdomen or pelvis. 2. Chronic displacement of left hip prosthesis. 3. Old lumbar spine and pelvic fractures. Laboratory Results WBC 11.2 10^3/uL (4.0-10.0) H 09/09/21 05:36 RBC 4.45 10^6/uL (4.1-5.3) 09/09/21 05:36 Hgb 12.9 g/dL (11.5-15.3) 09/09/21 05:36 Hct 41.2 % (37.0-47.0) 09/09/21 05:36 MCV 92.6 fl (81-99) 09/09/21 05:36 MCH 29.0 pg (28.0-34.0) 09/09/21 05:36 MCHC 31.3 g/dL (30.0-36.0) 09/09/21 05:36 RDW 13.2 % (12.1-15.1) 09/09/21 05:36 Plt Count 175 10^3/cmm (130-400) 09/09/21 05:36 MPV 14.1 fL (7.4-10.4) H 09/09/21 05:36 Neut % (Auto) 60.6 % 09/09/21 05:36 Lymph % (Auto) 27.3 % 09/09/21 05:36 [place] % (Auto) 9.2 % 09/09/21 05:36 Eos % (Auto) 2.1 % 09/09/21 05:36 Baso % (Auto) 0.4 % 09/09/21 05:36 Neut # (Auto) 6.79 10^3/uL (1.8-7.7) 09/09/21 05:36 Lymph # (Auto) 3.1 10^3/uL (0.8-4.8) 09/09/21 05:36 [place] # (Auto) 1.0 10^3/uL (0.2-0.9) H 09/09/21 05:36 Eos # (Auto) 0.2 10^3/uL (0.0-0.8) 09/09/21 05:36 Baso # (Auto) 0.0 10^3/uL (0.0-0.1) 09/09/21 05:36 Nucleated RBC % (auto) 0 % 09/09/21 05:36 Nucleated RBCs # 0.0 /100WBC 09/09/21 05:36 Specimen Type Arterial 09/05/21 21:40 Sample Site Umbilical cord 09/05/21 21:40 ABG pH 7.41 (7.35-7.45) 09/05/21 21:40 ABG pCO2 33.1 mmHg (35-45) L 09/05/21 21:40 ABG pO2 68.8 mmHg (80.0-100.0) L 09/05/21 21:40 ABG HCO3 21.0 mmol/L (22-26) L 09/05/21 21:40 ABG Base Excess -2.9 mmol/L (-2.0-2.0) L 09/05/21 21:40 Timmy Test Pos 09/05/21 21:40 Hematocrit 39.7 % (37-47) 09/05/21 21:40 O2 Delivery Device None 09/05/21 21:40 Warehouse Team Member ID [email or web address] 09/05/21 21:40 Sodium 131 mmol/L (136-145) L 09/09/21 05:36 Potassium 4.2 mmol/L (3.5-5.1) 09/09/21 05:36 Chloride 104 mmol/L (98-107) 09/09/21 05:36 Carbon Dioxide 20 mmol/L (22-29) L 09/09/21 05:36 Anion Gap 11.2 (5-19) 09/09/21 05:36 BUN 14 mg/dL (8-23) 09/09/21 05:36 Creatinine 0.8 mg/dL (0.5-0.9) 09/09/21 05:36 GFR Calculation Not Reportable 09/09/21 05:36 Glucose 98 mg/dL (65-115) 09/09/21 05:36 POC Glucose 85 mg/dL (70-110) 09/10/21 03:00 Estimat Average Glucose 303 09/05/21 21:21 Hemoglobin A1c 12.2 % (4.0-6.0) H 09/05/21 21:21 Serum Osmolality 331 mOsm/kg (278-305) H 09/05/21 23:30 Calculated Osmolality 272 mOsm/kg (285-295) L 09/09/21 05:36 Lactic Acid 2.5 mmol/L (0.5-2.2) H 09/05/21 23:11 Lactic Acid (Sepsis) 3.5 mmol/L (0.5-2.2) H 09/06/21 03:56 Calcium 9.3 mg/dL (8.5-10.5) 09/09/21 05:36 Phosphorus 3.2 mg/dL (2.5-4.5) 09/05/21 23:30 Magnesium 1.6 mg/dL (1.7-2.3) L 09/07/21 04:24 Total Bilirubin 0.3 mg/dL (0.15-1.2) 09/09/21 05:36 AST 16 U/L (0-32) 09/09/21 05:36 ALT 9 U/L (0-33) 09/09/21 05:36 Alkaline Phosphatase 126 IU/L (35-105) H 09/09/21 05:36 Creatine Kinase 145 U/L (26-192) 09/05/21 21:21 Troponin T Baseline 44 ng/L (0-10) H 09/05/21 21:21 Troponin T 120 Minute 45.58 ng/L (0-10) H 09/05/21 23:30 Delta Troponin T 1.58 ABS# (0-10) 09/05/21 23:30 Troponin T Hi Sens 6Hr 32.99 ng/L (0-10) H 09/06/21 03:48 Troponin T Hi Sens 6Hr Delta -11.01 ng/L (0-12) L 09/06/21 03:48 NT-Pro-B Natriuret Pep 321 pg/mL (0-125) H 09/05/21 21:21 Total Protein 6.8 g/dL (6.6-8.7) 09/09/21 05:36 Albumin 3.3 g/dL (3.5-5.2) L 09/09/21 05:36 Globulin 3.5 g/dL (1.3-4.6) 09/09/21 05:36 TSH 2.21 uIU/mL (0.27-4.20) 09/05/21 21:21 Urine Color Colorless (Yellow) 09/05/21 22:04 Urine Appearance Clear (CLEAR) 09/05/21 22:04 Urine pH 5 (5-7) 09/05/21 22:04 Ur Specific [place] 1.010 (1.005-1.030) 09/05/21 22:04 Urine Protein Neg (Negative) 09/05/21 22:04 Urine Glucose (UA) 4+ (Normal) H 09/05/21 22:04 Urine Ketones Negative (Negative) 09/05/21 22:04 Urine Blood Neg (Negative) 09/05/21 22:04 Urine Nitrate Negative (Negative) 09/05/21 22:04 Urine Bilirubin Neg (Negative) 09/05/21 22:04 Urine Urobilinogen Norm mg/dL (Negative) 09/05/21 22:04 Ur Leukocyte Esterase Negative (Negative) 09/05/21 22:04 Salicylates < 0.3 mg/dL (3-10) L 09/05/21 21:21 Acetaminophen < 5.0 ug/mL (10-30) L 09/05/21 21:21 Ethyl Alcohol < 10 mg/dL (0-10) 09/05/21 21:21 Serum Ketones Negative (Negative) 09/05/21 21:21 Vitals Last Vital Signs Temp 97.8 F 09/10/21 04:00 Pulse 103 H 09/10/21 08:17 Resp 16 09/10/21 04:00 BP 168/99 09/10/21 08:17 Pulse Ox 92 09/10/21 04:00 Discharge Plan Discharge Patient Disposition: Home Condition: Stable Prescriptions: New Novolin N Flexpen 100 unit/mL (3 mL) insulin pen See Rx Instructions .ROUTE .COMPLEX Qty: 15 4RF Rx Instructions: Low dose sliding scale as given Continued aspirin 81 mg tablet,delayed release (DR/EC) 81 mg PO DAILY 0RF atorvastatin 40 mg Tablet 40 mg PO BEDTIME 0RF potassium chloride 10 mEq tablet extended release 20 meq PO DAILY 0RF ergocalciferol (vitamin D2) 1,250 mcg (50,000 unit) capsule 50,000 unit PO Q7D 0RF fluticasone propionate 50 mcg/actuation [place],Suspension 2 spray INTRANASAL DAILY 0RF Rx Instructions: administer into each nostril Cymbalta 30 mg Capsule,Delayed Release(Dr/Ec) 30 mg PO DAILY 0RF Changed Levemir FlexTouch U-100 Insuln 100 unit/mL (3 mL) insulin pen 26 unit SUBCUT BID Qty: 0 0RF Discharge Orders: Discharge Order (Routine); Ordered 09/10/21 Ordered By: Jemima King [place]errals: [facility] [place]) [Outside] Camila Rao MD [Primary Care Provider] - 09/24/21 1:15 pm Christen Tavares MD [Physician] - 09/18/21 9:15 am Discharge Diet: Diabetic Discharge Activity: Increase activity as tolerated and Use walker/crutches as instructed Patient Instructions: Insulin Aspart, Recombinant (By injection) (Novolog, Novolog FlexPen), Type 2 Diabetes in the Older Adult (DC), Opioid Safety Activity Restrictions/Additional Instructions: Low Dose sliding scale 111 ? 150 2 units 151 ? 200 4 units 201 ? 250 6 units 251 ? 300 8 units 301 ? 350 10 units >350 12 units (call physician) Discharge Attestations Time Spent in Discharge Care*: less than 30 min Quality Metrics Clinical Quality Measures [ No reported AMI, CVA or VTE this stay] Coding Level of Care Code Acute Chg FW DC note Diagnoses Diabetic hyperosmolar non-ketotic state E11.00 Acute metabolic encephalopathy G93.41 Troponin level elevated R77.8 Hypomagnesemia E83.42 Hypokalemia E87.6
[2021-09-10 10:43] LABS: Glucose Point of Care 175 mg/dL (70-110)
[2021-09-10 11:46] VITALS: BP 107/68; PULSE 89; RESP 16; TEMP 36.9; O2SAT 95
--- NOTE | 2021-09-10 13:54 | PC.NURSE ---
Discharge paperwork, follow up appointments and medications gone over with patient and family. Verbalized understanding.
[2021-09-10 14:55] VITALS: BP 107/68; PULSE 89; RESP 16; TEMP 36.9; O2SAT 95
--- NOTE | 2021-09-11 15:32 | PC.SOCIAL ---
Novolin N not covered on formulary. Switched to Humulin N per Dr King verbal order and to follow same instructions per low dose sliding scale. Notified pharmacy of change and verified pt name and . They will run and see if covered. If not will call to explore other options.
== END 2021-09-10 13:45 | disposition home health service (06) | DRG 637 ==
LOC: ER 09-06 02:58 → ICU 09-06 04:47 → MEDSURG 09-08 18:25
PROVIDERS: Internal Medicine; Admitting Provider Internal Medicine; Emergency Provider Emergency Medicine; PCP Internal Medicine; Visit Provider Internal Medicine
DX: E11.00 Type 2 diabetes mellitus with hyperosmolarity without nonketotic hyperglycemic-hyperosmolar coma (NKHHC) (principal); G93.41 Metabolic encephalopathy; G89.29 Other chronic pain; F32.A Depression, unspecified; E78.5 Hyperlipidemia, unspecified; F43.12 Post-traumatic stress disorder, chronic; K44.9 Diaphragmatic hernia without obstruction or gangrene; E04.9 Nontoxic goiter, unspecified; E11.22 Type 2 diabetes mellitus with diabetic chronic kidney disease; N18.9 Chronic kidney disease, unspecified; E83.42 Hypomagnesemia; Z79.82 Long term (current) use of aspirin; Z79.4 Long term (current) use of insulin; R77.8 Other specified abnormalities of plasma proteins; T84.021D Dislocation of internal left hip prosthesis, subsequent encounter; Y79.8 Miscellaneous orthopedic devices associated with adverse incidents, not elsewhere classified
CPT/HCPCS: 36415; 36416; 36600; 70450; 71045; 71260; 72125; 74177; 78452; 80053; 80307; 81003; 82009; 82550; 82803; 82962; 83036; 83605; 83735; 83880; 83930; 84100; 84132; 84443; 84484; 85025; 87040; 93005; 93017; 96365; 96366; 96372; 96375; 99285; A9500; C9113; J1650; J1815 ×2; J2060; J2785; J3475; J3480; J7030; J7050; J7799; Q9967

== ENCOUNTER → 2021-09-18 14:58 | Outpatient (BNVA) | payer MEDICARE, SELFPAY | PROVIDERS: PCP Internal Medicine; Visit Provider Internal Medicine | DX: M80.059A Age-related osteoporosis with current pathological fracture, unspecified femur, initial encounter for fracture (principal); E34.9 Endocrine disorder, unspecified; E83.59 Other disorders of calcium metabolism; Z79.4 Long term (current) use of insulin | CPT/HCPCS: 99214 ==

== ENCOUNTER 2021-11-16 06:00 | Outpatient (RCR) | payer MEDICARE, SELFPAY | END 2021-11-20 23:59 | disposition home or self-care (01) | LOC: SPT 06:00 | PROVIDERS: PCP Internal Medicine; Referring Provider Internal Medicine; Visit Provider Internal Medicine | DX: Z74.09 Other reduced mobility (principal) | CPT/HCPCS: 97161 ==

== ENCOUNTER 2021-11-16 09:11 | Outpatient (CLI) | payer MEDICARE, SELFPAY ==
--- NOTE | 2021-11-16 09:24 | MM_ITS ---
WS: [id number] VIEWS: MLO and CC views both breasts. 3D digital tomosynthesis is also included in this exam. Comparison made with prior exam of 12/26/2017, 07/14/2018, 09/29/2020. Findings: There was no sign of mass, architectural distortion or suspicious calcification in either breast. Fa tty MM/[place] [id number] Impression: BI-RADS: 2-Benign FOLLOW-UP: 1 Year Follow-up This mammogram was also analyzed by the Computer Aided Detection System R2 Imag e Cutting And Splicing Supervisor.
== END 2021-11-16 09:12 | disposition home or self-care (01) ==
PROVIDERS: PCP Internal Medicine; Visit Provider Internal Medicine
DX: Z12.31 Encounter for screening mammogram for malignant neoplasm of breast (principal)
CPT/HCPCS: 77063; 77067

== ENCOUNTER 2021-11-21 06:00 | Outpatient (RCR) | payer MEDICARE, SELFPAY | END 2021-12-20 23:59 | disposition home or self-care (01) | LOC: SPT 06:00 | PROVIDERS: PCP Internal Medicine; Referring Provider Internal Medicine; Visit Provider Internal Medicine | DX: Z74.09 Other reduced mobility (principal) | CPT/HCPCS: 97110; 97116 ==

== ENCOUNTER → 2021-12-19 10:36 | Outpatient (BNVA) | payer MEDICARE, SELFPAY | PROVIDERS: PCP Internal Medicine; Referring Provider Internal Medicine; Visit Provider Orthopaedic Surgery | DX: M25.552 Pain in left hip (principal) | CPT/HCPCS: 73502; 99212 ==

== ENCOUNTER → 2021-12-20 14:04 | Outpatient (BNVA) | payer MEDICARE, SELFPAY | PROVIDERS: PCP Internal Medicine; Visit Provider Internal Medicine | DX: M80.059A Age-related osteoporosis with current pathological fracture, unspecified femur, initial encounter for fracture (principal); E34.9 Endocrine disorder, unspecified; E83.59 Other disorders of calcium metabolism; E11.9 Type 2 diabetes mellitus without complications; Z79.4 Long term (current) use of insulin | CPT/HCPCS: 99214 ==

== ENCOUNTER 2021-12-21 06:00 | Outpatient (RCR) | payer MEDICARE, SELFPAY | END 2022-01-20 23:59 | disposition home or self-care (01) | LOC: SPT 06:00 | PROVIDERS: PCP Internal Medicine; Referring Provider Internal Medicine; Visit Provider Internal Medicine | DX: Z74.09 Other reduced mobility (principal) | CPT/HCPCS: 97110; 97116; 97150 ==

== ENCOUNTER 2022-01-21 06:00 | Outpatient (RCR) | payer MEDICARE, SELFPAY | END 2022-02-20 23:59 | disposition home or self-care (01) | LOC: SPT 06:00 | PROVIDERS: PCP Internal Medicine; Referring Provider Internal Medicine; Visit Provider Internal Medicine | DX: Z74.09 Other reduced mobility (principal) | CPT/HCPCS: 97110; 97116 ==

== ENCOUNTER 2022-02-21 06:00 | Outpatient (RCR) | payer MEDICARE, SELFPAY | END 2022-03-22 23:59 | disposition home or self-care (01) | LOC: SPT 06:00 | PROVIDERS: PCP Internal Medicine; Visit Provider Internal Medicine | DX: Z74.09 Other reduced mobility (principal) | CPT/HCPCS: 97110; 97116 ==

== ENCOUNTER → 2022-03-18 09:30 | Outpatient (BNVA) | payer MEDICARE, SELFPAY | PROVIDERS: PCP Internal Medicine; Visit Provider Podiatrist Foot & Ankle Surgery | DX: E11.8 Type 2 diabetes mellitus with unspecified complications (principal); E11.42 Type 2 diabetes mellitus with diabetic polyneuropathy; L60.3 Nail dystrophy; M21.41 Flat foot [pes planus] (acquired), right foot; M21.42 Flat foot [pes planus] (acquired), left foot; R09.89 Other specified symptoms and signs involving the circulatory and respiratory systems; Z79.4 Long term (current) use of insulin | CPT/HCPCS: 99214 ==

== ENCOUNTER 2023-03-23 06:00 | Outpatient (RCR) | payer MEDICARE, SELFPAY | END 2023-04-22 23:59 | disposition home or self-care (01) | LOC: SPT 06:00 | PROVIDERS: PCP Internal Medicine; Visit Provider Internal Medicine | DX: R29.6 Repeated falls (principal) | CPT/HCPCS: 97760; L1812 ==